=== PATIENT | female | born 1935 | race Hispanic/Latino ===

== ENCOUNTER 2017-09-21 23:09 | Emergency (ER) | payer MEDICARE, OTHER ==
[~2017-09-21] VITALS: Ht 149.9 cm; Wt 68.0 kg
[~2017-09-21 23:09] MED LIST: ARICEPT5 MG PO; ASPIRIN EC81 MG PO; ATELVIA35 MG PO; ATORVASTATIN CA10 MG PO; CARBAMAZEPINE200 MG PO; CLOPIDOGREL75 MG PO; DIOVAN160 MG PO; ISOSORBIDE MONO30 MG PO; LASIX40 MG PO; LEVAQUIN500 MG PO; MECLIZINE HCL12.5 MG PO; METOPROLOL TAR100 MG PO; METOPROLOL TART50 MG PO; OMEPRAZOLE20 MG PO; POTASSIUM CHLO20 ME1 PO; TYLENOL WITH C1 EACH PO
[2017-09-21] MEDS ORDERED: TRAMADOL HCL 50 MG TAB PO ONE (23:30)
[2017-09-21 23:39] LABS: BILIRUBIN,URINE NEGATIVE (NEGATIVE); KETONES,URINE NEGATIVE (NEGATIVE); LEUKOCYTE ESTERASE ,URINE NEGATIVE (NEGATIVE); NITRITE,URINE NEGATIVE (NEGATIVE); PROTEIN,URINE DIPSTICK NEGATIVE (NEGATIVE); URINE UROBILINOGEN 0.2 mg/dL (0.2 - 1)
[2017-09-21 23:40] LABS: CLARITY,URINE CLEAR (CLEAR); COLOR,URINE STRAW (YELLOW)
[2017-09-21 23:46] LABS: BACTERIA,URINE FEW /HPF; EPITHELIAL CELLS,URINE RARE /LPF; WBC,URINE (MAN) 0-5 /HPF (0-5)
--- NOTE | 2017-09-22 00:33 | Diagnostic Imaging Report ---
LUMBAR 3 VIEW, THORACIC SPINE 2VW Comparison: None Clinical history: Back pain Findings: Thoracic spine: Image quality degraded by motion artifact. Limited visualization of the cervicothoracic junction. Kyphosis with multilevel degenerative changes and mild anterior wedging of the midthoracic and lower vertebral bodies. Incidental median sternotomy wires, cholecystectomy clips. Lumbar spine: Slightly exaggerated lordosis. No significant listhesis. Moderate to severe L4 and S1 facet arthrosis. Impression: Multilevel degenerative changes and mild anterior wedging deformities with thoracic kyphosis and exaggerated lumbar lordosis. Signed by: Dr Zamzam Duffy MD on 09/22/2017 12:30 AM
[2017-09-22 01:25] VITALS: BP 143/73
== END 2017-09-22 01:34 | disposition home or self-care (01) ==
LOC: ER 23:09
DX: S39.012A Strain of muscle, fascia and tendon of lower back, initial encounter (principal); I11.0 Hypertensive heart disease with heart failure; I50.9 Heart failure, unspecified; I25.10 Atherosclerotic heart disease of native coronary artery without angina pectoris; Z86.711 Personal history of pulmonary embolism; Z86.718 Personal history of other venous thrombosis and embolism
CPT/HCPCS: 72070; 72100; 81001; 99283

== ENCOUNTER 2017-11-17 22:22 | Inpatient (IN) | payer MEDICARE, OTHER ==
[~2017-11-17] VITALS: Ht 149.9 cm; Wt 69.0 kg
--- OUTSIDE RECORDS SUMMARY | 2017-11-17 22:24 | XMS REPORT ---
Author Author [facility] Address Unknown Phone Unavailable Care Team Providers Care Unattended Ground Sensor Specialist Name Role Phone VAISHNAVI URIAS Unavailable Unavailable Problems This patient has no known problems. Allergies, Adverse Reactions, Alerts This patient has no known allergies or adverse reactions. Medications This patient has no known medications. Results Test Description Test Time Test Comments Text Results Atomic Results Result Comments THORACIC SPINE 2VW [place] [address] Patient Name: SUNNY MORALES MR #: [id number] : 1935 Age/Sex: 82/F Req # : [id number] Adm Physician: Ordered by: VAISHNAVI URIAS MD Report # : [id number] Location: ER Room/Bed: Procedure: 1228 [id number] DX/THORACIC SPINE 2VW Exam Date: 09/21/17 Exam Time: 2300 REPORT STATUS: Signed LUMBAR 3 VIEW, THORACIC SPINE 2VW Comparison: None Clinical history: Back pain Findings: Thoracic spine: Image quality degraded by motion artifact. Limited visualization of the cervicothoracic junction. Kyphosis with multilevel degenerative changes and mild anterior wedging of the midthoracic and lower vertebral bodies. Incidental median sternotomy wires, cholecystectomy clips. Lumbar spine: Slightly exaggerated lordosis. No significant listhesis. Moderate to severe L4 and S1 facet arthrosis. Impression: Multilevel degenerative changes and mild anterior wedging deformities with thoracic kyphosis and exaggerated lumbar lordosis. Signed by: Dr Aislinn Duffy MD on 09/22/2017 12:30 AM Dictated By: AISLINN DUFFY MD Transcribed By: AUSTIN on 09/22/1729 COPY TO: VAISHNAVI URIAS MD LUMBAR 3 VIEW [place] [address] Patient Name: SUNNY MORALES MR #: [id number] : 1935 Age/Sex: 82/F Req #: [id number] Adm Physician: Ordered by: VAISHNAVI URIAS MD Report #: [id number] Location: ER Room/Bed: Procedure: [id number] DX/LUMBAR 3 VIEW Exam Date: 09/21/17 Exam Time : 2300 REPORT STATUS: Signed LUMBAR 3 VIEW, THORACIC SPINE 2VW Comparison: None Clinical history: Back pain Findings: Thoracic spine: Image quality degraded by motion artifact. Limited visualization of the cervicothoracic junction. Kyphosis with multilevel degenerative changes and mild anterior wedging of the midthoracic and lower vertebral bodies. Incidental median sternotomy wires, cholecystectomy clips. Lumbar spine: Slightly exaggerated lordosis. No significant listhesis. Moderate to severe L4 and S1 facet arthrosis. Impression: Multilevel degenerative changes and mild anterior wedging deformities with thoracic kyphosis and exaggerated lumbar lordosis. Signed by: Dr Aislinn Duffy MD on 09/22/2017 12:30 AM Dictated By: AISLINN DUFFY MD Transcribed By: AUSTIN on 09/22/1729 COPY TO: VAISHNAVI URIAS MD
[2017-11-17 23:16] LABS: BASOPHILS % 0.6 % (0.0-1.0); EOSINOPHILS # (AUTO) 0.1 (0.0-0.4); EOSINOPHILS % 1.4 % (0.0-6.0); HEMATOCRIT 32.3 % (34.2-44.1); HEMOGLOBIN 11.1 g/dL (12.0-16.0); LYMPHOCYTES # (AUTO) 2.1 (1.0-3.2); LYMPHOCYTES % 31.7 % (18.0-39.1); MEAN CORPUSCULAR HEMOGLOBIN 30.1 pg (28-32); MEAN CORPUSCULAR HGB CONC 34.4 g/dL (31-35); MEAN CORPUSCULAR VOLUME 87.5 fL (81-99); MONOCYTES # (AUTO) 0.5 (0.2-0.8); MONOCYTES % 7.9 % (4.4-11.3); NEUTROPHILS # (AUTO) 3.8 (2.1-6.9); NEUTROPHILS % 58.1 % (38.7-80.0); PLATELET COUNT 139 x10e3/uL (140-360); RED BLOOD COUNT 3.69 x10e6/uL (3.6-5.1); RED CELL DISTRIBUTION WIDTH 12.5 % (11.7-14.4)
[2017-11-17 23:21] LABS: INR 1.33; PROTHROMBIN TIME 15.5 seconds (11.9-14.5)
[2017-11-17] MEDS ORDERED: DILTIAZEM HCL60 MG PO (23:33)
[2017-11-17] MEDS ORDERED: ATORVASTATIN CA20 MG PO (23:33)
[2017-11-17] MEDS ORDERED: NITROGLYCERIN0.4 MG SL (23:33)
[2017-11-17] MEDS ORDERED: TRAZODONE HCL50 MG PO (23:33)
[2017-11-17] MEDS ORDERED: AMIODARONE HCL200 MG PO (23:33)
[2017-11-17] MEDS ORDERED: XARELTO10 MG PO (23:33)
[2017-11-17] MEDS ORDERED: TIZANIDINE HCL4 MG PO (23:33)
[2017-11-17] MEDS ORDERED: CARBAMAZEPINE200 MG PO (23:33)
[2017-11-17 23:37] LABS: ALANINE AMINOTRANSFERASE 15 IU/L (0-55); ALBUMIN/GLOBULIN RATIO 1.2 (0.8-2.0); ALKALINE PHOSPHATASE 119 IU/L (40-150); ANION GAP 13.9 mmol/L (8-16); BLOOD UREA NITROGEN 31 mg/dL (7-26); BUN/CREATININE RATIO 24 (6-25); CALCIUM 11.1 mg/dL (8.4-10.2); CARBON DIOXIDE 25 mmol/L (22-29); CHLORIDE 99 mmol/L (98-107); CREATINE KINASE 45 IU/L (29-168); CREATININE, SERUM 1.29 mg/dL (0.57-1.11); EST GLOMERULAR FILTRATION RATE 40 ML/MIN (60-); GLUCOSE 119 mg/dL (74-118); POTASSIUM 3.9 mmol/L (3.5-5.1); SODIUM 134 mmol/L (136-145)
[2017-11-18] VITALS (9 sets, daily range): BP systolic 104–140; BP diastolic 67–75
--- NOTE | 2017-11-18 00:27 | Diagnostic Imaging Report ---
EXAMINATION: CHEST SINGLE (PORTABLE) INDICATION: Chest pain. COMPARISON: 10/25/2016 FINDINGS: TUBES and LINES: None. LUNGS: Lungs are not well inflated. Significant left lower lobe retrocardiac atelectasis and airspace disease. PLEURA: Small left pleural effusion is present. HEART AND MEDIASTINUM: Cardiac size is mildly enlarged. There are atherosclerotic calcifications within the aorta. Midline sternotomy wires are intact. BONES AND SOFT TISSUES: No acute osseous lesion. Soft tissues are unremarkable. UPPER ABDOMEN: No free air under the diaphragm. IMPRESSION: Left lower lobe airspace disease is suspicious for pneumonia and superimposed atelectasis. Small left pleural effusion is present. Signed by: Dr. Delvin Haider M.D. on 11/18/2017 12:24 AM
[2017-11-18] MEDS ORDERED: SODIUM CHLORIDE 0.9% 1000ML 1,000 ML IV STA (00:38)
[2017-11-18] MEDS ORDERED: VANCOMYCIN 1GM/NS 250 ML 250 ML IV ONE (00:45)
[2017-11-18 01:02] LABS: BILIRUBIN,URINE NEGATIVE (NEGATIVE); KETONES,URINE NEGATIVE (NEGATIVE); LEUKOCYTE ESTERASE ,URINE NEGATIVE (NEGATIVE); NITRITE,URINE NEGATIVE (NEGATIVE); PROTEIN,URINE DIPSTICK NEGATIVE (NEGATIVE); URINE UROBILINOGEN 0.2 mg/dL (0.2 - 1)
[2017-11-18 01:03] LABS: CLARITY,URINE CLEAR (CLEAR); COLOR,URINE YELLOW (YELLOW)
[2017-11-18 01:10] LABS: BACTERIA,URINE RARE /HPF; EPITHELIAL CELLS,URINE RARE /LPF; RBC,URINE 0-5 /HPF (0-5); WBC,URINE (MAN) 0-5 /HPF (0-5)
[2017-11-18] MEDS: CEFEPIME HCL 2 GM VIAL IV SCH ×2 (01:30→12:01)
[2017-11-18] MEDS: AZITHROMYCIN 500MG/NS 250 ML 250 ML IV SCH ×2 (01:30→08:42)
[2017-11-18] MEDS ORDERED: ONDANSETRON HCL INJ 2 MG/ML VIAL IV PRN (02:00)
[2017-11-18] MEDS ORDERED: FAMOTIDINE 20 MG/2 ML VIAL IV SCH (02:00)
[2017-11-18] MEDS ORDERED: SODIUM CHLORIDE 0.9% 1000ML 1,000 ML IV SCH (02:00)
[2017-11-18] MEDS: FAMOTIDINE 20 MG/2 ML VIAL IV SCH ×2 (08:42→21:15)
[2017-11-18] MEDS: ASPIRIN 81 MG ENTERIC COATED PO SCH (08:42)
[2017-11-18] MEDS ORDERED: TRAZODONE HCL 50 MG TAB PO PRN (09:45)
[2017-11-18] MEDS ORDERED: TIZANIDINE HCL 4 MG TAB PO PRN (09:45)
[2017-11-18 10:44] LABS: BASOPHILS % 0.6 % (0.0-1.0); EOSINOPHILS # (AUTO) 0.1 (0.0-0.4); EOSINOPHILS % 1.4 % (0.0-6.0); HEMATOCRIT 34.3 % (34.2-44.1); HEMOGLOBIN 11.3 g/dL (12.0-16.0); LYMPHOCYTES # (AUTO) 1.6 (1.0-3.2); LYMPHOCYTES % 30.6 % (18.0-39.1); MEAN CORPUSCULAR HEMOGLOBIN 29.7 pg (28-32); MEAN CORPUSCULAR HGB CONC 32.9 g/dL (31-35); MEAN CORPUSCULAR VOLUME 90.3 fL (81-99); MONOCYTES # (AUTO) 0.5 (0.2-0.8); NEUTROPHILS % 58.2 % (38.7-80.0); PLATELET COUNT 125 x10e3/uL (140-360); RED CELL DISTRIBUTION WIDTH 12.6 % (11.7-14.4)
--- NOTE | 2017-11-18 10:45 | History and Physical ---
CHIEF COMPLAINT: Chest pain, palpitations and generalized weakness. HPI: This is an 82-year-old female with a past medical history of atrial fibrillation, on anticoagulation, hyperlipidemia, who comes into the ED with complaints of cough, congestion, chest pain, and chest pressure with underlying palpitations for the last several days. The patient denies any fever at home. She does endorse some cough and congestion and some chest pressure. Also, complains of generalized weakness and fatigue. The patient was brought in yesterday due to those particular symptoms. The patient was seen and evaluated at bedside on the medical floor. Currently, her heart rate is tachycardic at 115. Her blood pressure is well managed and controlled. Her chest x-ray was consistent with pneumonia. REVIEW OF SYSTEMS: Pertinent positives are cough, congestion, chest pressure, palpitations, and dizziness. Pertinent negatives are no nausea, vomiting, diarrhea, dysuria, hematuria, frequency, urgency, lightheadedness, fever, shortness of breath, or any other complaints. The rest of the 14-point review of systems have been reviewed with the patient and are negative. ALLERGIES: NO KNOWN DRUG ALLERGIES. HOME MEDICATIONS 1. Xarelto 15 mg daily. 2. Tizanidine 2 mg every 12 hours as needed for pain. 3. Trazodone 50 mg as needed for sleep. 4. Lipitor 40 mg at bedtime. 5. Tegretol 200 mg p.o. t.i.d. 6. Aspirin 81 mg daily. PAST MEDICAL HISTORY: She has muscle spasms, AFib, on anticoagulation, hyperlipidemia, CAD. SURGICAL HISTORY: None. FAMILY HISTORY: Hypertension and diabetes. SOCIAL HISTORY: No drugs. No alcohol. Does not smoke. Lives with family and . PHYSICAL EXAMINATION VITAL SIGNS: Temperature is 97.2, pulse 115, respiratory rate 16, blood pressure 125/68, pulse ox 100% on room air. GENERAL: Not in acute distress. Alert and oriented times 3. Cooperative on exam. HEENT: Head is normocephalic and atraumatic. Eyes: Pupils equal, round and reactive to light. Bilateral extraocular movements are intact bilaterally. NECK: Supple. Good range of motion. Throat with no evidence of any hemorrhage or exudates in the posterior pharynx. Has poor dentition. PULMONARY: Clear to auscultation bilaterally. No wheezing. No rales. No rhonchi. No crackles appreciated. CARDIOVASCULAR: Positive S1 and S2. No murmurs, rubs or gallops appreciated. ABDOMEN: Soft, nondistended and nontender to palpation. Bowel sounds present. MUSCULOSKELETAL: Strength is 5/5 throughout on examination. No deficits appreciated. NEUROLOGICAL: Cranial nerves II-XII are grossly intact. No evidence of any neurologic deficit on exam. SKIN: Intact. Warm to touch. Good cap refill. PSYCHIATRIC: Normal affect and mood. EXTREMITIES: No edema. Good range of motion throughout. LAB FINDINGS: Show a white count of 6.5, hemoglobin 11, hematocrit 32, and platelets of 139,000. Coagulations are normal. Chemistry: Sodium 134, potassium 3.9, chloride 99, bicarb 25, anion gap of 13, BUN 31, creatinine 1.3, glucose 119. Lactic acid 9.5 which was normal. Calcium 11.1. LFTs are normal. BNP is 151. Albumin was 4. Magnesium is 2.1. Urinalysis was negative. Flu test was negative. Blood and urine cultures are pending. IMAGING STUDIES: Chest x-ray was consistent with left lower lobe pneumonia. ASSESSMENT AND PLAN 1. Chest pain: Likely atypical in nature due to underlying atrial fibrillation and palpitations. Currently, she is in atrial fibrillation. Rate is controlled. Will continue with beta blockers, amiodarone, cardiology consultation, Xarelto for anticoagulation. 2. Atrial fibrillation last night with rapid ventricular response: Currently, her rate is monitored closely. Her last heart rate was 115 recorded. Continue on beta blockade and amiodarone. Cardiology consultation and Xarelto. 3. Community-acquired pneumonia: Chest x-ray was consistent with left lower pneumonia. Continue with cefepime and azithromycin. 4. Dehydration: Decreased oral intake. Currently, hydrated. Discontinue intravenous fluids. 5. Acute kidney injury secondary to dehydration, resolved. 6. Prophylaxis: Xarelto. 7. Physical therapy and occupational therapy to evaluate and treat. 8. Fluid, electrolytes and nutrition: Discontinue intravenous fluids as the patient is tolerating diet well. Continue with heart-healthy diet. 9. Disposition: Inpatient. Cardiology consulted. Job#: [id number] RI
[2017-11-18] MEDS ORDERED: ASPIRIN 81 MG CHEW TAB PO ONE (11:00)
[2017-11-18 11:02] LABS: CHOL/HDL RATIO 2.6 (3.0-3.6)
[2017-11-18 11:08] LABS: CREATINE KINASE 36 IU/L (29-168)
[2017-11-18 11:24] LABS: THYROID STIMULATING HORMONE 2.895 uIU/mL (0.350-4.940)
[2017-11-18] MEDS ORDERED: DILTIAZEM HCL 60 MG TAB PO SCH (11:30)
[2017-11-18] MEDS: DILTIAZEM HCL 30 MG TAB PO SCH ×3 (12:01→23:37)
--- NOTE | 2017-11-18 15:01 | Consultation ---
DATE OF CONSULTATION: November 18, 2017 REASON FOR CONSULTATION: Chest pain. HISTORY OF PRESENT ILLNESS: Ms. Johnson is an 82-year-old lady with a past medical history as listed below, who was seen at the office yesterday morning. Reported suddenly developing chest pain last night. She also has cough and congestion and so was brought to the hospital. Chest pain is all across the chest and worse when she coughs. She reportedly also had some fever and was getting dizzy, but no expectoration. Feels a little better today. The patient speaks mostly Telugu and most of the history is obtained through an pay station department manager. Family is at the bedside. REVIEW OF SYSTEMS CONSTITUTIONAL: Has some fatigue and weakness. HEENT: No headache, blurring of vision, seizures, or syncope. Dizziness. CARDIOVASCULAR: Has chest discomfort. Has dyspnea. No orthopnea or PND. RESPIRATORY: Cough and fever. GI: No abdominal pain, vomiting or diarrhea. : No dysuria or frequency. ALLERGIES: NO KNOWN DRUG ALLERGIES. MEDICATIONS: See list. PAST MEDICAL HISTORY: History of atrial fibrillation, history of hypertension, history of CHF, history of DVT, history of pulmonary embolism. SOCIAL HISTORY: Does not smoke or drink. Mostly bedbound. FAMILY HISTORY: Noncontributory. PHYSICAL EXAMINATION GENERAL: A moderately built and nourished lady awake, alert and not in any obvious distress. VITALS: Heart rate is 115, blood pressure 120/68, respiratory rate 16, temperature is 97.2. HEENT: Atraumatic . NECK: Supple. No lymphadenopathy. CARDIOVASCULAR: First and 2nd heart sounds heard. A 2/6 systolic murmur heard at the left sternal border. CHEST: Decreased air entry at the bases. No adventitious sounds are appreciated. ABDOMEN: Soft and nontender. EXTREMITIES: With edema. LABS: Sodium is 130, potassium 3.4, chloride 99, bicarb 25, BUN 31, creatinine 1.2, glucose 119. Hemoglobin is 11.1, hematocrit 32.3, and platelets 139,000. White count is 6.5. EKG shows atrial fibrillation at 89 beats per minute. EKG shows nonspecific ST-T changes. Chest x-ray shows left lower lobe airspace disease suspicious for pneumonia and superimposed atelectasis. BNP is 151. Troponin 0.01. IMPRESSION 1. Chest pain. 2. Atrial fibrillation. 3. History of hypertension. 4. History of deep venous thrombosis. 5. Borderline elevated BNP. 6. Pneumonia. PLAN 1. Continue to follow cardiac enzymes. 2. Get echocardiogram to assess LV function and valvular function. 3. The patient's heart rate fluctuates. Will start her on beta blockers. 4. The patient was on warfarin at home. Continue the same. 5. The patient has been started on antibiotics. 6. Further cardiac workup depending on clinical course. I discussed my impression and plan with the patient through inerpretor. As always, I appreciate and thank you very much for the referral. Job#: [id number] NALDO NOLAND
[2017-11-18] MEDS: CARBAMAZEPINE 200 MG TAB PO SCH ×2 (15:09→21:15)
[2017-11-18 19:05] LABS: CREATINE KINASE MB 0.4 ng/mL (0-5.0)
[2017-11-18] MEDS: ATORVASTATIN 20 MG TAB PO SCH (21:15)
[2017-11-19] VITALS (8 sets, daily range): BP systolic 104–146; BP diastolic 67–98
[2017-11-19] MEDS: CEFEPIME HCL 2 GM VIAL IV SCH ×2 (00:57→13:23)
[2017-11-19] MEDS: DILTIAZEM HCL 30 MG TAB PO SCH ×3 (06:23→16:24)
[2017-11-19] MEDS: FAMOTIDINE 20 MG/2 ML VIAL IV SCH ×2 (07:56→20:30)
[2017-11-19] MEDS: PANTOPRAZOLE SOD 40 MG TABEC PO SCH (07:56)
[2017-11-19] MEDS: ISOSORBIDE MONONITRATE 30 MG TAB CR PO SCH (08:42)
[2017-11-19] MEDS: ASPIRIN 81 MG ENTERIC COATED PO SCH (08:42)
[2017-11-19] MEDS: CARBAMAZEPINE 200 MG TAB PO SCH ×3 (08:42→20:30)
[2017-11-19] MEDS: AMIODARONE HCL 200 MG TAB PO SCH (08:42)
[2017-11-19] MEDS: AZITHROMYCIN 500MG/NS 250 ML 250 ML IV SCH (08:42)
[2017-11-19] MEDS: RIVAROXABAN 15 MG TABLET PO SCH (08:42)
[2017-11-19 09:35] LABS: BASOPHILS % 0.6 % (0.0-1.0); EOSINOPHILS # (AUTO) 0.1 (0.0-0.4); EOSINOPHILS % 1.6 % (0.0-6.0); HEMATOCRIT 37.8 % (34.2-44.1); HEMOGLOBIN 12.7 g/dL (12.0-16.0); LYMPHOCYTES # (AUTO) 1.5 (1.0-3.2); LYMPHOCYTES % 30.3 % (18.0-39.1); MEAN CORPUSCULAR HEMOGLOBIN 30.2 pg (28-32); MEAN CORPUSCULAR HGB CONC 33.6 g/dL (31-35); MONOCYTES # (AUTO) 0.2 (0.2-0.8); MONOCYTES % 4.3 % (4.4-11.3); NEUTROPHILS # (AUTO) 3.2 (2.1-6.9); PLATELET COUNT 142 x10e3/uL (140-360); RED CELL DISTRIBUTION WIDTH 12.6 % (11.7-14.4)
[2017-11-19 09:54] LABS: ALBUMIN 3.6 g/dL (3.5-5.0); CALCIUM 10.4 mg/dL (8.4-10.2); CHOL/HDL RATIO 2.8 (3.0-3.6); CREATININE, SERUM 0.94 mg/dL (0.57-1.11)
[2017-11-19] MEDS ORDERED: GUAIFENESIN/CODEINE 10 ML CUP PO PRN (10:45)
[2017-11-19] MEDS ORDERED: MELATONIN 5 MG TABLET PO PRN (10:45)
[2017-11-19] MEDS: ACETAMINOPHEN 325 MG TAB PO PRN (11:12)
[2017-11-19] MEDS: LEVALBUTEROL HCL SOLN NEBU 1.25 MG/3 ML NEB INH PRN (11:13)
[2017-11-19] MEDS: ALPRAZOLAM 0.25 MG TAB PO PRN (11:41)
[2017-11-19 11:45] LABS: CREATINE KINASE 32 IU/L (29-168)
--- NOTE | 2017-11-19 11:50 | Diagnostic Imaging Report ---
EXAMINATION: CHEST SINGLE (PORTABLE) 11/19/2017 11:11 AM COMPARISON: 11/17/2017 INDICATION: Follow-up pneumonia DISCUSSION: LINES: None. LUNGS: Left lower lobe and lingular airspace opacity, stable or slightly improved since the prior examination. Right basilar linear atelectasis. PLEURA: No pleural effusion or pneumothorax. HEART AND MEDIASTINUM: The cardiomediastinal silhouette is unchanged. BONES AND SOFT TISSUES: No acute osseous lesion. The soft tissues are normal. IMPRESSION: Left lower lobe/lingular opacity, suspicious for pneumonia, stable or slightly improved since the prior examination. Elías Llamas MD Signed by: Dr. Elías Llamas M.D. on 11/19/2017 11:47 AM
[2017-11-19] MEDS: ATORVASTATIN 20 MG TAB PO SCH (20:30)
[2017-11-20] VITALS (7 sets, daily range): BP systolic 105–146; BP diastolic 64–95
[2017-11-20] MEDS: DILTIAZEM HCL 30 MG TAB PO SCH ×5 (00:50→23:55)
[2017-11-20] MEDS: CEFEPIME HCL 2 GM VIAL IV SCH ×2 (00:50→12:37)
[2017-11-20 07:30] LABS: BASOPHILS % 0.4 % (0.0-1.0); EOSINOPHILS # (AUTO) 0.1 (0.0-0.4); EOSINOPHILS % 1.7 % (0.0-6.0); HEMOGLOBIN 12.8 g/dL (12.0-16.0); LYMPHOCYTES # (AUTO) 2.5 (1.0-3.2); LYMPHOCYTES % 34.5 % (18.0-39.1); MEAN CORPUSCULAR HEMOGLOBIN 30.5 pg (28-32); MEAN CORPUSCULAR HGB CONC 33.7 g/dL (31-35); MEAN CORPUSCULAR VOLUME 90.5 fL (81-99); MONOCYTES # (AUTO) 0.6 (0.2-0.8); MONOCYTES % 7.8 % (4.4-11.3); NEUTROPHILS % 55.5 % (38.7-80.0); PLATELET COUNT 146 x10e3/uL (140-360); RED CELL DISTRIBUTION WIDTH 12.6 % (11.7-14.4)
[2017-11-20] MEDS: LEVALBUTEROL HCL SOLN NEBU 1.25 MG/3 ML NEB INH PRN (07:30)
[2017-11-20 07:52] LABS: ALBUMIN 3.6 g/dL (3.5-5.0); ANION GAP 10.6 mmol/L (8-16); CALCIUM 10.3 mg/dL (8.4-10.2); CREATININE, SERUM 0.91 mg/dL (0.57-1.11); POTASSIUM 4.6 mmol/L (3.5-5.1)
[2017-11-20] MEDS: PANTOPRAZOLE SOD 40 MG TABEC PO SCH (08:30)
[2017-11-20] MEDS: ISOSORBIDE MONONITRATE 30 MG TAB CR PO SCH (10:00)
[2017-11-20] MEDS: CARBAMAZEPINE 200 MG TAB PO SCH ×3 (10:00→22:56)
[2017-11-20] MEDS: AMIODARONE HCL 200 MG TAB PO SCH (10:00)
[2017-11-20] MEDS: FAMOTIDINE 20 MG/2 ML VIAL IV SCH (10:00)
[2017-11-20] MEDS: AZITHROMYCIN 500MG/NS 250 ML 250 ML IV SCH (10:00)
[2017-11-20] MEDS: RIVAROXABAN 15 MG TABLET PO SCH (10:00)
[2017-11-20] MEDS: ASPIRIN 81 MG ENTERIC COATED PO SCH (10:00)
[2017-11-20] MEDS ORDERED: SODIUM CHLORIDE 0.9% 1000ML 1,000 ML IV SCH (14:15)
[2017-11-20] MEDS ORDERED: GUAIFENESIN/CODEINE 10 ML CUP PO PRN (14:15)
[2017-11-20] MEDS: FAMOTIDINE 20 MG TAB PO SCH (17:30)
[2017-11-20] MEDS ORDERED: CITRATE OF MAGNESIA 300ML BOTTLE PO ONE (18:15)
[2017-11-20] MEDS ORDERED: DOCUSATE SODIUM 100 MG CAP PO ONE (18:15)
[2017-11-20] MEDS: ATORVASTATIN 40 MG TAB PO SCH (22:56)
[2017-11-21] VITALS: BP 111/67
[2017-11-21] MEDS: CEFEPIME HCL 2 GM VIAL IV SCH ×2 (00:52→12:46)
[2017-11-21] MEDS: ALPRAZOLAM 0.25 MG TAB PO PRN (01:50)
[2017-11-21 04:00] VITALS: BP 142/89
[2017-11-21] MEDS: DILTIAZEM HCL 30 MG TAB PO SCH ×3 (06:15→17:10)
[2017-11-21] MEDS ORDERED: ASPIRIN 81 MG CHEW TAB PO ONE (09:30)
[2017-11-21] MEDS: AMIODARONE HCL 200 MG TAB PO SCH (09:31)
[2017-11-21] MEDS: FAMOTIDINE 20 MG TAB PO SCH ×2 (09:31→17:10)
[2017-11-21] MEDS: ASPIRIN 81 MG ENTERIC COATED PO SCH (09:31)
[2017-11-21] MEDS: AZITHROMYCIN 500MG/NS 250 ML 250 ML IV SCH (09:31)
[2017-11-21] MEDS: PANTOPRAZOLE SOD 40 MG TABEC PO SCH (09:31)
[2017-11-21] MEDS: ISOSORBIDE MONONITRATE 30 MG TAB CR PO SCH (09:37)
[2017-11-21] MEDS: RIVAROXABAN 15 MG TABLET PO SCH (09:37)
[2017-11-21] MEDS: CARBAMAZEPINE 200 MG TAB PO SCH ×3 (09:37→21:40)
[2017-11-21 09:51] LABS: BASOPHILS % 0.7 % (0.0-1.0); EOSINOPHILS # (AUTO) 0.1 (0.0-0.4); EOSINOPHILS % 1.7 % (0.0-6.0); HEMATOCRIT 34.4 % (34.2-44.1); HEMOGLOBIN 11.6 g/dL (12.0-16.0); LYMPHOCYTES # (AUTO) 1.6 (1.0-3.2); MEAN CORPUSCULAR HEMOGLOBIN 30.1 pg (28-32); MEAN CORPUSCULAR HGB CONC 33.7 g/dL (31-35); MEAN CORPUSCULAR VOLUME 89.1 fL (81-99); MONOCYTES # (AUTO) 0.4 (0.2-0.8); MONOCYTES % 6.4 % (4.4-11.3); NEUTROPHILS # (AUTO) 3.7 (2.1-6.9); PLATELET COUNT 139 x10e3/uL (140-360); RED BLOOD COUNT 3.86 x10e6/uL (3.6-5.1); RED CELL DISTRIBUTION WIDTH 12.5 % (11.7-14.4)
[2017-11-21 10:07] LABS: ANION GAP 10.6 mmol/L (8-16); BLOOD UREA NITROGEN 16 mg/dL (7-26); BUN/CREATININE RATIO 18 (6-25); CALCIUM 10.5 mg/dL (8.4-10.2); CARBON DIOXIDE 26 mmol/L (22-29); CHLORIDE 105 mmol/L (98-107); CREATININE, SERUM 0.89 mg/dL (0.57-1.11); EST GLOMERULAR FILTRATION RATE > 60 ML/MIN (60-); GLUCOSE 99 mg/dL (74-118); POTASSIUM 4.6 mmol/L (3.5-5.1); SODIUM 137 mmol/L (136-145)
--- NOTE | 2017-11-21 10:36 | Diagnostic Imaging Report ---
History:Stroke protocol Comparison studies:None Technique: Axial images were obtained from the skull base to the vertex. Coronal and sagittal images reconstructed from the axial data. Intravenous contrast: None Findings: Motion artifact limits evaluation Scalp/skull: No abnormalities. Extra-axial spaces: No masses. No fluid collections. Brain sulci: Moderately prominent. Ventricles: Moderate compensatory dilatation. No hydrocephalus. Parenchyma: Scattered and confluent hypodensities in the supratentorial white matter are small vessel ischemic changes. No masses, hemorrhage, acute or chronic cortical vascular insults. Sellar/suprasellar region: No abnormalities. Craniocervical junction: Patent foramen magnum. No Chiari one malformation. Incidental findings: Atherosclerotic calcifications in the carotid siphons . Impression: Limited study due to motion No significant acute abnormalities. Chronic findings: 1. Mild generalized volume loss. 2. Moderate supratentorial white matter small vessel ischemic changes. Signed by: DR Ruben Franco M.D. on 11/21/2017 10:38 AM
[2017-11-21 12:00] VITALS: BP 127/72
--- NOTE | 2017-11-21 15:38 | Diagnostic Imaging Report ---
History: Rule out stroke Comparison studies: CT head 11/21/2017 Technique: Sagittal T2; axial DWI, FLAIR, MPGR, T1, Coronal FLAIR. Intravenous contrast: None Findings: Scalp: Normal in signal . No masses . Bone marrow: Normal in signal intensity. Extra-axial: No masses, no fluid collections. Brain sulci: Appropriate for age. Ventricles: Normal in size . No hydrocephalus . Parenchyma: Scattered T2/FLAIR hyperintensities of the periventricular and the white matter No masses, hemorrhage, acute or chronic vascular insults. Suprasellar region: No abnormalities. Craniocervical junction: No abnormalities. Patent foramen magnum. No Chiari one malformation. Vessels: Normal flow-voids in the arteries and sinuses. Bilateral cataract surgery changes IMPRESSION: 1. No acute intracranial abnormalities. 2. Moderate chronic microvascular ischemic changes of the white matter. Mild diffuse volume loss Signed by: DR Ruben Franco M.D. on 11/21/2017 3:34 PM
[2017-11-21 15:57] VITALS: BP 132/86
[2017-11-21] MEDS ORDERED: GUAIFENESIN/CODEINE 10 ML CUP PO PRN (19:00)
[2017-11-21 20:00] VITALS: BP 149/66
[2017-11-21 20:05] VITALS: BP 149/66
[2017-11-21] MEDS: ALBUTEROL/IPRATROPIUM 3 ML NEB NEB SCH (20:45)
[2017-11-21] MEDS: ATORVASTATIN 40 MG TAB PO SCH (21:40)
[2017-11-22] VITALS (8 sets, daily range): BP systolic 67–185; BP diastolic 70–99
[2017-11-22] MEDS: DILTIAZEM HCL 30 MG TAB PO SCH ×5 (00:46→23:59)
[2017-11-22] MEDS: CEFEPIME HCL 2 GM VIAL IV SCH ×2 (00:46→17:44)
[2017-11-22] MEDS: ALBUTEROL/IPRATROPIUM 3 ML NEB NEB SCH ×4 (01:30→21:08)
[2017-11-22] MEDS: ASPIRIN 81 MG ENTERIC COATED PO SCH (08:49)
[2017-11-22] MEDS: AMIODARONE HCL 200 MG TAB PO SCH (08:49)
[2017-11-22] MEDS: FAMOTIDINE 20 MG TAB PO SCH ×2 (08:49→17:09)
[2017-11-22] MEDS: PANTOPRAZOLE SOD 40 MG TABEC PO SCH (08:49)
[2017-11-22] MEDS: RIVAROXABAN 15 MG TABLET PO SCH (08:50)
[2017-11-22] MEDS: ISOSORBIDE MONONITRATE 30 MG TAB CR PO SCH (08:50)
[2017-11-22] MEDS: CARBAMAZEPINE 200 MG TAB PO SCH (09:17)
[2017-11-22] MEDS ORDERED: ONDANSETRON HCL 4 MG ORAL DISINTEGRATING TAB PO ONE (14:15)
[2017-11-22] MEDS: ACETAMINOPHEN 325 MG TAB PO PRN (14:26)
--- NOTE | 2017-11-22 15:55 | Diagnostic Imaging Report ---
PROCEDURE: CHEST XRAY LINE PLACEMENT 1541 hours COMPARISON: 11/19/17. INDICATIONS: PICC LINE PLACEMENT TODAY FINDINGS: LUNGS: Multifocal ground glass opacities have developed. The diaphragms are poorly visualized, particularly the left hemidiaphragm. Pulmonary vascular markings are prominent. PLEURA: No pneumothorax. LINES/TUBES: Right PICC line terminates in the SVC. HEART \T\ MEDIASTINUM: Stable cardiomegaly and aortic ectasia. BONES \T\ SOFT TISSUES: Sternotomy wires appear intact.. CONCLUSION: Right PICC line as described above. No pneumothorax. Pulmonary vascular congestion and groundglass opacities suggestive of edema. Small pleural effusions are suspected. Dictated by: Elton Herzog M.D. on 11/22/2017 at 15:55 Electronically approved by: Elton Herzog M.D. on 11/22/2017 at 15:55
[2017-11-22] MEDS: AZITHROMYCIN 500MG/NS 250 ML 250 ML IV SCH (15:58)
--- NOTE | 2017-11-22 21:01 | Consultation ---
DATE OF CONSULTATION: November 22, 2017 NEUROLOGICAL CONSULTATION Patient of Dr. Lit Escoto. TIME: 5 p.m. REASON FOR CONSULTATION: Tremors of the arms and possible seizure. HISTORY: This is an 82-year-old female who was brought to the emergency room because of chest pain, congestion, cough. In the emergency room, was diagnosed with dementia, is being treated with antibiotics. PAST HISTORY: Patient has history of atrial fibrillation, history of hypertension, history of congestive heart failure, DVT, and in the past pulmonary embolism. The patient also has history of trigeminal neuralgia on the right side, for which she has been put on carbamazepine 200 mg 3 times a day. Apparently in the hospital yesterday, the patient was dazed and there were some tremors of the arms while the daughter said the mom was withdrawing to the right side, lasting for short period of time. She never had any history of seizure. Today, patient has intermittent tremor of the arms. There is no any focal weakness, no any focal tremor. The patient has been ambulatory at home, but here she is unable to ambulate except with the physical therapy. ALLERGIES: NONE KNOWN. SOCIAL HISTORY: She does not smoke or drink. MEDICATIONS: She has been taking multiple medications including Xarelto and carbamazepine 200 mg 3 times a day. REVIEW OF SYSTEMS: In general, 12 steps noncontributory. GENERAL PHYSICAL EXAMINATION: VITAL SIGNS: Blood pressure was 120/70, pulse was 110. LUNGS: Clear to auscultation. HEART: Regular sinus rhythm. ABDOMEN: Soft. No organomegaly. NEURO: She is awake. When asking questions, she was barely able to talk. When I told her to speak up because I am deaf, she is able to answer quite clear. She follows commands well. CRANIAL NERVES: Pupils were both equal and reactive. Extraocular movements were full. No facial weakness. Tongue protrudes in the midline. MOTOR: Arms, able to elevate arms and legs against gravity she started having this involuntary motion of both arms lasting for few seconds. While I am examining her, the tremor stopped. There is no bradykinesia. There is no rigidity. She never had this kind of tremors before. There is no gross weakness in the proximal and distal muscles of both upper and lower extremities. The plantar stimulation is down bilaterally. HEAD: Normocephalic. NECK: Supple. Carotid pulsations were present bilaterally. There were no bruits. LABORATORY WORKUP: CBC showed white count the last one was on November 21. Yesterday, CBC was white count 5800 with hemoglobin 11.6, hematocrit 34.4, platelets 139,000. Chemistry: Sodium, potassium, chloride were all normal. BUN 16, creatinine 0.89, estimated GFR greater than 60, calcium 10.5, glucose 126. Liver enzymes are all normal. Cholesterol is , triglycerides 85, LDL cholesterol 47. Toxicology, carbamazepine level 14.22 which is elevated, ranges between 4, 5, and 12. Urine culture negative. Occult blood culture negative. Chest x-ray showed some evidence of pneumonia in the left lower lobe. IMPRESSION: 1. Pneumonia. 2. Hypertension. 3. History of trigeminal neuralgia, for which she has been taking carbamazepine. 4. Intermittent involuntary motion of the arms and legs, etiology unknown, unspecified. RECOMMENDATIONS: Hold the carbamazepine and do a level of carbamazepine tomorrow morning. I have discussed with the family and will request also to continue with physical therapy. Thank you. Job#: [id number]
[2017-11-22] MEDS: ATORVASTATIN 40 MG TAB PO SCH (21:28)
[2017-11-23] VITALS (8 sets, daily range): BP systolic 103–158; BP diastolic 57–76
[2017-11-23] MEDS: ALBUTEROL/IPRATROPIUM 3 ML NEB NEB SCH ×4 (01:40→16:25)
[2017-11-23] MEDS: CEFEPIME HCL 2 GM VIAL IV SCH ×2 (04:55→16:37)
[2017-11-23] MEDS: DILTIAZEM HCL 30 MG TAB PO SCH ×4 (06:00→23:49)
[2017-11-23 07:20] LABS: BASOPHILS % 0.6 % (0.0-1.0); EOSINOPHILS # (AUTO) 0.1 (0.0-0.4); EOSINOPHILS % 1.8 % (0.0-6.0); HEMATOCRIT 29.4 % (34.2-44.1); HEMOGLOBIN 9.8 g/dL (12.0-16.0); LYMPHOCYTES # (AUTO) 1.7 (1.0-3.2); LYMPHOCYTES % 33.1 % (18.0-39.1); MEAN CORPUSCULAR HGB CONC 33.3 g/dL (31-35); MEAN CORPUSCULAR VOLUME 89.9 fL (81-99); MONOCYTES # (AUTO) 0.4 (0.2-0.8); MONOCYTES % 7.5 % (4.4-11.3); NEUTROPHILS # (AUTO) 2.9 (2.1-6.9); NEUTROPHILS % 56.6 % (38.7-80.0); PLATELET COUNT 126 x10e3/uL (140-360); RED BLOOD COUNT 3.27 x10e6/uL (3.6-5.1); RED CELL DISTRIBUTION WIDTH 12.4 % (11.7-14.4)
[2017-11-23 07:30] LABS: ALBUMIN 3.1 g/dL (3.5-5.0); ANION GAP 8.5 mmol/L (8-16); CALCIUM 9.9 mg/dL (8.4-10.2); CREATININE, SERUM 0.94 mg/dL (0.57-1.11); POTASSIUM 4.5 mmol/L (3.5-5.1)
[2017-11-23] MEDS: ASPIRIN 81 MG ENTERIC COATED PO SCH (08:26)
[2017-11-23] MEDS: AZITHROMYCIN 500MG/NS 250 ML 250 ML IV SCH (08:26)
[2017-11-23] MEDS: FAMOTIDINE 20 MG TAB PO SCH ×2 (08:26→16:37)
[2017-11-23] MEDS: PANTOPRAZOLE SOD 40 MG TABEC PO SCH (08:26)
[2017-11-23] MEDS: RIVAROXABAN 15 MG TABLET PO SCH (08:26)
[2017-11-23] MEDS: AMIODARONE HCL 200 MG TAB PO SCH (08:26)
[2017-11-23] MEDS: ISOSORBIDE MONONITRATE 30 MG TAB CR PO SCH (08:26)
[2017-11-23] MEDS: ACETAMINOPHEN 325 MG TAB PO PRN (08:48)
[2017-11-23] MEDS: ATORVASTATIN 40 MG TAB PO SCH (23:48)
[2017-11-24] VITALS: BP 132/78
[2017-11-24] MEDS: ALBUTEROL/IPRATROPIUM 3 ML NEB NEB SCH (00:20)
[2017-11-24 04:00] VITALS: BP 154/92
[2017-11-24] MEDS: CEFEPIME HCL 2 GM VIAL IV SCH (04:20)
[2017-11-24] MEDS: DILTIAZEM HCL 30 MG TAB PO SCH (05:46)
[2017-11-24 07:57] VITALS: BP 115/63
--- NOTE | 2017-11-24 13:12 | Discharge Summary ---
FINAL DISCHARGE DIAGNOSIS: 1. Atypical chest pain. 2. Atrial fibrillation at baseline, rate controlled. 3. Underlying tremors secondary to carbamazepine, for unknown etiology why she is taking that medication. 4. Acute kidney injury, resolved. 5. Community-acquired pneumonia. 6. Medically debilitated. 7. Generalized weakness. CONSULTANTS: We had Cardiology and Neurology. VITAL SIGNS: Temperature is 97, pulse 92, respiratory rate is 18, blood pressure 115/63, pulse ox 99% on room air. LAB FINDINGS: Show sodium 135, potassium 4.5, chloride 104, bicarb 27, BUN of 16, creatinine is 0.9, glucose 88. White count 5, hemoglobin 9.8, hematocrit is 29, platelets 126. PT is 15, PTT 29, INR 1.3. LFTs were normal. Urinalysis was negative. MICROBIOLOGY: Blood cultures negative. Urine cultures negative. Influenza was negative. Carbamazepine level was elevated at 14, repeat was 11.6. IMAGING STUDIES: She had chest x-ray on admission, was evidence of a left lower lobe pneumonia. CT brain found to be no acute findings. MRI of her brain showed no acute intracranial abnormalities. Carotid ultrasound showed negative findings bilaterally. A 2D echo showed an EF of 50% to 55%. HOSPITAL COURSE: This is an 82-year-old female who came into the ED with complaints of chest pain, also underlying AFib with RVR and x-ray consistent with pneumonia. Patient was admitted, and Cardiology was consulted. It was felt that the patient's chest pain was atypical in nature. A 2D echo showed EF of 50% to 55%. In relation to her AFib, medications were adjusted accordingly with much better heart rate prior to discharge. Patient will continue with same regimen and continue with oral Xarelto for anticoagulation. Patient was treated with IV antibiotics for underlying community-acquired pneumonia. Urine blood cultures were negative. She will be discharged on oral Augmentin. In relation to her acute kidney injury, it all resolved after IV fluids, felt to be from dehydration. While in the hospital, she did develop some tremors, in which Neurology was consulted. Patient was taking carbamazepine for unknown etiology. Carbamazepine level was elevated at 14. Per Neurology, they recommend holding the carbamazepine at this time due to the fact that we do not know what the real reason why she is on that medication. Patient's family verbalized understanding and will hold that medication. Since holding the medication here, her carbamazepine level was back to normal with no more tremors on examination. Patient had PT and OT and was severely debilitated, requiring correction facility placement. Patient will be going to a correction facility. On the day of discharge, vital signs stable, labs reviewed and stable. Patient seen and evaluated and examined thoroughly on the day of discharge with no other complaints. Patient verbalized understanding and agreed with the plan of care, to follow up accordingly as an outpatient with her primary care physician as well as with Neurology as an outpatient. DISCHARGE MEDICATIONS: See med reconciliation form. Will also add Augmentin 875 mg 1 tab p.o. b.i.d. for 7 days. DISPOSITION: To a correction facility. CONDITION: Stable. DIET: Heart-healthy. FOLLOWUP: With her primary care physician in 1 week, Neurology in 1 week. In the event of any worsening symptoms, patient advised to come back to the ED for further evaluation. Discharge summary took greater than 35 minutes. ANIKA HUI MD Job#: [id number] EV
== END 2017-11-24 11:43 | DRG 194 ==
LOC: ER 22:22 → MED/SURG 11-18 02:31
PROVIDERS: ADMIT Internal Medicine; ATTEND Internal Medicine
PROC: 02HV33Z Insertion of Infusion Device into Superior Vena Cava, Percutaneous Approach (ICD-10-PCS; principal; 2017-11-22)
DX: J18.9 Pneumonia, unspecified organism (principal); S37.009A Unspecified injury of unspecified kidney, initial encounter; N17.9 Acute kidney failure, unspecified; I48.2 Chronic atrial fibrillation; E86.0 Dehydration; I11.0 Hypertensive heart disease with heart failure; I50.9 Heart failure, unspecified; G50.0 Trigeminal neuralgia; I25.10 Atherosclerotic heart disease of native coronary artery without angina pectoris; R25.1 Tremor, unspecified; Z86.718 Personal history of other venous thrombosis and embolism; Z79.01 Long term (current) use of anticoagulants; T42.1X5A Adverse effect of iminostilbenes, initial encounter; R07.89 Other chest pain
CPT/HCPCS: 36415; 36569; 51700; 70450; 70551; 71045; 80048; 80053; 80061; 80156; 81001; 82550; 82553; 82948; 83605; 83735; 83880; 84443; 84484; 85025; 85610; 85730; 87040; 87086; 87400; 93005; 93306; 93880; 94640; 97139; 99284; J0456; J0692; J2405; J3370; J7030

== ENCOUNTER 2018-02-06 10:46 | Inpatient (IN) | payer MEDICARE, OTHER ==
[~2018-02-06] VITALS: Ht 149.9 cm; Wt 65.8 kg
[~2018-02-06 10:46] MED LIST changes: +AMIODARONE HCL200 MG PO; +ATORVASTATIN CA20 MG PO; +DILTIAZEM HCL60 MG PO; +NITROGLYCERIN0.4 MG SL; +TIZANIDINE HCL4 MG PO; +TRAZODONE HCL50 MG PO; +XARELTO10 MG PO
--- OUTSIDE RECORDS SUMMARY | 2018-02-06 10:49 | XMS REPORT | Continuity of Care Document ---
Author Author [facility] Organization [facility] Address [address] [place] [address] Phone Unavailable Care Team Providers Care Football Scout Name Role Phone DENG SAENZ MD PCP Insurance Providers Guarantor Sunny Morales Address [address] [place] [address] [place] [address] Payer [employer]bob white Policy Number [id number] Subscriber's Name Morales,Sunny Relationship 18 Self / Same As Patient Effective Date 17 Payer [facility] [email or web address] [facility] Policy Number [id number] Subscriber's Name Morales,Sunny Relationship 18 Self / Same As Patient Effective Date 17 Advance Directives Directive Response Recorded Date/Time Does the patient have an advance directive? No 11/18/17 3:21am If yes, is advance directive on file with [facility]? No 11/18/17 3:21am If not on file with [facility] will patient provide a copy? Yes 11/18/17 3:21am Do you have a Directive to Physician? No 11/18/17 2:30am Do you have a Medical Power of Placement Specialist? No 11/18/17 2:30am Do you have an out of hospital Do Not Resuscitate Order? No 11/18/17 2:30am Do you have any special needs we should be aware of? No 11/18/17 2:30am Do you have a support person here with you today? Yes 11/18/17 2:30am Did patient receive Notice of Privacy Practices? Yes 11/18/17 2:30am Did patient receive patient rights and responsibilities? Yes 11/18/17 2:30am Problems Medical Problem Onset Date Status Atrial fibrillation Unknown Chest pain 06/25/2014 Acute Lung mass 11/18/2014 Acute Near syncope 11/18/2014 Acute Pneumonia Unknown Strain of muscle, fascia and tendon of lower back, initial encounter Unknown Acute UTI (urinary tract infection) Unknown Acute Vomiting Unknown Acute Medications Current Home Medications Medication Dose Units Route Directions Days Qty Instructions Start Date Amiodarone Hcl 200 Mg Tablet 200 Mg Oral Daily Atorvastatin Calcium 20 Mg Tablet 40 Mg Oral Bedtime 30 Tab Diltiazem Hcl 60 Mg Tablet 60 Mg Oral Before Meals And At Bedtime 30 Tab Furosemide (Lasix) 40 Mg Tablet 80 Mg Oral Daily 30 Tab Isosorbide Mononitrate (Isosorbide Mononitrate Er) 30 Mg Tab.er.24h 60 Mg Oral Daily 30 Tab Nitroglycerin 0.4 Mg Tab.subl 0.4 Mg Sublingual Every 5 Minutes Omeprazole 20 Mg Capsule.dr 20 Mg Oral Daily Rivaroxaban (Xarelto) 10 Mg Tablet 15 Mg Oral Daily Tizanidine Hcl 4 Mg Tablet 2 Mg Oral Every 12 Hours as needed for Pain Trazodone Hcl 50 Mg Tablet 50 Mg Oral Bedtime as needed for Sleep 30 Tab Past Home Medications Medication Directions Ordered Status Atorvastatin Calcium 10 Mg Tablet, 40 Mg Oral Daily Discontinued Carbamazepine 200 Mg Tablet, 200 Mg Oral Three Times A Day Discontinued Clopidogrel Bisulfate (Clopidogrel) 75 Mg Tablet, 75 Mg Oral Daily Discontinued Levofloxacin (Levaquin) 500 Mg Tablet, 500 Mg Oral Daily 11/20/14 Discontinued Meclizine Hcl 12.5 Mg Tablet, 12.5 Mg Oral Daily as needed for Dizziness Discontinued Metoprolol Tartrate 50 Mg Tablet, 50 Mg Oral Every Morning Discontinued Metoprolol Tartrate 100 Mg Tablet, 100 Mg Oral Every Evening Discontinued Risedronate Sodium (Atelvia) 35 Mg Tablet.dr, 35 Mg Oral Weekly Discontinued Social History Social History Problem Response Recorded Date/Time Onset Date Status Hx Psychiatric Problems No 11/18/2017 3:21am Not Applicable Not Applicable Hx Eating Disorder No 11/18/2017 3:21am Not Applicable Not Applicable Hx Depression No 11/18/2017 3:21am Not Applicable Not Applicable Hx Alcohol Use No 11/18/2017 3:21am Not Applicable Not Applicable Hx Substance Use Treatment No 11/18/2017 3:21am Not Applicable Not Applicable Hx Physical Abuse No 11/18/2017 3:21am Not Applicable Not Applicable Hospital Discharge Instructions No hospital discharge instruction information available. Plan of Care Discharge Date 11/24/17 11:43am Disposition TRANSFER HALF-WAY Prescriptions See Medication Section Additional Instructions/Education FOLLOW UP WITH NEUROLOGY IN ONE WEEK. FOLLOW UP WITH PCP IN ONE WEEK. Functional Status Query Response Date Recorded FUNCTIONAL STATUS . November 22, 2017 12:38pm Assistive Devices Straight Cane November 18, 2017 3:40am Ambulation Ability Independent November 18, 2017 3:40am Toileting Ability Moderate Assistance November 23, 2017 6:33pm Allergies, Adverse Reactions, Alerts No known allergies. Immunizations No immunization information available. Vital Signs Acute Vital Signs Vital Response Date/Time Temperature (Fahrenheit) 97.0 degrees F (97.6 - 99.5) 11/24/2017 7:57am Pulse Pulse Rate (adult) 92 bpm (60 - 90) 11/24/2017 7:57am Respiratory Rate 18 bpm (12 - 24) 11/24/2017 7:57am Blood Pressure 115/63 mm Hg 11/24/2017 7:57am Height 4 ft 11 in 11/17/2017 10:39pm Weight 152.06 lb 11/21/2017 2:00pm Body Mass Index 30.7 kg/m^2 11/21/2017 2:00pm Results Laboratory Results Test Name Result Units Flags Reference Collection Date/Time Result Date/ Time Comments White Blood Count 5.07 x10e3/uL 4.8-10.8 11/23/2017 6:28am 11/23/2017 7 :33am Red Blood Count 3.27 x10e6/uL L 3.6-5.1 11/23/2017 6:11/23/2017 7: 33am Hemoglobin 9.8 g/dL L 12.0-16.0 11/23/2017 6:11/23/2017 7:33am Hematocrit 29.4 % L 34.2-44.1 11/23/2017 6:11/23/2017 7:33am Mean Corpuscular Volume 89.9 fL 81-99 11/23/2017 6:11/23/2017 7: 33am Mean Corpuscular Hemoglobin 30.0 pg 28-32 11/23/2017 6:11/23/2017 7:33am Mean Corpuscular Hemoglobin Concent 33.3 g/dL 31-35 11/23/2017 6:11/23/2017 7:33am Red Cell Distribution Width 12.4 % 11.7-14.4 11/23/2017 6:2017 7:33am Platelet Count 126 x10e3/uL L 140-360 11/23/2017 6:11/23/2017 7: 33am Neutrophils (%) (Auto) 56.6 % 38.7-80.0 11/23/2017 6:11/23/2017 7: 33am Lymphocytes (%) (Auto) 33.1 % 18.0-39.1 11/23/2017 6:11/23/2017 7: 33am Monocytes (%) (Auto) 7.5 % 4.4-11.3 11/23/2017 6:11/23/2017 7: 33am Eosinophils (%) (Auto) 1.8 % 0.0-6.0 11/23/2017 6:11/23/2017 7: 33am Basophils (%) (Auto) 0.6 % 0.0-1.0 11/23/2017 6:11/23/2017 7:33am IM GRANULOCYTES % 0.4 % 0.0-1.0 11/23/2017 6:11/23/2017 7:33am Neutrophils # (Auto) 2.9 2.1-6.9 11/23/2017 6:11/23/2017 7:33am Lymphocytes # (Auto) 1.7 1.0-3.2 11/23/2017 6:28am 11/23/2017 7:33am Monocytes # (Auto) 0.4 0.2-0.8 11/23/2017 6:28am 11/23/2017 7:33am Eosinophils # (Auto) 0.1 0.0-0.4 11/23/2017 6:28am 11/23/2017 7:33am Basophils # (Auto) 0.0 0.0-0.1 11/23/2017 6:28am 11/23/2017 7:33am Absolute Immature Granulocyte (auto 0.02 x10e3/uL 0-0.1 11/23/2017 6: 28am 11/23/2017 7:33am Prothrombin Time 15.5 seconds H 11.9-14.5 11/17/2017 10:55pm 11/17/2017 11:22pm Prothromb Time International Ratio 1.33 11/17/2017 10:55pm 2017 11:22pm Oral Anticoagulant Therapy INR Values: 1. Low Intensity Therapy 1.5 - 2.0 2. Moderate Intensity Therapy 2.0 - 3.0 3. High Intensity Therapy(1) 2.5 - 3.5 4. High Intensity Therapy(2) 3.0 - 4.0 5. Panic Value INR > 5.0 Activated Partial Thromboplast Time 29.0 seconds 23.8-35.5 11/17/2017 10 :55pm 11/17/2017 11:22pm Urine Color YELLOW YELLOW 11/18/2017 1:00am 11/18/2017 1:03am Urine Clarity CLEAR CLEAR 11/18/2017 1:00am 11/18/2017 1:03am Urine Specific [place] 1.015 1.010-1.025 11/18/2017 1:00am 2017 1:03am Urine pH 5 5 - 7 11/18/2017 1:00am 11/18/2017 1:03am Urine Leukocyte Esterase NEGATIVE NEGATIVE 11/18/2017 1:00am 2017 1:03am Urine Nitrite NEGATIVE NEGATIVE 11/18/2017 1:00am 11/18/2017 1:03am Urine Protein NEGATIVE NEGATIVE 11/18/2017 1:00am 11/18/2017 1:03am Urine Glucose (UA) NEGATIVE NEGATIVE 11/18/2017 1:00am 11/18/2017 1: 03am Urine Ketones NEGATIVE NEGATIVE 11/18/2017 1:00am 11/18/2017 1:03am Urine Urobilinogen 0.2 mg/dL 0.2 - 1 11/18/2017 1:00am 11/18/2017 1: 03am Urine Bilirubin NEGATIVE NEGATIVE 11/18/2017 1:00am 11/18/2017 1: 03am Urine Blood 1+ H NEGATIVE 11/18/2017 1:00am 11/18/2017 1:03am Urine WBC 0-5 /HPF 0-5 11/18/2017 1:00am 11/18/2017 1:10am Urine RBC 0-5 /HPF 0-5 11/18/2017 1:00am 11/18/2017 1:10am Urine Bacteria RARE /HPF NONE 11/18/2017 1:00am 11/18/2017 1:10am Urine Epithelial Cells RARE /LPF NONE 11/18/2017 1:00am 11/18/2017 1: 10am Sodium Level 135 mmol/L L 136-145 11/23/2017 6:28am 11/23/2017 7:31am Potassium Level 4.5 mmol/L 3.5-5.1 11/23/2017 6:28am 11/23/2017 7:31am Chloride Level 104 mmol/L 98-107 11/23/2017 6:28am 11/23/2017 7:31am Influenza Virus Types A,B Antigen NEGATIVE NEGATIVE 11/17/2017 10: 55pm 11/17/2017 11:44pm Carbon Dioxide Level 27 mmol/L 22-11/23/2017 6:28am 11/23/2017 7: 31am Anion Gap 8.5 mmol/L 8-16 11/23/2017 6:28am 11/23/2017 7:31am Blood Urea Nitrogen 16 mg/dL 7-11/23/2017 6:28am 11/23/2017 7:31am Creatinine 0.94 mg/dL 0.57-1.11 11/23/2017 6:28am 11/23/2017 7:31am BUN/Creatinine Ratio 17 6-25 11/23/2017 6:28am 11/23/2017 7:31am Estimat Glomerular Filtration Rate 57 ML/MIN L 60- 11/23/2017 6:2809/2017 7:31am Ranges were taken from the National Kidney Disease Education Program and the National Kid[employer] Foundation literature. Reference ranges: 60 or greater: Normal 16-59 (for 3 consecutive months): Chronic kidney disease 15 or less: Kidney failure Glucose Level 88 mg/dL 74-118 11/23/2017 6:28am 11/23/2017 7:31am Calcium Level 9.9 mg/dL 8.4-10.2 11/23/2017 6:2811/23/2017 7:31am Bedside Glucose 76 mg/dL 70-120 11/20/2017 5:57am 11/20/2017 6:10am Meter ID: [id number] Lactic Acid Level 9.5 MG/DL 4.5-19.8 11/17/2017 10:55pm 11/17/2017 11: 27pm Magnesium Level 2.1 MG/DL 1.3-2.1 11/17/2017 10:55pm 11/17/2017 11: 22pm Total Bilirubin 0.3 mg/dL 0.2-1.2 11/23/2017 6:2811/23/2017 7:31am Aspartate Amino Transf (AST/SGOT) 12 IU/L 5-34 11/23/2017 6:2017 7:31am Alanine Aminotransferase (ALT/SGPT) 14 IU/L 0-55 11/23/2017 6:2809/2017 7:31am Total Protein 6.1 g/dL L 6.5-8.1 11/23/2017 6:11/23/2017 7:31am Albumin 3.1 g/dL L 3.5-5.0 11/23/2017 6:11/23/2017 7:31am Globulin 3.0 g/dL 2.3-3.5 11/23/2017 6:11/23/2017 7:31am Albumin/Globulin Ratio 1.0 0.8-2.0 11/23/2017 6:11/23/2017 7: 31am Alkaline Phosphatase 73 IU/L 40-150 11/23/2017 6:2811/23/2017 7: 31am Triglycerides Level 85 MG/DL 0-149 11/19/2017 9:00am 11/19/2017 10: 06am Cholesterol Level 100 MD/DL 0-199 11/19/2017 9:00am 11/19/2017 10:06am Less than 200 mg/dL Low Risk 201 - 239 mg/dL Borderline Risk 240 mg/dl and greater High Risk LDL Cholesterol 47 MG/DL L 60-130 11/19/2017 9:00am 11/19/2017 10:06am HDL Cholesterol 36 MG/DL L 40-60 11/19/2017 9:00am 11/19/2017 10:06am Cholesterol/HDL Ratio 2.8 L 3.0-3.6 11/19/2017 9:00am 11/19/2017 10: 06am B-Type Natriuretic Peptide 151.7 pg/mL H 0-100 11/17/2017 10:55pm 2017 11:42pm Creatine Kinase 32 IU/L 29-168 11/19/2017 11:25am 11/19/2017 11:47am Creatine Kinase MB 0.40 ng/mL 0-5.0 11/19/2017 11:25am 11/19/2017 12: 06pm Troponin I < 0.001 ng/mL 0-0.300 11/19/2017 11:25am 11/19/2017 12:06pm Thyroid Stimulating Hormone (TSH) 2.400 uIU/mL 0.350-4.940 11/19/2017 9: 00am 11/19/2017 12:06pm Carbamazepine (Tegretol) Level 11.61 ug/mL 4.0-12.0 11/23/2017 6:28am 11/23/2017 8:07am Microbiology Results Procedure Source Organism/Result Collection Date/Time Result Date/Time Result Status Blood Culture Blood NO GROWTH AFTER 5 DAYS, FINAL REPORT 11/17/2017 10: 55pm 11/22/2017 11:12pm Final Procedures Procedure Status Date Provider(s) Computed tomography of brain without radiopaque contrast Active 11/21/17 JOHN BROWER MD Magnetic resonance imaging of brain without contrast Active 11/21/17 ANIKA HUI MD Encounters Encounter Location Arrival/Admit Date Discharge/Depart Date Attending Provider Discharged Inpatient [facility] 11/18/17 2:31am 11/24/17 11:43am ANIKA HUI MD Departed Emergency Room [facility] 09/21/17 11:09pm 09/22 1:34am VAISHNAVI URIAS MD
[2018-02-06] MEDS ORDERED: ASPIRIN 81 MG CHEW TAB PO ONE (11:15)
--- NOTE | 2018-02-06 11:53 | Diagnostic Imaging Report ---
PROCEDURE: A single AP view of the chest. COMPARISON: Patients [facility], DX, CHEST XRAY LINE PLACEMENT, 11/22/2017, 15:41. INDICATIONS: CHEST PAIN TODAY FINDINGS: See impression. IMPRESSION: 1. enlarged cardiac silhouette with central pulmonary venous congestion, bilateral interstitial edema, left pleural effusion likely associated atelectasis. Findings likely represent decompensated CHF. Yayo Lizarraga M.D. Dictated by: Yayo Lizarraga M.D. on 02/06/2018 at 11:55 Electronically approved by: Yayo Lizarraga M.D. on 02/06/2018 at 11:55
[2018-02-06 12:42] LABS: BASOPHILS % 0.3 % (0.0-1.0); EOSINOPHILS % 0.5 % (0.0-6.0); HEMATOCRIT 36.5 % (34.2-44.1); LYMPHOCYTES # (AUTO) 1.5 (1.0-3.2); LYMPHOCYTES % 19.7 % (18.0-39.1); MEAN CORPUSCULAR HEMOGLOBIN 30.5 pg (28-32); MEAN CORPUSCULAR HGB CONC 32.9 g/dL (31-35); MEAN CORPUSCULAR VOLUME 92.6 fL (81-99); MONOCYTES # (AUTO) 0.6 (0.2-0.8); MONOCYTES % 7.8 % (4.4-11.3); NEUTROPHILS # (AUTO) 5.6 (2.1-6.9); NEUTROPHILS % 71.3 % (38.7-80.0); PLATELET COUNT 129 x10e3/uL (140-360); RED BLOOD COUNT 3.94 x10e6/uL (3.6-5.1); RED CELL DISTRIBUTION WIDTH 14.6 % (11.7-14.4)
[2018-02-06 12:55] LABS: INR 1.19; PARTIAL THROMBOPLASTIN TIME 26.9 seconds (23.8-35.5); PROTHROMBIN TIME 14.2 seconds (11.9-14.5)
[2018-02-06 13:06] LABS: ALANINE AMINOTRANSFERASE 50 IU/L (0-55); ALBUMIN 3.6 g/dL (3.5-5.0); ALBUMIN/GLOBULIN RATIO 1.3 (0.8-2.0); ALKALINE PHOSPHATASE 84 IU/L (40-150); ANION GAP 9.5 mmol/L (8-16); BLOOD UREA NITROGEN 15 mg/dL (7-26); BUN/CREATININE RATIO 16 (6-25); CALCIUM 9.5 mg/dL (8.4-10.2); CARBON DIOXIDE 29 mmol/L (22-29); CHLORIDE 107 mmol/L (98-107); CREATINE KINASE 24 IU/L (29-168); CREATININE, SERUM 0.96 mg/dL (0.57-1.11); EST GLOMERULAR FILTRATION RATE 56 ML/MIN (60-); GLUCOSE 102 mg/dL (74-118); POTASSIUM 3.5 mmol/L (3.5-5.1); SODIUM 142 mmol/L (136-145)
[2018-02-06] MEDS ORDERED: MONTELUKAST SOD10 MG PO (14:28)
[2018-02-06] MEDS ORDERED: LISINOPRIL2.5 MG PO (14:28)
[2018-02-06] MEDS ORDERED: LORATADINE10 MG PO (14:28)
[2018-02-06] MEDS ORDERED: MELOXICAM7.5 MG PO (14:28)
[2018-02-06] MEDS ORDERED: FUROSEMIDE INJ 10 MG/ML 4 ML VIAL IV ONE (17:45)
--- NOTE | 2018-02-06 19:05 | Diagnostic Imaging Report ---
PROCEDURE: CT scan of the chest WITH intravenous contrast, using standard protocol. TECHNIQUE: The chest was scanned utilizing a multidetector helical scanner from the lung apex through the level of the adrenal glands after the IV administration of 100 cc of Isovue 370. Coronal and sagittal multiplanar reformations were obtained. COMPARISON: Patients [facility], CT, CT CHEST W, 11/18/2014, 20:54. INDICATIONS: SHORT OF BREATH FINDINGS: Lines/tubes: None Lungs and Airways: Mild apical pleuroparenchymal scarring. Bilateral interlobular septal thickening. Bilateral lower lobe mild compressive atelectasis, right greater than left. Multiple linear opacities in bilateral lower lobes as well as lateral aspect of the right middle lobe, which may represent subsegmental atelectasis or scarring. Stable linear opacity in the lingula (series 3, image 64), consistent with scarring. Subpleural triangular shaped density in the right diaphragmatic pleura (series 3, image 82, and sagittal image 37), with associated adjacent swirling of vessels and bronchi, suggesting area of round atelectasis. No focal consolidation or pulmonary nodules. Incidental note is made of an azygos lobe. Pleura: Small to moderate bilateral pleural effusions, Heart and mediastinum: Thyroid is unremarkable. Mild cardiomegaly with prominence of the left atrium. Aorta is non-aneurysmal. Main pulmonary artery is normal in caliber, measuring 3.0 cm.. CABG changes. Lymph nodes: Stable, mildly enlarged right lower paratracheal lymph node (series 2, image 46), which measures 1.1 cm in short axis. No other mediastinal or any hilar or axillary adenopathy. Abdomen: Limited contrast-enhanced views of the upper abdomen show no abnormality within the visualized liver, spleen, pancreas, or kidneys. The adrenal glands are unremarkable. Bones: Generalized osteopenia. No aggressive lytic lesion. Stable mild anterior wedging mid to distal thoracic vertebral bodies and kyphosis. Midline sternotomy wires. IMPRESSION: 1. Findings in the lungs likely represent interstitial edema. In the setting of cardiomegaly and bilateral pleural effusions, this likely represents mild decompensated CHF. No consolidation. 2. Bilateral lower lobe compressive atelectasis. A right lower lobe density likely represents an area of round atelectasis. Yayo Lizarraga M.D. Dictated by: Yayo Lizarraga M.D. on 02/06/2018 at 19:07 Electronically approved by: Yayo Lizarraga M.D. on 02/06/2018 at 19:07
[2018-02-06 20:00] VITALS: BP 146/99
[2018-02-06 20:03] LABS: CREATINE KINASE 20 IU/L (29-168)
[2018-02-06] MEDS ORDERED: SODIUM CHLORIDE 0.9% 50ML 50 ML ONE (22:35)
[2018-02-06] MEDS ORDERED: IOPAMIDOL 370 MG/ML 200 ML INFUS..BTL INJ ONE (22:35)
[2018-02-06] MEDS: METOPROLOL TARTRATE INJ 1 MG/ML VIAL IV PRN (23:42)
[2018-02-07] VITALS (7 sets, daily range): BP systolic 103–146; BP diastolic 74–99
[2018-02-07] MEDS: METOPROLOL TARTRATE INJ 1 MG/ML VIAL IV PRN ×3 (04:16→22:15)
[2018-02-07 05:04] LABS: CREATINE KINASE 18 IU/L (29-168)
[2018-02-07] MEDS ORDERED: METHYLPREDNISOLONE SOD SUCC 40 MG/ML VIAL IV SCH (06:15)
[2018-02-07 06:58] LABS: CHOL/HDL RATIO 2.9 (3.0-3.6)
[2018-02-07 07:16] LABS: ANION GAP 13.5 mmol/L (8-16); BLOOD UREA NITROGEN 12 mg/dL (7-26); BUN/CREATININE RATIO 15 (6-25); CALCIUM 9.7 mg/dL (8.4-10.2); CARBON DIOXIDE 23 mmol/L (22-29); CHLORIDE 108 mmol/L (98-107); CREATININE, SERUM 0.82 mg/dL (0.57-1.11); EST GLOMERULAR FILTRATION RATE > 60 ML/MIN (60-); GLUCOSE 89 mg/dL (74-118); POTASSIUM 3.5 mmol/L (3.5-5.1); SODIUM 141 mmol/L (136-145)
[2018-02-07] MEDS ORDERED: POTASSIUM CHLORIDE 20 MEQ TAB CR PO STA (08:06)
[2018-02-07] MEDS ORDERED: RIVAROXABAN 10 MG TABLET PO SCH (09:00)
[2018-02-07] MEDS ORDERED: LORATADINE 10 MG TAB PO SCH (09:00)
[2018-02-07] MEDS ORDERED: MONTELUKAST SODIUM 10 MG TAB PO SCH (09:00)
[2018-02-07] MEDS ORDERED: FUROSEMIDE 40 MG TAB PO SCH (09:00)
[2018-02-07] MEDS: LISINOPRIL 2.5 MG TAB PO SCH (09:07)
[2018-02-07] MEDS: PANTOPRAZOLE SOD 40 MG TABEC PO SCH (09:07)
[2018-02-07] MEDS: AMIODARONE HCL 200 MG TAB PO SCH (09:07)
[2018-02-07] MEDS: ISOSORBIDE MONONITRATE 30 MG TAB CR PO SCH (09:07)
[2018-02-07] MEDS: MELOXICAM 7.5 MG TAB PO SCH (09:07)
[2018-02-07] MEDS: FUROSEMIDE INJ 10 MG/ML 4 ML VIAL IV SCH ×2 (09:07→20:58)
[2018-02-07] MEDS: LORATADINE 10 MG TAB PO SCH (09:07)
--- NOTE | 2018-02-07 09:12 | Consultation ---
DATE OF CONSULTATION: February 06, 2018 CARDIOLOGY CONSULTATION REASON FOR CONSULTATION: CHF and dyspnea. REQUESTING PHYSICIAN: Joseph nurse practitioner in the emergency room. HPI: This is an 82-year-old female with multiple admissions that presented with shortness of breath and chest pressure. According to the patient with the help of an application programmer analyst, she started having bilateral lower extremity edema that was getting worse, shortness of breath and chest tightness that she was brought to the emergency room by family for evaluation. She was recently admitted and discharged in October and then again was at [facility]. She denies any palpitations, any dizziness, any diaphoresis or headache. BNP is 650. Chest x-ray showed pulmonary venous congestion and mild bilateral interstitial edema. CT chest showed findings suggestive of interstitial edema and decompensated CHF. PAST MEDICAL HISTORY: CHF, AFib, hypertension, DVT, PE, muscle spasm, pneumonia, and UTIs. PAST SURGICAL HISTORY: Hernia repair. FAMILY HISTORY: Noncontributory. SOCIAL HISTORY: No smoking. No drinking. She lives at home with family. MEDICATIONS: She was on amiodarone, atorvastatin, Lasix, isosorbide, lisinopril, Claritin, meloxicam, omeprazole, Xarelto, and trazodone. ALLERGIES: NO KNOWN ALLERGIES. REVIEW OF SYSTEMS: Negative except those mentioned above. Positive for shortness of breath. PHYSICAL EXAMINATION GENERAL: She is awake, alert and oriented times 3, but lethargic. VITAL SIGNS: Temperature 98, heart rate 100, blood pressure 121/92, respirations 18, oxygen saturation 98% on 2 liters nasal cannula. HEENT: Mucous membranes moist. NECK: Supple. LUNGS: Bilateral with decreased breath sounds. CARDIOVASCULAR: Irregularly irregular. ABDOMEN: Soft. EXTREMITIES: Bilateral lower with 2 to 3+ pitting edema. NEUROLOGIC: Intact. LABS: Sodium 141, potassium 3.5, chloride 108, CO2 23, BUN 12, creatinine 0.82. Glucose 89. White blood cells 7.78, hemoglobin 12.0, hematocrit 36.5, platelets 129. PT 14.2, PTT 26.9, INR 1.19. IMPRESSION 1. Congestive heart failure exacerbation. 2. Atrial fibrillation. 3. Hypertension. 4. History of deep vein thrombosis and pulmonary embolism. ASSESSMENT AND PLAN: She recently had a cardiac stress test at [facility] with no ischemia. She had a recent echocardiogram with EF 50% to 55%. Will go ahead and continue diuretic, beta enio and LAURA inhibitors. Will put her on 1.5 L fluid restriction, low salt diet. Thank you for this consultation. Dictated by Dagoberto Argueta NP. Job#: [id number] [facility]
[2018-02-07 12:24] LABS: CREATINE KINASE 18 IU/L (29-168)
[2018-02-07] MEDS: MONTELUKAST SODIUM 10 MG TAB PO SCH (20:58)
[2018-02-07] MEDS: METHYLPREDNISOLONE SOD SUCC 40 MG/ML VIAL IV SCH (20:58)
[2018-02-07] MEDS ORDERED: ATORVASTATIN 20 MG TAB PO SCH (21:00)
[2018-02-07] MEDS: TRAZODONE HCL 50 MG TAB PO PRN (22:15)
[2018-02-08] VITALS (8 sets, daily range): BP systolic 87–114; BP diastolic 56–80
--- NOTE | 2018-02-08 07:15 | History and Physical ---
TIME: 6 a.m. CHIEF COMPLAINT: Shortness of breath. HISTORY OF PRESENT ILLNESS: This is an 82-year-old woman with a history of atrial fibrillation and heart disease, now developing worsening shortness of breath. The patient recently had acute bronchitis and had been admitted to [facility] recently for shortness of breath and chest discomfort. She recently had cardiac enzymes at [facility] to rule out acute coronary syndrome. She has followed up with Dr. Marrero in the office as well. Now, shortness of breath persists prompting her visit to the hospital. She denies any real chest pain. Denies any dizziness. She was admitted for further evaluation and management. PAST MEDICAL HISTORY: Hypertension, pneumonia, heart disease, thrombosis, E. coli urinary tract infection, left-sided pneumonia, acute kidney injury, thrombocytopenia, GERD, osteoporosis, coronary artery disease, status post coronary artery bypass grafting, left lower extremity cellulitis, mild tricuspid regurgitation, mild to moderate mitral regurgitation, atrial fibrillation, mild depression, ambulatory dysfunction, bilateral leg edema. PAST SURGICAL HISTORY: Coronary artery bypass grafting in 2012, thyroidectomy in 2004, thrombosis surgery, cholecystectomy, bilateral tubal ligation, thyroidectomy, EGD/colonoscopy. ALLERGIES: PER ELECTRONIC MEDICAL RECORD. FAMILY HISTORY: Mother . She had asthma. Father . SOCIAL HISTORY: Patient is . She lives with her son. She has 8 children. No alcohol, illicits or cigarettes. MEDICATIONS: Per electronic medical record. REVIEW OF SYSTEMS: Denies any chest pain. Denies any chest pain. PHYSICAL EXAMINATION VITAL SIGNS: Have been reviewed. GENERAL: A tired-appearing woman resting in bed. HEENT: Anicteric. Pupils respond to light. No oral lesions. CARDIOVASCULAR: Normal S1 and S2. LUNGS: She has reduced breath sounds. ABDOMEN: Soft, nontender and nondistended. EXTREMITIES: She has trace to 1+ leg edema bilaterally. SKIN: Dry. PSYCHIATRIC: Flat affect. NEUROLOGICAL: Alert and oriented times 3. Moving all extremities well. LABS: Reviewed. MEDICATIONS: Reviewed. ASSESSMENT AND PLAN: This is an 82-year-old woman with: 1. Pulmonary edema with left-sided pleural effusion: Will diurese the patient and obtain 2-D echocardiogram. Monitor I's and O's. Will also treat the patient with Solu-Medrol and montelukast and loratadine. 2. Bilateral pleural effusions on computerized tomography imaging: Diurese the patient as noted above. 3. Coronary artery disease with history of coronary artery bypass grafting recently: Ruled out acute coronary syndrome at [facility]. Serial cardiac enzymes were negative. Will follow up remaining serial enzymes. Will obtain a lipid panel. 4. Bilateral leg edema: Diurese the patient. 5. Acute kidney injury: Follow closely and await for improvement. 6. Thrombocytopenia: Mild and chronic. 7. Atrial fibrillation: Continue atrioventricular blocking agents. Will also continue amiodarone. 8. Chronic bronchitis: Will treat the patient with steroids, loratadine, nebs, as well as Singulair. 9. Prophylaxis: Will use proton pump inhibitor while the patient is on anticoagulation. , cardiology consultation, and echocardiogram. Follow up diuresis. Job#: [id number] NALDO
--- NOTE | 2018-02-08 07:18 | History and Physical ---
ADDENDUM The patient also has acute exacerbation diastolic congestive heart failure. Diuresis. Atrial fibrillation with rapid ventricular response: Heart rate was elevated on admission. Will use AV blocking agents. Job#: [id number] NALDO
[2018-02-08] MEDS ORDERED: ENOXAPARIN SODIUM INJ 100 MG/ML SYR SC SCH (08:15)
[2018-02-08] MEDS: PANTOPRAZOLE SOD 40 MG TABEC PO SCH (08:50)
[2018-02-08] MEDS: AMIODARONE HCL 200 MG TAB PO SCH (08:50)
[2018-02-08] MEDS: METHYLPREDNISOLONE SOD SUCC 40 MG/ML VIAL IV SCH ×2 (08:50→21:16)
[2018-02-08] MEDS: FUROSEMIDE INJ 10 MG/ML 4 ML VIAL IV SCH ×2 (08:50→21:16)
[2018-02-08] MEDS: ENOXAPARIN INJ 80 MG/0.8 ML SYR SC SCH ×2 (08:50→21:16)
[2018-02-08] MEDS: LORATADINE 10 MG TAB PO SCH (08:50)
[2018-02-08] MEDS: MELOXICAM 7.5 MG TAB PO SCH (08:50)
[2018-02-08] MEDS: ISOSORBIDE MONONITRATE 30 MG TAB CR PO SCH (09:00)
[2018-02-08] MEDS: LISINOPRIL 2.5 MG TAB PO SCH (09:00)
[2018-02-08] MEDS: METOPROLOL TARTRATE INJ 1 MG/ML VIAL IV PRN ×3 (09:11→15:39)
[2018-02-08] MEDS: MONTELUKAST SODIUM 10 MG TAB PO SCH (21:16)
[2018-02-08] MEDS: ATORVASTATIN 40 MG TAB PO SCH (21:16)
[2018-02-09] VITALS (16 sets, daily range): BP systolic 97–152; BP diastolic 63–90
--- NOTE | 2018-02-09 06:16 | Progress Note ---
DATE: February 08, 2018 TIME: 7 a.m. OVERNIGHT: Continues to have some rapid heart rate. REVIEW OF SYSTEMS: Denies any dizziness. PHYSICAL EXAMINATION VITAL SIGNS: Reviewed. GENERAL: A tired-appearing woman resting in bed. HEENT: Anicteric. CARDIOVASCULAR: Normal S1 and S2. LUNGS: Moderate breath sounds. ABDOMEN: Soft, nontender and nondistended. EXTREMITIES: Shows some edema. SKIN: Dry. PSYCHIATRIC: Normal affect. NEUROLOGICAL: Alert and oriented times 3. LABS: Reviewed. MEDICATIONS: Reviewed. ASSESSMENT: An 82-year-old woman with: 1. Pulmonary edema with left-sided pleural effusion. 2. Bilateral pleural effusion. 3. Coronary artery disease with history of coronary artery bypass grafting. 4. Bilateral leg edema. 5. Acute kidney injury. 6. Thrombocytopenia. 7. Atrial fibrillation with rapid ventricular response. 8. Chronic bronchitis. PLAN 1. Continue heart rate control. 2. Continue supportive care. 3. Continue oxygen support. 4. Continue diuresis. 5. Continue Lovenox treatment dose. 6. Continue with statin. 7. Continue antihistamine and steroids. 8. Follow I's and O's. Job#: [id number] NALDO
[2018-02-09] MEDS: METOPROLOL TARTRATE INJ 1 MG/ML VIAL IV PRN ×2 (06:19)
--- NOTE | 2018-02-09 06:21 | Progress Note ---
DATE: February 09, 2018 TIME: 5:56 a.m. OVERNIGHT: No chest pain. REVIEW OF SYSTEMS: Denies any dizziness. PHYSICAL EXAMINATION VITAL SIGNS: Reviewed. GENERAL: A tired-appearing woman resting in bed. HEENT: Anicteric. CARDIOVASCULAR: Normal S1 and S2. Rapid heart rate. LUNGS: Moderate breath sounds reduced at the bases. ABDOMEN: Soft, nontender and nondistended. EXTREMITIES: Trace edema. SKIN: Dry. PSYCHIATRIC: Normal affect. LABS: Reviewed. MEDICATIONS: Reviewed. ASSESSMENT: This is an 82-year-old woman with: 1. Pulmonary edema with bilateral pleural effusion. 2. Coronary artery disease with history of coronary artery bypass grafting. 3. Atrial fibrillation with rapid ventricular response. 4. Bilateral leg edema. 5. Acute kidney injury. 6. Thrombocytopenia. 7. Chronic bronchitis. 8. Acute exacerbation of diastolic congestive heart failure. PLAN 1. Procedure planned for today for ablation of atrial fibrillation. 2. Continue heart rate control with medication regimen. 3. Continue anticoagulate of Lovenox q.12 h. 4. Continue Lasix 40 mg IV q.12 h. Follow I's and O's. 5. Continue antihistamine. 6. Continue amiodarone. 7. Continue other medication regimen. 8. Renal function has improved. 9. LDL 45 and triglycerides 74. 10. Follow up EP management today. Job#: [id number] NALDO
[2018-02-09 07:04] LABS: BASOPHILS % 0.1 % (0.0-1.0); HEMATOCRIT 36.2 % (34.2-44.1); LYMPHOCYTES # (AUTO) 0.5 (1.0-3.2); LYMPHOCYTES % 2.8 % (18.0-39.1); MEAN CORPUSCULAR HEMOGLOBIN 30.4 pg (28-32); MEAN CORPUSCULAR HGB CONC 33.1 g/dL (31-35); MEAN CORPUSCULAR VOLUME 91.6 fL (81-99); MONOCYTES # (AUTO) 0.3 (0.2-0.8); MONOCYTES % 1.3 % (4.4-11.3); NEUTROPHILS # (AUTO) 18.1 (2.1-6.9); NEUTROPHILS % 95.1 % (38.7-80.0); PLATELET COUNT 130 x10e3/uL (140-360); RED BLOOD COUNT 3.95 x10e6/uL (3.6-5.1); RED CELL DISTRIBUTION WIDTH 14.7 % (11.7-14.4)
[2018-02-09 07:24] LABS: ANION GAP 13.4 mmol/L (8-16); CALCIUM 9.9 mg/dL (8.4-10.2); CREATININE, SERUM 1.11 mg/dL (0.57-1.11); POTASSIUM 4.4 mmol/L (3.5-5.1)
[2018-02-09] MEDS: ENOXAPARIN INJ 80 MG/0.8 ML SYR SC SCH ×2 (07:49→22:13)
[2018-02-09] MEDS: ISOSORBIDE MONONITRATE 30 MG TAB CR PO SCH (08:04)
[2018-02-09] MEDS: LORATADINE 10 MG TAB PO SCH (08:04)
[2018-02-09] MEDS: AMIODARONE HCL 200 MG TAB PO SCH (08:04)
[2018-02-09] MEDS: PANTOPRAZOLE SOD 40 MG TABEC PO SCH (08:05)
[2018-02-09] MEDS: LISINOPRIL 2.5 MG TAB PO SCH (08:05)
[2018-02-09] MEDS: MELOXICAM 7.5 MG TAB PO SCH (08:05)
[2018-02-09] MEDS: FUROSEMIDE INJ 10 MG/ML 4 ML VIAL IV SCH ×2 (08:29→21:00)
[2018-02-09] MEDS: METHYLPREDNISOLONE SOD SUCC 40 MG/ML VIAL IV SCH ×2 (08:29→22:12)
[2018-02-09] MEDS ORDERED: SODIUM CHLORIDE 0.9% 1000ML 1,000 ML ONE ×2 (10:04→12:02)
[2018-02-09] MEDS ORDERED: LIDOCAINE HCL 2% LOCAL 20 ML VIAL ONE (11:52)
[2018-02-09] MEDS ORDERED: IOPAMIDOL 370 MG/ML 200 ML INFUS..BTL INJ ONE ×2 (11:52→12:53)
[2018-02-09] MEDS ORDERED: HEPARIN SOD/SOD CHLORIDE 2,000 ML ONE ×2 (11:52→12:53)
[2018-02-09] MEDS ORDERED: MIDAZOLAM HCL 2 MG/2 ML VIAL ONE (12:01)
[2018-02-09] MEDS ORDERED: FENTANYL CITRATE/PF 100MCG/2 ML INJ ONE (12:02)
[2018-02-09] MEDS: DILTIAZEM HCL ER 90MG CAPSULE PO SCH (16:59)
[2018-02-09] MEDS: MONTELUKAST SODIUM 10 MG TAB PO SCH (22:13)
[2018-02-09] MEDS: ATORVASTATIN 40 MG TAB PO SCH (22:13)
[2018-02-10] VITALS (8 sets, daily range): BP systolic 93–141; BP diastolic 55–75
[2018-02-10 07:26] LABS: BASOPHILS % 0.1 % (0.0-1.0); HEMATOCRIT 35.4 % (34.2-44.1); HEMOGLOBIN 11.5 g/dL (12.0-16.0); LYMPHOCYTES # (AUTO) 0.4 (1.0-3.2); LYMPHOCYTES % 2.7 % (18.0-39.1); MEAN CORPUSCULAR HEMOGLOBIN 30.3 pg (28-32); MEAN CORPUSCULAR HGB CONC 32.5 g/dL (31-35); MEAN CORPUSCULAR VOLUME 93.2 fL (81-99); MONOCYTES # (AUTO) 0.1 (0.2-0.8); NEUTROPHILS # (AUTO) 12.5 (2.1-6.9); NEUTROPHILS % 95.7 % (38.7-80.0); PLATELET COUNT 118 x10e3/uL (140-360)
[2018-02-10 07:50] LABS: ANION GAP 14.3 mmol/L (8-16); CALCIUM 9.2 mg/dL (8.4-10.2); CREATININE, SERUM 1.01 mg/dL (0.57-1.11); POTASSIUM 4.3 mmol/L (3.5-5.1)
[2018-02-10] MEDS: FUROSEMIDE INJ 10 MG/ML 4 ML VIAL IV SCH (08:58)
[2018-02-10] MEDS: LISINOPRIL 2.5 MG TAB PO SCH (09:00)
[2018-02-10] MEDS: DILTIAZEM HCL ER 90MG CAPSULE PO SCH ×2 (09:00→16:32)
[2018-02-10] MEDS: ISOSORBIDE MONONITRATE 30 MG TAB CR PO SCH (09:00)
[2018-02-10] MEDS: METHYLPREDNISOLONE SOD SUCC 40 MG/ML VIAL IV SCH ×2 (09:27→21:02)
[2018-02-10] MEDS: LORATADINE 10 MG TAB PO SCH (09:27)
[2018-02-10] MEDS: PANTOPRAZOLE SOD 40 MG TABEC PO SCH (09:28)
[2018-02-10] MEDS: AMIODARONE HCL 200 MG TAB PO SCH (09:28)
[2018-02-10] MEDS: ENOXAPARIN INJ 80 MG/0.8 ML SYR SC SCH ×2 (09:28→21:02)
[2018-02-10] MEDS: MELOXICAM 7.5 MG TAB PO SCH (09:28)
[2018-02-10 10:17] LABS: LYMPHOCYTES % (MANUAL) 1 % (19-48); NEUTROPHILS % (MANUAL) 99 % (40-74)
[2018-02-10 10:18] LABS: PLATELET ESTIMATE ADEQUATE; PLATELET MORPHOLOGY COMMENT NORMAL; RBC MORPHOLOGY COMMENT NORMAL
[2018-02-10 10:19] LABS: ANISOCYTOSIS SLIG; POIKILOCYTOSIS SLIGHT
--- NOTE | 2018-02-10 14:10 | Operative Report ---
DATE OF PROCEDURE: February 09, 2018 INDICATIONS: Chest pain, CHF and CAD. BLOOD LOSS: 4 mL. PROCEDURES 1. Left heart catheterization. 2. Selective coronary angiogram. 3. Graft injection. 4. Ascending aortogram. DESCRIPTION OF PROCEDURE: After informed consent, patient was brought to the cardiac catheterization laboratory and placed on the table. Both groins were painted and draped in a sterile fashion. Lidocaine injected in the right groin for local anesthesia. Right femoral artery was accessed by Seldinger technique, and a 6-Mauritian sheath was placed in the right femoral artery. The 5-Mauritian sheath would not advance so a dilator was used and a 6-Mauritian sheath was placed. Left main was cannulated using a JL4 5-Mauritian catheter. Coronary angiogram was performed. Images were obtained in multiple views. The right coronary artery was cannulated using a 3DRC 5-Mauritian catheter. Coronary angiogram was performed. Images were obtained in multiple views. The GALE to the LAD was cannulated using a GALE catheter. Coronary angiogram was performed and images obtained in multiple views. The stump of the saphenous vein graft to the right coronary artery was cannulated using a LCD catheter. Images were obtained in multiple views. Attempts were made to look for other grafts, but none were identified. An ascending aortogram was performed using a pigtail catheter. It did not show any additional grafts. REPORT: LEFT MAIN: Normal caliber and no significant stenosis noted. LEFT ANTERIOR DESCENDING: Normal caliber and 30% to 40% proximal lesion totally occluded in its midsegment. LEFT CIRCUMFLEX: Normal caliber. No significant stenosis noted. It gives rise to obtuse marginal branches. The 2nd obtuse marginal branch is about 60% lesion at its origin. RIGHT CORONARY ARTERY: Normal caliber with a long 60% to 70% proximal lesion and a 99% calcified distal lesion. GALE TO LAD: Is patent. SAPHENOUS VEIN GRAFT TO THE RIGHT CORONARY ARTERY: Is occluded in its proximal segment. ASCENDING AORTOGRAM: Shows no additional bypass grafts. PLAN: Medical management. Job#: [id number] NALDO
[2018-02-10] MEDS ORDERED: PREDNISONE20 MG PO (15:16)
[2018-02-10] MEDS ORDERED: DILTIAZEM HCL PO (15:16)
[2018-02-10] MEDS: DIGOXIN INJ 0.25 MG/ML 2 ML AMP IV SCH ×2 (16:32→21:02)
--- NOTE | 2018-02-10 16:43 | Progress Note ---
DATE: February 10, 2018 TIME: 4 p.m. OVERNIGHT: Continues to be short of breath. REVIEW OF SYSTEMS: Denies any dizziness. VITAL SIGNS: Reviewed. PHYSICAL EXAMINATION GENERAL: A tired-appearing woman resting in bed. HEENT: Anicteric. CARDIOVASCULAR: Rapid heart rate. LUNGS: Moderate breath sounds reduced at bases. ABDOMEN: Soft, nontender and nondistended. EXTREMITIES: No edema or calf tenderness. NEUROLOGIC: Alert and appropriate, moving all extremities. SKIN: Dry. PSYCHIATRIC: Normal affect. LABS: Reviewed. MEDICATIONS: Reviewed. ASSESSMENT: An 82-year-old woman. 1. Pulmonary edema with bilateral pleural effusions. 2. Coronary artery disease with history of coronary artery bypass grafting. 3. Atrial fibrillation with rapid ventricular response. 4. Bilateral leg edema. 5. Acute kidney injury. 6. Thrombocytopenia. 7. Chronic bronchitis. 8. Acute exacerbation of diastolic congestive heart failure. PLAN 1. Patient will benefit from ablation in the setting of atrial fibrillation with rapid ventricular response. This continues to be the main problem at home and causes multiple ER admissions. I have discussed this case with Dr. Marrero. He will further discuss with Dr. Moya. The patient may need to be transferred to [place] for the procedure to be done prior to being discharged home. 2. Continue drips for heart rate control per cardiology. 3. Leukocytosis is improving. 4. Acute kidney injury seems to be improving. 5. Will follow up with Dr. Moya and Dr. Marrero. Job#: [id number]
[2018-02-10] MEDS: ATORVASTATIN 40 MG TAB PO SCH (21:02)
[2018-02-10] MEDS: MONTELUKAST SODIUM 10 MG TAB PO SCH (21:02)
[2018-02-11] VITALS (8 sets, daily range): BP systolic 98–132; BP diastolic 61–83
[2018-02-11] MEDS: METHYLPREDNISOLONE SOD SUCC 40 MG/ML VIAL IV SCH ×2 (08:46→21:24)
[2018-02-11] MEDS: DILTIAZEM HCL ER 90MG CAPSULE PO SCH ×2 (08:47→16:12)
[2018-02-11] MEDS: FUROSEMIDE 20 MG TAB PO SCH (08:47)
[2018-02-11] MEDS: AMIODARONE HCL 200 MG TAB PO SCH (08:47)
[2018-02-11] MEDS: ISOSORBIDE MONONITRATE 30 MG TAB CR PO SCH (08:47)
[2018-02-11] MEDS: MELOXICAM 7.5 MG TAB PO SCH (08:47)
[2018-02-11] MEDS: PANTOPRAZOLE SOD 40 MG TABEC PO SCH (08:47)
[2018-02-11] MEDS: LISINOPRIL 2.5 MG TAB PO SCH (08:47)
[2018-02-11] MEDS: LORATADINE 10 MG TAB PO SCH (08:47)
[2018-02-11] MEDS: DIGOXIN 0.125 MG TAB PO SCH (08:47)
[2018-02-11] MEDS: ENOXAPARIN INJ 80 MG/0.8 ML SYR SC SCH ×2 (08:48→21:24)
--- NOTE | 2018-02-11 14:21 | Progress Note ---
DATE: February 11, 2018 TIME: 1:20 p.m. OVERNIGHT: No acute events. REVIEW OF SYSTEMS: Patient denies any chest pain, shortness of breath, nausea, vomiting, or diarrhea. Reports occasional palpitations. PHYSICAL EXAMINATION VITAL SIGNS: T 97.8, P 97, respirations 20, BP 115/67, pulse ox 97%. GENERAL: This is a tired-appearing woman resting supine in bed. HEENT: Normocephalic. Oral mucosa moist and intact. PERRLA. CARDIOVASCULAR: Rapid irregular heart rate. No clicks or murmurs noted. LUNGS: Moderate breath sounds in all yoder with significant reduction at bases due to poor excursion. ABDOMEN: Soft, nontender and not distended. EXTREMITIES: One plus nonpitting to left lower extremity. No calf tenderness. NEUROLOGIC: Alert and appropriate. Moving all extremities. MUSCULOSKELETAL: Midline scar noted to chest. SKIN: Dry. PSYCHIATRIC: Normal affect. LABS: WBC is decreased this day at 13. H and H at 11.5 and 35.4 respectively with platelets at 118,000. Chemistry with sodium 137, potassium 4.3, chloride 103, carbon dioxide 24, anion gap 14.3, BUN at 31 with creatinine 1.01. Estimated GFR is improved this day to 52. MEDICATIONS 1. Lovenox 70 mg q.12 h. 2. Digoxin 0.125 mg q.a.m. 3. Lasix 20 mg p.o. daily. 4. Cardizem 180 mg p.o. b.i.d. 5. Protonix 40 mg p.o. daily. 6. Claritin 10 mg p.o. daily. 7. Mobic 7.5 mg daily. 8. Lisinopril 2.5 mg p.o. daily. 9. Isosorbide 60 mg p.o. daily. 10. Amiodarone 200 mg once a day. 11. Solu-Medrol 20 mg q.12 h. IV. 12. Lipitor 40 mg p.o. at bedtime. 13. Montelukast 10 mg p.o. at night. 14. Metoprolol p.r.n. 15. Trazodone p.r.n. ASSESSMENT AND PLAN: This is an 82-year-old woman with: 1. Pulmonary edema with bilateral effusions: Continue medications and diuresis as above. 2. Coronary artery disease with history of coronary artery bypass graft. 3. Atrial fibrillation with rapid ventricular rate: This continues to be the main problem at home and resulting multiple emergency room admissions. Case is being discussed between Dr. Marrero and Dr. Moya for resolution versus discharge. 4. Bilateral leg edema: Some improvement this day. Discussion with the family in a case of remote history of some sort of peripheral procedure resulting in the edema. 5. Acute kidney injury: Creatinine is acceptable value and BUN improving. 6. Thrombocytopenia: Continue to monitor. It is improving. 7. Chronic bronchitis. 8. Acute exacerbation of diastolic congestive heart failure: Continue medications as above. 9. Prophylaxis: Lovenox. 10. Disposition: Discussed at bedside with the family and RN. Patient disposition pending arrangement for treatment of atrial fibrillation with rapid ventricular rate. Will monitor blood counts in a.m. DICTATED BY DAWN BRITO NP Job#: [id number] NALDO
[2018-02-11] MEDS: ATORVASTATIN 40 MG TAB PO SCH (21:24)
[2018-02-11] MEDS: MONTELUKAST SODIUM 10 MG TAB PO SCH (21:24)
[2018-02-11] MEDS: TRAZODONE HCL 50 MG TAB PO PRN (21:24)
[2018-02-12] VITALS: BP 102/55
[2018-02-12 04:32] VITALS: BP 103/56
[2018-02-12 07:05] LABS: BASOPHILS % 0.1 % (0.0-1.0); HEMATOCRIT 29.4 % (34.2-44.1); HEMOGLOBIN 9.8 g/dL (12.0-16.0); LYMPHOCYTES # (AUTO) 0.5 (1.0-3.2); LYMPHOCYTES % 3.3 % (18.0-39.1); MEAN CORPUSCULAR HEMOGLOBIN 30.5 pg (28-32); MEAN CORPUSCULAR HGB CONC 33.3 g/dL (31-35); MEAN CORPUSCULAR VOLUME 91.6 fL (81-99); MONOCYTES # (AUTO) 0.4 (0.2-0.8); MONOCYTES % 2.6 % (4.4-11.3); NEUTROPHILS # (AUTO) 12.6 (2.1-6.9); NEUTROPHILS % 92.7 % (38.7-80.0); PLATELET COUNT 127 x10e3/uL (140-360); RED BLOOD COUNT 3.21 x10e6/uL (3.6-5.1); RED CELL DISTRIBUTION WIDTH 14.2 % (11.7-14.4)
[2018-02-12 08:00] VITALS: BP 103/57
--- NOTE | 2018-02-12 08:18 | Progress Note ---
DATE: February 12, 2018 TIME: 7:41 a.m. OVERNIGHT: Still some periods of shortness of breath and anxiety. She also had some right groin discomfort. REVIEW OF SYSTEMS: Denies any dizziness. VITAL SIGNS: Reviewed. PHYSICAL EXAMINATION GENERAL: A tired-appearing woman resting in bed. HEENT: Anicteric. CARDIOVASCULAR: Normal sinus rhythm. LUNGS: Moderate breath sounds. ABDOMEN: Soft, nondistended. She has right groin tenderness at the heart catheterization site. EXTREMITIES: No edema. SKIN: Dry. PSYCHIATRIC: Flat affect. LABS: Reviewed. MEDICATIONS: Reviewed. ASSESSMENT AND PLAN: An 82-year-old woman. 1. Pulmonary edema with bilateral pleural effusions. 2. Coronary artery disease with history of bypass. 3. Atrial fibrillation with rapid ventricular rate. 4. Bilateral leg edema. 5. Acute kidney injury. 6. Thrombocytopenia. 7. Chronic bronchitis. 8. Acute exacerbation of diastolic congestive heart failure. PLAN 1. Continue medical treatment. 2. Awaiting electrophysiology evaluation. 3. Continue physical therapy. 4. Monitor fluid balance. 5. Continue steroids q.12 h. 6. Continue Lasix daily. 7. Continue blood pressure and heart rate control. 8. Continue amiodarone, beta enio and digoxin. 9. Check renal function tomorrow. 10. Left heart catheterization showed coronary artery disease, recommended medical management only. There is occluded saphenous vein graft to the right coronary artery. Job#: [id number]
[2018-02-12] MEDS: LISINOPRIL 2.5 MG TAB PO SCH (09:00)
[2018-02-12] MEDS: ENOXAPARIN INJ 80 MG/0.8 ML SYR SC SCH (09:00)
[2018-02-12] MEDS: MELOXICAM 7.5 MG TAB PO SCH (09:00)
[2018-02-12] MEDS: DILTIAZEM HCL ER 90MG CAPSULE PO SCH ×2 (09:00→22:39)
[2018-02-12] MEDS: ISOSORBIDE MONONITRATE 30 MG TAB CR PO SCH (09:00)
[2018-02-12] MEDS: METHYLPREDNISOLONE SOD SUCC 40 MG/ML VIAL IV SCH ×2 (10:00→22:38)
[2018-02-12] MEDS: AMIODARONE HCL 200 MG TAB PO SCH (11:55)
[2018-02-12 12:00] VITALS: BP 117/69
[2018-02-12] MEDS: PANTOPRAZOLE SOD 40 MG TABEC PO SCH (12:00)
[2018-02-12] MEDS: LORATADINE 10 MG TAB PO SCH (12:00)
[2018-02-12] MEDS: FUROSEMIDE 20 MG TAB PO SCH (12:00)
[2018-02-12] MEDS: DIGOXIN 0.125 MG TAB PO SCH (12:00)
[2018-02-12 12:13] LABS: BASOPHILS % 0.1 % (0.0-1.0); HEMATOCRIT 28.5 % (34.2-44.1); HEMOGLOBIN 9.6 g/dL (12.0-16.0); LYMPHOCYTES # (AUTO) 0.5 (1.0-3.2); LYMPHOCYTES % 3.6 % (18.0-39.1); MEAN CORPUSCULAR HEMOGLOBIN 30.3 pg (28-32); MEAN CORPUSCULAR HGB CONC 33.7 g/dL (31-35); MEAN CORPUSCULAR VOLUME 89.9 fL (81-99); MONOCYTES # (AUTO) 0.6 (0.2-0.8); NEUTROPHILS # (AUTO) 13.4 (2.1-6.9); NEUTROPHILS % 91.5 % (38.7-80.0); PLATELET COUNT 128 x10e3/uL (140-360); RED BLOOD COUNT 3.17 x10e6/uL (3.6-5.1); RED CELL DISTRIBUTION WIDTH 14.1 % (11.7-14.4)
--- NOTE | 2018-02-12 12:58 | Diagnostic Imaging Report ---
EXAM: CT Abdomen and Pelvis WITHOUT contrast INDICATION: \S\S/P CATH BRUISING BLEEDING, CK FOR RETROPERITONEAL HEMATOMA \S\[id number] \S\1214 COMPARISON: None. TECHNIQUE: Abdomen and pelvis were scanned utilizing a multidetector helical scanner from the lung base to the pubic symphysis without administration of IV contrast. Absence of intravenous contrast decreases sensitivity for detection of focal lesions and vascular pathology. Coronal and sagittal reformations were obtained. Routine protocol was performed. IV CONTRAST: None ORAL CONTRAST: Water COMPLICATIONS: None RADIATION DOSE: Total DLP: 524.56 mGy*cm Estimated effective dose: (DLP x 0.015 x size factor) mSv CTDIvol has been reviewed. It is below the limits set by the Radiation Protocol Committee (RPC). FINDINGS: LINES and TUBES: None. LOWER THORAX: Small bilateral pleural effusions with adjacent compressive atelectasis. Partially imaged median sternotomy wires. HEPATOBILIARY: Unenhanced liver is hyperdense. No biliary ductal dilation. Punctate right hepatic lobe calcified granuloma. GALLBLADDER: Surgically absent. SPLEEN: No splenomegaly. PANCREAS: Atrophic pancreas. No focal masses or ductal dilatation. ADRENALS: No adrenal nodules KIDNEYS/URETERS: No hydronephrosis. Limited for evaluation of renal parenchyma without intravenous contrast. No stones. GI TRACT: No abnormal distention, wall thickening, or evidence of bowel obstruction. Few scattered colonic motor vehicle without evidence of diverticulitis. Appendix is normal. PELVIC ORGANS/BLADDER: Unremarkable. LYMPH NODES: No lymphadenopathy. VESSELS: Unremarkable. PERITONEUM / RETROPERITONEUM: No free air or fluid. BONES: Degenerative changes of spine, especially lower thoracic spine. SOFT TISSUES: Asymmetric thickening of the right iliacus muscle (series 2, image 57). Significant right groin soft tissue swelling/edema (series 2, image 78) without discrete fluid collection. IMPRESSION: Small bilateral pleural effusions with adjacent compressive atelectasis. Asymmetric thickening of the right iliacus muscle, concerning for underlying hematoma. Significant right groin soft tissue swelling, likely due to edema/contusion without discrete fluid collection. Signed by: Dr. Srinivasan Coyle MD on 02/12/2018 12:55 PM
[2018-02-12 16:00] VITALS: BP 124/68
[2018-02-12] MEDS: TRAMADOL/APAP 37.5MG-325MG TAB PO PRN ×2 (16:10→22:48)
[2018-02-12] MEDS: METOPROLOL TARTRATE INJ 1 MG/ML VIAL IV PRN (18:06)
[2018-02-12 20:00] VITALS: BP 108/58
--- NOTE | 2018-02-12 20:58 | Consultation ---
DATE OF CONSULTATION: February 12, 2018 CHIEF COMPLAINT: Right groin hematoma. HISTORY OF PRESENT ILLNESS: The patient is 82-year-old female 3 days status post right femoral angiogram for left heart catheterization. The patient was doing well until yesterday when she was on the commode for prolonged period and experienced increasing swelling and ecchymosis with pain in the right groin area. Patient described pain is burning and she is still able to move her legs. PAST MEDICAL HISTORY: Significant for coronary artery disease, hypertension, atrial fibrillation. SURGICAL HISTORY: Positive for coronary artery bypass in 2012, thyroidectomy, cholecystectomy, and recent right groin access for angiogram. ALLERGIES: THE PATIENT HAS NO DRUG ALLERGIES. SOCIAL HABITS: She does not smoke or drink. REVIEW OF SYSTEMS: She had no chest pain or shortness of breath. PHYSICAL EXAMINATION: VITAL SIGNS: Temperature 97, blood pressure 120/70 with a pulse of 120. GENERAL: Patient is awake, alert, in moderate discomfort. HEENT: Sclerae anicteric. NECK: Supple. LUNGS: Clear. HEART: Irregular rate and rhythm. No murmurs. ABDOMEN: Soft, nontender. Right groin is ecchymotic with and tenderness to palpation. EXTREMITIES: Right popliteal artery is palpable. Pedal pulse is nonpalpable, but the foot is warm and symmetrical with the left foot. LABORATORY [place]: [place] [address] with hemoglobin of 9.6. Creatinine of 1.0. CT scan showed thickening in the right iliac muscle consistent with hematoma. ASSESSMENT: Right groin hematoma likely from leakage from the recent right femoral artery access for angiogram. CT scan was done without contrast, so cannot rule out active bleeding. PLAN: Ultrasound of right groin to rule out pseudoaneurysm formation. Will follow patient closely. Job#: [id number]
[2018-02-12] MEDS: ATORVASTATIN 40 MG TAB PO SCH (22:38)
[2018-02-12] MEDS: MONTELUKAST SODIUM 10 MG TAB PO SCH (22:38)
[2018-02-13] VITALS: BP 150/75
[2018-02-13 04:00] VITALS: BP 121/66
[2018-02-13 08:18] VITALS: BP 115/57
[2018-02-13] MEDS: MELOXICAM 7.5 MG TAB PO SCH (09:16)
[2018-02-13] MEDS: FUROSEMIDE 20 MG TAB PO SCH (09:16)
[2018-02-13] MEDS: METHYLPREDNISOLONE SOD SUCC 40 MG/ML VIAL IV SCH ×2 (09:16→21:44)
[2018-02-13] MEDS: PANTOPRAZOLE SOD 40 MG TABEC PO SCH (09:16)
[2018-02-13] MEDS: AMIODARONE HCL 200 MG TAB PO SCH (09:16)
[2018-02-13] MEDS: LORATADINE 10 MG TAB PO SCH (09:16)
[2018-02-13] MEDS: LISINOPRIL 2.5 MG TAB PO SCH (09:20)
[2018-02-13] MEDS: DIGOXIN 0.125 MG TAB PO SCH (09:44)
[2018-02-13] MEDS: ISOSORBIDE MONONITRATE 30 MG TAB CR PO SCH (09:44)
[2018-02-13] MEDS: DILTIAZEM HCL ER 90MG CAPSULE PO SCH ×2 (09:44→21:46)
[2018-02-13 10:43] VITALS: BP 115/57
[2018-02-13 16:16] VITALS: BP 107/58
[2018-02-13 16:47] LABS: BASOPHILS % 0.1 % (0.0-1.0); HEMATOCRIT 23.3 % (34.2-44.1); HEMOGLOBIN 7.8 g/dL (12.0-16.0); LYMPHOCYTES # (AUTO) 0.5 (1.0-3.2); LYMPHOCYTES % 4.4 % (18.0-39.1); MEAN CORPUSCULAR HEMOGLOBIN 30.4 pg (28-32); MEAN CORPUSCULAR HGB CONC 33.5 g/dL (31-35); MEAN CORPUSCULAR VOLUME 90.7 fL (81-99); MONOCYTES # (AUTO) 0.3 (0.2-0.8); MONOCYTES % 2.1 % (4.4-11.3); NEUTROPHILS # (AUTO) 11.2 (2.1-6.9); NEUTROPHILS % 91.6 % (38.7-80.0); PLATELET COUNT 133 x10e3/uL (140-360); RED BLOOD COUNT 2.57 x10e6/uL (3.6-5.1); RED CELL DISTRIBUTION WIDTH 14.3 % (11.7-14.4)
[2018-02-13 20:00] VITALS: BP 115/57
[2018-02-13] MEDS: ATORVASTATIN 40 MG TAB PO SCH (21:44)
[2018-02-13] MEDS: MONTELUKAST SODIUM 10 MG TAB PO SCH (21:44)
[2018-02-13] MEDS: TRAMADOL/APAP 37.5MG-325MG TAB PO PRN (21:45)
[2018-02-14] VITALS (8 sets, daily range): BP systolic 98–128; BP diastolic 50–61
--- NOTE | 2018-02-14 06:52 | Progress Note ---
DATE: February 13, 2018 TIME: 7:30 a.m. OVERNIGHT: Right groin pain. REVIEW OF SYSTEMS: Denies any dizziness. PHYSICAL EXAMINATION VITAL SIGNS: Reviewed. GENERAL: A tired-appearing woman resting in bed. HEENT: Anicteric. CARDIOVASCULAR: Normal S1 and S2. Rapid heart rate at times. LUNGS: Moderate breath sounds. ABDOMEN: Soft and nontender. EXTREMITIES: Right groin is tender with hematoma present and some induration. Extremities with no edema. SKIN: Dry. PSYCHIATRIC: Flat affect. LABS: Reviewed. MEDICATIONS: Reviewed. ASSESSMENT: An 82-year-old woman with: 1. Pulmonary edema with bilateral pleural effusion. 2. Right groin hematoma following left heart catheterization. 3. Coronary artery disease with history of bypass. 4. Atrial fibrillation with rapid ventricular response. 5. Bilateral leg edema. 6. Acute kidney injury. 7. Thrombocytopenia. 8. Chronic bronchitis. 9. Acute exacerbation of diastolic congestive heart failure. PLAN 1. Continue management treatment. 2. May likely need evacuation of the hematoma of the right groin. 3. Will need ablation of the atrial fibrillation. This is the likely etiology of her recurrent symptoms of shortness of breath and chest pain at home. 4. Left heart catheterization did reveal occluded saphenous vein graft to the right coronary artery. Continue medical management. Job#: [id number] NALDO
--- NOTE | 2018-02-14 06:56 | Progress Note ---
DATE: February 14, 2018 TIME: 6:33 a.m. OVERNIGHT: No events. REVIEW OF SYSTEMS: Negative. PHYSICAL EXAMINATION VITAL SIGNS: Reviewed. GENERAL: A tired-appearing woman resting in bed. HEENT: Anicteric. CARDIOVASCULAR: Normal S1 and S2. LUNGS: Moderate breath sounds. ABDOMEN: Soft, nontender and nondistended. In the right groin, she has a hematoma with induration and tenderness at the site. EXTREMITIES: No edema. SKIN: Dry. PSYCHIATRIC: Flat affect. LABS: Reviewed. MEDICATIONS: Reviewed. ASSESSMENT: An 82-year-old woman with: 1. Pulmonary edema with bilateral pleural effusion. 2. Bilateral leg edema. 3. Right groin hematoma following heart catheterization. 4. Coronary artery disease with a history of coronary artery bypass grafting. 5. Occluded saphenous vein graft to the right coronary artery. 6. Acute kidney injury. 7. Thrombocytopenia. 8. Chronic bronchitis. 9. Acute exacerbation of diastolic congestive heart failure. PLAN 1. Evacuation of the right groin hematoma planned for today. 2. Continue medication regimen. 3. Will need ablation of the atrial fibrillation as this is the cause of the recurrent hospitalizations and symptoms at home of shortness of breath and chest pain. 4. Drop in hemoglobin yesterday from 9.6 to 7.8. Will obtain a CBC this morning. 5. Leukocytosis, slowly improving. 6. Check renal function this morning. Job#: [id number] NALDO
[2018-02-14 07:14] LABS: BASOPHILS % 0.1 % (0.0-1.0); LYMPHOCYTES # (AUTO) 0.5 (1.0-3.2); LYMPHOCYTES % 4.2 % (18.0-39.1); MEAN CORPUSCULAR HEMOGLOBIN 30.8 pg (28-32); MEAN CORPUSCULAR HGB CONC 34.8 g/dL (31-35); MEAN CORPUSCULAR VOLUME 88.5 fL (81-99); MONOCYTES # (AUTO) 0.3 (0.2-0.8); MONOCYTES % 2.2 % (4.4-11.3); NEUTROPHILS # (AUTO) 10.5 (2.1-6.9); NEUTROPHILS % 89.2 % (38.7-80.0); PLATELET COUNT 146 x10e3/uL (140-360); RED BLOOD COUNT 2.27 x10e6/uL (3.6-5.1); RED CELL DISTRIBUTION WIDTH 14.1 % (11.7-14.4)
[2018-02-14 07:17] LABS: HEMATOCRIT 20.1 % (34.2-44.1)
[2018-02-14 07:45] LABS: ANION GAP 11.1 mmol/L (8-16); CALCIUM 9.1 mg/dL (8.4-10.2); CREATININE, SERUM 1.55 mg/dL (0.57-1.11); POTASSIUM 5.1 mmol/L (3.5-5.1)
[2018-02-14] MEDS ORDERED: FUROSEMIDE INJ 10 MG/ML 2 ML VIAL IV PRN (07:45)
[2018-02-14] MEDS ORDERED: SODIUM CHLORIDE 0.9% 250ML 250 ML IV ONE (07:45)
[2018-02-14] MEDS: AMIODARONE HCL 200 MG TAB PO SCH (09:00)
[2018-02-14] MEDS: MELOXICAM 7.5 MG TAB PO SCH (09:00)
[2018-02-14] MEDS: ISOSORBIDE MONONITRATE 30 MG TAB CR PO SCH (09:00)
[2018-02-14] MEDS: DILTIAZEM HCL ER 90MG CAPSULE PO SCH ×2 (09:00→20:48)
[2018-02-14] MEDS: FUROSEMIDE 20 MG TAB PO SCH (09:00)
[2018-02-14] MEDS: DIGOXIN 0.125 MG TAB PO SCH (09:00)
[2018-02-14] MEDS: PANTOPRAZOLE SOD 40 MG TABEC PO SCH (09:00)
[2018-02-14] MEDS: LORATADINE 10 MG TAB PO SCH (09:00)
[2018-02-14] MEDS: LISINOPRIL 2.5 MG TAB PO SCH (09:00)
[2018-02-14] MEDS: METHYLPREDNISOLONE SOD SUCC 40 MG/ML VIAL IV SCH ×2 (09:13→20:47)
[2018-02-14 09:30] LABS: LYMPHOCYTES % (MANUAL) 4 % (19-48); MONOCYTES % (MANUAL) 3 % (3.4-9.0); MYELOCYTES % (MANUAL) 1 % (0-0); NEUTROPHILS % (MANUAL) 92 % (40-74)
[2018-02-14 09:31] LABS: ELLIPTOCYTE, RBC SLIGHT; HYPOCHROMASIA MODERATE; PLATELET ESTIMATE ADEQUATE; RBC MORPHOLOGY COMMENT NORMAL
[2018-02-14 09:33] LABS: ANISOCYTOSIS SLIGHT
[2018-02-14] MEDS ORDERED: SODIUM CHLORIDE 0.9% 250ML 250 ML ONE (10:54)
[2018-02-14] MEDS ORDERED: FENTANYL CITRATE/PF 100MCG/2 ML INJ ONE (17:27)
--- NOTE | 2018-02-14 18:42 | Operative Report ---
DATE OF PROCEDURE: February 14, 2018 PREOPERATIVE DIAGNOSIS: Right groin hematoma. POSTOPERATIVE DIAGNOSIS: Multiloculated right groin hematoma. ANESTHESIA: General. INDICATIONS FOR SURGERY: This 82-year-old female, status post right femoral angiogram for left heart catheterizations 5 days ago who developed right groin hematoma with drop of hemoglobin from 12 to 7 grams. The patient has a large right hematoma. Preoperative Doppler study had shown no active bleeding from the femoral vessels. Patient consented for exploration the right groin hematoma and possible evacuation for pain control. DESCRIPTION OF PROCEDURE: Patient brought to the OR and intubated. The right groin is prepped with alcohol and draped in sterile fashion. A transverse incision was made directly on the roof of the hematoma just above the inguinal skin crease extending down to subcutaneous tissue. We found no active bleeding. There is mid subcutaneous tissue and clots consistent with a multiloculated hematoma in the subcutaneous tissue. Dissection carried down to the underlying muscle. Similarly upon opening the fascia there is also mixed clot and soft tissue with no defined large clots. The operative field is then irrigated. No pulsatile mass is encountered. At this point, the wound is irrigated and a 10-Slovak Lexx drain placed in the wound and taken out through a stab incision in the right inguinal area and the skin was then closed with interrupted vertical mattress stitches of 3-0 nylon. Dressing applied. Patient tolerated procedure well. Extubated and transported to the recovery room. Estimated blood loss 20 mL. Job#: [id number]
[2018-02-14] MEDS: MONTELUKAST SODIUM 10 MG TAB PO SCH (20:48)
[2018-02-14] MEDS: ATORVASTATIN 40 MG TAB PO SCH (20:48)
[2018-02-14] MEDS: HYDROCODONE/APAP 5MG-325MG TAB PO PRN (21:04)
[2018-02-14] MEDS ORDERED: CEFAZOLIN SOD 1 GM/NS 50ML 50 ML IV SCH (22:00)
[2018-02-14] MEDS: CEFAZOLIN SOD 1 GM VIAL IV SCH (22:46)
[2018-02-14] MEDS: TRAZODONE HCL 50 MG TAB PO PRN (23:31)
[2018-02-15] VITALS (8 sets, daily range): BP systolic 89–120; BP diastolic 48–57
[2018-02-15] MEDS: HYDROCODONE/APAP 5MG-325MG TAB PO PRN ×2 (04:31→20:29)
[2018-02-15] MEDS: CEFAZOLIN SOD 1 GM VIAL IV SCH ×3 (06:30→22:57)
[2018-02-15 07:07] LABS: BASOPHILS % 0.1 % (0.0-1.0); HEMATOCRIT 27.6 % (34.2-44.1); HEMOGLOBIN 9.5 g/dL (12.0-16.0); LYMPHOCYTES # (AUTO) 0.5 (1.0-3.2); LYMPHOCYTES % 4.9 % (18.0-39.1); MEAN CORPUSCULAR HEMOGLOBIN 29.4 pg (28-32); MEAN CORPUSCULAR HGB CONC 34.4 g/dL (31-35); MEAN CORPUSCULAR VOLUME 85.4 fL (81-99); MONOCYTES # (AUTO) 0.3 (0.2-0.8); MONOCYTES % 2.9 % (4.4-11.3); NEUTROPHILS # (AUTO) 8.8 (2.1-6.9); NEUTROPHILS % 89.2 % (38.7-80.0); PLATELET COUNT 147 x10e3/uL (140-360); RED BLOOD COUNT 3.23 x10e6/uL (3.6-5.1); RED CELL DISTRIBUTION WIDTH 16.3 % (11.7-14.4)
[2018-02-15 07:47] LABS: ALBUMIN 2.8 g/dL (3.5-5.0); ALBUMIN/GLOBULIN RATIO 1.5 (0.8-2.0); ANION GAP 11.2 mmol/L (8-16); CALCIUM 8.7 mg/dL (8.4-10.2); CREATININE, SERUM 1.21 mg/dL (0.57-1.11); POTASSIUM 5.2 mmol/L (3.5-5.1)
--- NOTE | 2018-02-15 07:58 | Progress Note ---
DATE: February 15, 2018 TIME: 7:20 a.m. OVERNIGHT: The patient underwent evaluation of a right groin hematoma. Currently, pain is about 6/10. REVIEW OF SYSTEMS: Denies any chest pain. PHYSICAL EXAMINATION VITAL SIGNS: Reviewed. GENERAL: A tired-appearing woman resting in bed. HEENT: Anicteric. CARDIOVASCULAR: Normal S1 and S2. LUNGS: Moderate breath sounds. ABDOMEN: Soft and nondistended. She has a right groin with dressing in place and J-P drain in place. EXTREMITIES: No edema. SKIN: Dry. PSYCHIATRIC: Flat affect. LABS: Reviewed. MEDICATIONS: Reviewed. ASSESSMENT: An 82-year-old woman with: 1. Pulmonary edema with bilateral pleural effusion. 2. Right groin hematoma: Status post evacuation. 3. Bilateral leg edema. 4. Coronary artery disease with history of coronary artery bypass grafting. 5. Occluded saphenous vein graft to the right coronary artery. 6. Acute kidney injury. 7. Thrombocytopenia. 8. Chronic bronchitis. 9. Acute exacerbation of diastolic congestive heart failure. PLAN 1. Hemoglobin has improved from 7 up to 9.5. 2. Pain is currently controlled. 3. Continue local wound care to the right groin. 4. Renal function is slightly worse today. Rehydrate the patient. 5. Continue AV blocking agents. 6. Reduce steroids to 20 mg daily of Solu-Medrol. 7. Continue antihistamine. 8. Continue to hold blood thinners. 9. Discharge planning to [facility] for further management, including ablation of atrial fibrillation. Job#: [id number] MI
[2018-02-15] MEDS ORDERED: HYDROCODONE/APAP 7.5MG-325MG 1 EA TAB PO PRN (08:30)
[2018-02-15] MEDS: DIGOXIN 0.125 MG TAB PO SCH (08:50)
[2018-02-15] MEDS: AMIODARONE HCL 200 MG TAB PO SCH (08:50)
[2018-02-15] MEDS: ISOSORBIDE MONONITRATE 30 MG TAB CR PO SCH (08:50)
[2018-02-15] MEDS: MELOXICAM 7.5 MG TAB PO SCH (08:50)
[2018-02-15] MEDS: METHYLPREDNISOLONE SOD SUCC 40 MG/ML VIAL IV SCH (08:50)
[2018-02-15] MEDS: DILTIAZEM HCL ER 90MG CAPSULE PO SCH ×2 (08:50→20:27)
[2018-02-15] MEDS: LORATADINE 10 MG TAB PO SCH (08:50)
[2018-02-15] MEDS: FUROSEMIDE 20 MG TAB PO SCH (08:50)
[2018-02-15] MEDS: LISINOPRIL 2.5 MG TAB PO SCH (08:51)
[2018-02-15] MEDS: PANTOPRAZOLE SOD 40 MG TABEC PO SCH (08:51)
[2018-02-15 08:55] LABS: BAND NEUTROPHILS % (MANUAL) 1 %; LYMPHOCYTES % (MANUAL) 3 % (19-48); MONOCYTES % (MANUAL) 2 % (3.4-9.0); MYELOCYTES % (MANUAL) 1 % (0-0); NEUTROPHILS % (MANUAL) 92 % (40-74); PLATELET ESTIMATE SLIGHTLY DECREASED; PLATELET MORPHOLOGY COMMENT NORMAL
[2018-02-15 08:56] LABS: ANISOCYTOSIS SLIGHT; HYPOCHROMASIA SLIGHT; RBC MORPHOLOGY COMMENT NORMAL
[2018-02-15] MEDS: DOCUSATE SODIUM 100 MG CAP PO SCH ×2 (09:46→17:25)
[2018-02-15] MEDS ORDERED: LIDOCAINE HCL 2% LOCAL INJ 5 ML SDV VIAL INJ ONE (18:10)
[2018-02-15] MEDS ORDERED: SEVOFLURANE INHAL SOLN 250 ML PEN BTL ONE (18:10)
[2018-02-15] MEDS ORDERED: PROPOFOL IV EMULSION 10 MG/ML 20 ML VIAL ONE (18:10)
[2018-02-15] MEDS ORDERED: CEFAZOLIN SOD 1 GM VIAL ONE (18:10)
[2018-02-15] MEDS ORDERED: ONDANSETRON HCL INJ 2 MG/ML VIAL ONE (18:10)
[2018-02-15] MEDS: ATORVASTATIN 40 MG TAB PO SCH (20:28)
[2018-02-15] MEDS: MONTELUKAST SODIUM 10 MG TAB PO SCH (20:28)
[2018-02-15] MEDS: TRAZODONE HCL 50 MG TAB PO PRN (22:57)
[2018-02-16] VITALS: BP 89/52
[2018-02-16 04:00] VITALS: BP 102/58
[2018-02-16] MEDS: CEFAZOLIN SOD 1 GM VIAL IV SCH ×2 (06:33→14:33)
[2018-02-16 07:02] LABS: HEMATOCRIT 28.5 % (34.2-44.1); HEMOGLOBIN 9.8 g/dL (12.0-16.0)
[2018-02-16 07:54] VITALS: BP 121/62
--- NOTE | 2018-02-16 08:46 | Progress Note ---
DATE: February 16, 2018 TIME: 7:01 a.m. OVERNIGHT: No events. Pain controlled. REVIEW OF SYSTEMS: Denies any dizziness. PHYSICAL EXAMINATION VITAL SIGNS: Reviewed. GENERAL: A tired-appearing woman resting in bed. HEENT: Anicteric. CARDIOVASCULAR: Normal S1 and S2. LUNGS: Moderate breath sounds. ABDOMEN: Soft, nontender, and nondistended. She has a right groin dressing in place with J-P drain in place with some serosanguineous material. EXTREMITIES: No edema. SCD bilaterally. SKIN: Dry. PSYCHIATRIC: Normal affect. LABS: Reviewed. MEDICATIONS: Reviewed. ASSESSMENT: An 82-year-old woman with 1. Pulmonary edema with bilateral pleural effusion. 2. Right groin hematoma, status post evacuation. 3. Bilateral leg edema. 4. Coronary artery disease with history of bypass. 5. Occluded saphenous vein graft to the right coronary artery. 6. Acute kidney injury. 7. Thrombocytopenia. 8. Chronic bronchitis. 9. Acute exacerbation of diastolic congestive heart failure. PLAN 1. SADIE drain per surgical team on the right groin. 2. Will need physical therapy. 3. Skilled facility placement. 4. Patient will plan to follow up with collections specialist about 7 days after she is discharged to the skilled facility. 5. Continue AV blocking agents. 6. Continue low-dose steroid. 7. Obtain H and H this morning. If stable, patient can be transitioned to skilled facility. Seven days later, can visit collections specialist in his office for possible setting up of ablation. Will await the removal of the SADIE drain prior to discharge into skilled facility. 8. Renal function remaining somewhat stable, but likely stage 3 chronic kidney disease. Job#: [id number]
[2018-02-16] MEDS: MELOXICAM 7.5 MG TAB PO SCH (09:00)
[2018-02-16 09:55] VITALS: BP 132/73
[2018-02-16] MEDS: DILTIAZEM HCL ER 90MG CAPSULE PO SCH (10:00)
[2018-02-16] MEDS: ISOSORBIDE MONONITRATE 30 MG TAB CR PO SCH (10:00)
[2018-02-16] MEDS: DIGOXIN 0.125 MG TAB PO SCH (10:00)
[2018-02-16] MEDS: PANTOPRAZOLE SOD 40 MG TABEC PO SCH (10:00)
[2018-02-16] MEDS: LORATADINE 10 MG TAB PO SCH (10:00)
[2018-02-16] MEDS: LISINOPRIL 2.5 MG TAB PO SCH (10:00)
[2018-02-16] MEDS: FUROSEMIDE 20 MG TAB PO SCH (10:00)
[2018-02-16] MEDS: DOCUSATE SODIUM 100 MG CAP PO SCH ×2 (10:00→17:22)
[2018-02-16] MEDS: METHYLPREDNISOLONE SOD SUCC 40 MG/ML VIAL IV SCH (10:00)
[2018-02-16] MEDS: AMIODARONE HCL 200 MG TAB PO SCH (10:00)
[2018-02-16 12:00] VITALS: BP 121/59
[2018-02-16 16:29] VITALS: BP 107/58
[2018-02-16] MEDS ORDERED: ZOLPIDEM TARTRATE 5 MG TAB PO PRN (21:00)
== END 2018-02-16 17:42 | DRG 287 ==
LOC: ER 10:46 → ERHOLD 17:21 → IMCU 17:50 → OBSVTOIN 02-08 14:16 → MED/SURG 02-08 16:19
PROVIDERS: ADMIT Internal Medicine; ATTEND Internal Medicine
PROC: BD11YZZ Fluoroscopy of Esophagus using Other Contrast (ICD-10-PCS; principal; 2018-02-09)
PROC: 4A023N7 Measurement of Cardiac Sampling and Pressure, Left Heart, Percutaneous Approach (ICD-10-PCS; 2018-02-09)
PROC: B2111ZZ Fluoroscopy of Multiple Coronary Arteries using Low Osmolar Contrast (ICD-10-PCS; 2018-02-09)
PROC: B2151ZZ Fluoroscopy of Left Heart using Low Osmolar Contrast (ICD-10-PCS; 2018-02-09)
PROC: B3101ZZ Fluoroscopy of Thoracic Aorta using Low Osmolar Contrast (ICD-10-PCS; 2018-02-09)
PROC: B2121ZZ Fluoroscopy of Single Coronary Artery Bypass Graft using Low Osmolar Contrast (ICD-10-PCS; 2018-02-09)
PROC: 0HCAXZZ Extirpation of Matter from Inguinal Skin, External Approach (ICD-10-PCS; 2018-02-14)
PROC: 30233N1 Transfusion of Nonautologous Red Blood Cells into Peripheral Vein, Percutaneous Approach (ICD-10-PCS; 2018-02-14)
DX: I11.0 Hypertensive heart disease with heart failure (principal); N17.9 Acute kidney failure, unspecified; I97.630 Postprocedural hematoma of a circulatory system organ or structure following a cardiac catheterization; I25.810 Atherosclerosis of coronary artery bypass graft(s) without angina pectoris; I50.33 Acute on chronic diastolic (congestive) heart failure; I48.91 Unspecified atrial fibrillation; I25.10 Atherosclerotic heart disease of native coronary artery without angina pectoris; Z95.1 Presence of aortocoronary bypass graft; D69.6 Thrombocytopenia, unspecified; J42 Unspecified chronic bronchitis; K21.9 Gastro-esophageal reflux disease without esophagitis; I08.1 Rheumatic disorders of both mitral and tricuspid valves; Z86.718 Personal history of other venous thrombosis and embolism; Z86.711 Personal history of pulmonary embolism; Z87.440 Personal history of urinary (tract) infections
CPT/HCPCS: 36140; 36200; 36415; 71045; 71260; 74176; 75756; 77002; 80048; 80053; 80061; 82550; 82553; 82948; 83880; 84443; 84484; 85014; 85018; 85025; 85610; 85730; 86850; 86900; 86920; 93005; 93459; 93926; 97139; 99285; G0378; J0690; J1160; J1650; J1940; J2001; J2250; J2405; J2920; J7030; J7050; P9016; Q9967

== ENCOUNTER 2018-03-11 15:53 | Emergency (ER) | payer MEDICARE, OTHER ==
[~2018-03-11] VITALS: Ht 149.9 cm; Wt 65.8 kg
[~2018-03-11 15:53] MED LIST changes: +DILTIAZEM HCL PO; +LISINOPRIL2.5 MG PO; +LORATADINE10 MG PO; +MELOXICAM7.5 MG PO; +MONTELUKAST SOD10 MG PO; +PREDNISONE20 MG PO
[2018-03-11] MEDS ORDERED: KETOROLAC TROMETHAMINE 30 MG/ML VIAL IV NR (17:00)
[2018-03-11] MEDS ORDERED: SODIUM CHLORIDE 0.9% 1000ML 1,000 ML IV STA (17:05)
[2018-03-11] MEDS ORDERED: DIATRIZOATE MEGL/DIATRIZOA SOD 30 ML BTL PO ONE (17:09)
[2018-03-11] MEDS ORDERED: MORPHINE SULFATE 2 MG/ML SYR IV STA (17:14)
[2018-03-11] MEDS ORDERED: ONDANSETRON HCL INJ 2 MG/ML VIAL IV ONE (17:15)
[2018-03-11 17:40] LABS: CLARITY,URINE CLEAR (CLEAR); COLOR,URINE STRAW (YELLOW)
[2018-03-11 17:41] LABS: BILIRUBIN,URINE NEGATIVE (NEGATIVE); KETONES,URINE NEGATIVE (NEGATIVE); LEUKOCYTE ESTERASE ,URINE NEGATIVE (NEGATIVE); NITRITE,URINE NEGATIVE (NEGATIVE); PROTEIN,URINE DIPSTICK NEGATIVE (NEGATIVE); URINE UROBILINOGEN 0.2 mg/dL (0.2 - 1)
[2018-03-11 18:06] LABS: BASOPHILS # (AUTO) 0.1 (0.0-0.1); BASOPHILS % 0.7 % (0.0-1.0); EOSINOPHILS % 0.6 % (0.0-6.0); HEMATOCRIT 33.4 % (34.2-44.1); HEMOGLOBIN 11.5 g/dL (12.0-16.0); LYMPHOCYTES # (AUTO) 1.6 (1.0-3.2); LYMPHOCYTES % 23.2 % (18.0-39.1); MEAN CORPUSCULAR HEMOGLOBIN 30.2 pg (28-32); MEAN CORPUSCULAR HGB CONC 34.4 g/dL (31-35); MEAN CORPUSCULAR VOLUME 87.7 fL (81-99); MONOCYTES # (AUTO) 0.5 (0.2-0.8); MONOCYTES % 6.9 % (4.4-11.3); NEUTROPHILS # (AUTO) 4.5 (2.1-6.9); NEUTROPHILS % 67.6 % (38.7-80.0); PLATELET COUNT 238 x10e3/uL (140-360); RED BLOOD COUNT 3.81 x10e6/uL (3.6-5.1); RED CELL DISTRIBUTION WIDTH 17.2 % (11.7-14.4)
[2018-03-11 18:07] LABS: WBC,URINE (MAN) 0-5 /HPF (0-5)
[2018-03-11 18:08] LABS: RBC,URINE 0-5 /HPF (0-5)
[2018-03-11 18:14] LABS: INR 1.23; PROTHROMBIN TIME 14.6 seconds (11.9-14.5)
[2018-03-11 18:15] LABS: PARTIAL THROMBOPLASTIN TIME 28.1 seconds (23.8-35.5)
[2018-03-11 18:20] LABS: AMYLASE 43 U/L (25-125); LIPASE 21 U/L (8-78)
[2018-03-11 18:26] LABS: ALANINE AMINOTRANSFERASE 19 IU/L (0-55); ALBUMIN 3.6 g/dL (3.5-5.0); ALBUMIN/GLOBULIN RATIO 1.3 (0.8-2.0); ALKALINE PHOSPHATASE 122 IU/L (40-150); ANION GAP 14.6 mmol/L (8-16); BLOOD UREA NITROGEN 6 mg/dL (7-26); BUN/CREATININE RATIO 8 (6-25); CALCIUM 10.1 mg/dL (8.4-10.2); CARBON DIOXIDE 26 mmol/L (22-29); CHLORIDE 103 mmol/L (98-107); CREATININE, SERUM 0.78 mg/dL (0.57-1.11); EST GLOMERULAR FILTRATION RATE > 60 ML/MIN (60-); GLUCOSE 107 mg/dL (74-118); POTASSIUM 3.6 mmol/L (3.5-5.1); SODIUM 140 mmol/L (136-145)
--- NOTE | 2018-03-11 19:21 | Diagnostic Imaging Report ---
EXAM: CT ABDOMEN AND PELVIS without IV CONTRAST INDICATION: Abdominal pain, nausea, vomiting COMPARISON: CT abdomen and pelvis without IV contrast February 12, 2018 TECHNIQUE: The abdomen and pelvis were scanned using a multidetector helical scanner. Coronal and sagittal reformations were obtained. Routine protocol performed. IV Contrast: None Oral Contrast: Gastrografin CTDIvol has been reviewed. It is below the limits set by the Radiation Protocol Committee (RPC). FINDINGS: LOWER THORAX: Mild left lower lobe atelectasis. Small left pleural effusion, improved from prior exam. Resolution of right pleural effusion. LIVER: No masses BILIARY: Cholecystectomy. No ductal dilation. SPLEEN: No masses PANCREAS: No masses ADRENALS: No nodules RIGHT KIDNEY: No nephroureterolithiasis or hydronephrosis. LEFT KIDNEY: No nephroureterolithiasis or hydronephrosis. GI TRACT: No wall thickening or obstruction. Normal appendix VESSELS: Mild atherosclerotic changes of the abdominal aorta without aneurysm. PERITONEUM/RETROPERITONEUM: No free air or fluid LYMPH NODES: No lymphadenopathy REPRODUCTIVE ORGANS: Normal BLADDER: Moderately distended SOFT TISSUES: Small fat-containing left inguinal hernia. Interval resolution of right iliacus muscle hematoma. BONES: No suspicious bone lesions. IMPRESSION: No findings to explain patient's symptoms. Interval resolution of right iliacus muscle hematoma. Interval resolution of right pleural effusion and decreased small left pleural effusion. Signed by: Dr. Ashleigh Shafer M.D. on 03/11/2018 7:17 PM
[2018-03-11] MEDS ORDERED: AMIODARONE HCL200 MG PO (19:33)
[2018-03-11] MEDS ORDERED: DOCUSATE SODIU100 MG PO (19:33)
[2018-03-11] MEDS ORDERED: METOPROLOL TART25 MG PO (19:33)
[2018-03-11] MEDS ORDERED: MATZIM LA180 MG PO (19:33)
[2018-03-11] MEDS ORDERED: DIGOXIN125 MCG PO (19:33)
[2018-03-11] MEDS ORDERED: SENSIPAR30 MG PO (19:33)
[2018-03-11] MEDS ORDERED: PANTOPRAZOLE SO40 MG PO (19:33)
[2018-03-11] MEDS ORDERED: BENZONATATE100 MG PO (19:36)
== END 2018-03-11 20:30 | disposition home or self-care (01) ==
LOC: ER 15:54
DX: R10.13 Epigastric pain (principal); R10.12 Left upper quadrant pain; R10.32 Left lower quadrant pain; I10 Essential (primary) hypertension; I48.91 Unspecified atrial fibrillation; I25.10 Atherosclerotic heart disease of native coronary artery without angina pectoris; E78.5 Hyperlipidemia, unspecified; Z86.718 Personal history of other venous thrombosis and embolism
CPT/HCPCS: 36415; 74176; 80053; 81001; 82150; 83690; 85025; 85610; 85730; 93005; 99284; J2270; J2405; J7030

== ENCOUNTER 2018-08-22 11:39 | Emergency (ER) | payer MEDICARE, OTHER ==
[~2018-08-22] VITALS: Ht 154.9 cm; Wt 61.7 kg
[~2018-08-22 11:39] MED LIST changes: +ALPRAZOLAM0.25 M1 PO; +BENZONATATE100 MG PO; +DIGOXIN125 MCG PO; +DOCUSATE SODIU100 MG PO; +MATZIM LA180 MG PO; +METOPROLOL TART25 MG PO; +PANTOPRAZOLE SO40 MG PO; +PROCHLORPERAZIN10 MG PO; +QUETIAPINE FUMA25 MG PO; +SENSIPAR30 MG PO; +TAMSULOSIN HCL0.4 MG PO; +XARELTO20 MG PO; +ZOFRAN ODT4 MG PO; +ZOLPIDEM TARTRAT5 MG PO
[2018-08-22 12:00] LABS: BASOPHILS % 0.2 % (0.0-1.0); EOSINOPHILS % 0.4 % (0.0-6.0); LYMPHOCYTES # (AUTO) 0.5 (1.0-3.2); LYMPHOCYTES % 11.3 % (18.0-39.1); MEAN CORPUSCULAR HEMOGLOBIN 30.8 pg (28-32); MEAN CORPUSCULAR HGB CONC 33.3 g/dL (31-35); MEAN CORPUSCULAR VOLUME 92.4 fL (81-99); MONOCYTES # (AUTO) 0.4 (0.2-0.8); MONOCYTES % 8.8 % (4.4-11.3); NEUTROPHILS # (AUTO) 3.8 (2.1-6.9); NEUTROPHILS % 78.9 % (38.7-80.0); PLATELET COUNT 127 x10e3/uL (140-360); RED BLOOD COUNT 3.57 x10e6/uL (3.6-5.1); RED CELL DISTRIBUTION WIDTH 14.2 % (11.7-14.4)
[2018-08-22 12:19] LABS: ALANINE AMINOTRANSFERASE 49 IU/L (0-55); ALBUMIN 3.7 g/dL (3.5-5.0); ALBUMIN/GLOBULIN RATIO 1.1 (0.8-2.0); ALKALINE PHOSPHATASE 143 IU/L (40-150); ANION GAP 10.7 mmol/L (8-16); BLOOD UREA NITROGEN 10 mg/dL (7-26); BUN/CREATININE RATIO 12 (6-25); CALCIUM 10.8 mg/dL (8.4-10.2); CARBON DIOXIDE 24 mmol/L (22-29); CHLORIDE 102 mmol/L (98-107); CREATINE KINASE 69 IU/L (29-168); CREATININE, SERUM 0.86 mg/dL (0.57-1.11); EST GLOMERULAR FILTRATION RATE > 60 ML/MIN (60-); GLUCOSE 106 mg/dL (74-118); POTASSIUM 3.7 mmol/L (3.5-5.1); SODIUM 133 mmol/L (136-145)
--- NOTE | 2018-08-22 14:13 | Diagnostic Imaging Report ---
EXAMINATION: CHEST 2 VIEWS INDICATION: Cough COMPARISON: Chest x-ray 05/30/2018, CT chest 05/25/2018 FINDINGS: PA and lateral views TUBES and LINES: Dual-lead pacemaker wires terminate in the right atrium and right ventricle LUNGS: Diffuse pulmonary hyperinflation. Mild central pulmonary vascular prominence, improved compared to previous exam. No interstitial thickening. No mass or confluent infiltrate. PLEURA: Moderate eventration of the left diaphragm is stable. Pleural effusions have resolved. No pneumothorax. HEART AND MEDIASTINUM: Mild stable cardiomegaly. BONES AND SOFT TISSUES: Diffuse demineralization. No focal osseous lesions. Soft tissues are unremarkable. UPPER ABDOMEN: No free air under the diaphragm. IMPRESSION: 1. Stable eventration of the left diaphragm. Resolved pleural effusions. 2. Diffuse pulmonary hyperinflation consistent with small airways disease. No infiltrates. 3. Stable cardiomegaly and central vascular prominence suggestive of pulmonary venous hypertension. No doretha pulmonary edema. Signed by: Dr. Elton Herzog MD on 08/22/2018 2:10 PM
[2018-08-22] MEDS ORDERED: LEVAQUIN500 MG PO (14:41)
[2018-08-22 15:13] VITALS: BP 169/89
== END 2018-08-22 15:31 | disposition home or self-care (01) ==
LOC: ER 11:39
DX: R05 Cough (principal); B34.9 Viral infection, unspecified
CPT/HCPCS: 36415; 71046; 80053; 82550; 82553; 84484; 85025; 87400; 99284

== ENCOUNTER 2018-12-01 22:41 | Emergency (ER) | payer MEDICARE, OTHER ==
[~2018-12-01] VITALS: Ht 154.9 cm; Wt 61.7 kg
[2018-12-01] MEDS ORDERED: ACETAMINOPHEN/CODEINE 300MG - 30MG TAB PO ONE (23:00)
[2018-12-01 23:13] LABS: INFLUENZAE A&B ANTIGEN (RAPID) NEGATIVE (NEGATIVE); STREPTOCOCCUS GRP A ANTIGEN NEGATIVE (NEGATIVE)
--- NOTE | 2018-12-01 23:48 | Diagnostic Imaging Report ---
EXAMINATION: CHEST 2 VIEWS INDICATION: Cough, congestion COMPARISON: Chest x-ray 08/22/2018 FINDINGS: PA and lateral views TUBES and LINES: Left chest wall dual-lead cardiac pacer with leads overlying the right atrium and right ventricle. LUNGS: Mild left basilar atelectasis secondary to eventration of the left hemidiaphragm. There is no evidence of pneumonia or pulmonary edema. PLEURA: No pleural effusion or pneumothorax. HEART AND MEDIASTINUM: Stable mild enlargement of the cardiac silhouette. There are atherosclerotic calcifications within the aorta. BONES AND SOFT TISSUES: There are degenerative changes in the thoracic spine. Median sternotomy wires. Soft tissues are unremarkable. UPPER ABDOMEN: No free air under the diaphragm. There are cholecystectomy clips. IMPRESSION: No acute thoracic abnormality. Signed by: DR. Alex Wasserman MD on 12/01/2018 11:45 PM
[2018-12-02] MEDS ORDERED: TYLENOL WITH C1 EACH PO (00:12)
[2018-12-02] MEDS ORDERED: LEVAQUIN500 MG PO (00:12)
== END 2018-12-02 00:24 | disposition home or self-care (01) ==
LOC: ER 22:41
DX: R05 Cough (principal); J31.0 Chronic rhinitis
CPT/HCPCS: 71046; 83518; 87070; 87400; 93005; 99283

== ENCOUNTER 2019-01-06 21:01 | Inpatient (IN) | payer MEDICARE, OTHER ==
[~2019-01-06] VITALS: Ht 121.9 cm; Wt 66.7 kg
[2019-01-06] MEDS ORDERED: NITROGLYCERIN 2% OINT 1 GM PKT TOP ONE (21:30)
[2019-01-06 21:58] LABS: BASOPHILS % 0.3 % (0.0-1.0); EOSINOPHILS # (AUTO) 0.1 (0.0-0.4); HEMATOCRIT 36.3 % (34.2-44.1); HEMOGLOBIN 11.9 g/dL (12.0-16.0); LYMPHOCYTES # (AUTO) 1.4 (1.0-3.2); LYMPHOCYTES % 20.3 % (18.0-39.1); MEAN CORPUSCULAR HEMOGLOBIN 30.7 pg (28-32); MEAN CORPUSCULAR HGB CONC 32.8 g/dL (31-35); MEAN CORPUSCULAR VOLUME 93.6 fL (81-99); MONOCYTES # (AUTO) 0.4 (0.2-0.8); MONOCYTES % 6.5 % (4.4-11.3); NEUTROPHILS # (AUTO) 4.8 (2.1-6.9); NEUTROPHILS % 71.6 % (38.7-80.0); PLATELET COUNT 141 x10e3/uL (140-360); RED BLOOD COUNT 3.88 x10e6/uL (3.6-5.1); RED CELL DISTRIBUTION WIDTH 13.6 % (11.7-14.4)
[2019-01-06 22:12] LABS: INR 1.05; PROTHROMBIN TIME 14.2 seconds (11.9-14.5)
[2019-01-06 22:13] LABS: PARTIAL THROMBOPLASTIN TIME 30.9 seconds (23.8-35.5)
[2019-01-06 22:22] LABS: ALBUMIN 3.5 g/dL (3.5-5.0); ALBUMIN/GLOBULIN RATIO 1.2 (0.8-2.0); ANION GAP 10.1 mmol/L (8-16); CALCIUM 10.6 mg/dL (8.4-10.2); CREATININE, SERUM 0.91 mg/dL (0.57-1.11); MAGNESIUM 2.1 MG/DL (1.3-2.1); POTASSIUM 4.1 mmol/L (3.5-5.1)
--- NOTE | 2019-01-06 22:22 | Diagnostic Imaging Report ---
EXAMINATION: CHEST SINGLE (PORTABLE) INDICATION: ^SOB, COUGH, ? CHF COMPARISON: Chest x-ray 12/01/2018. FINDINGS: AP view TUBES and LINES: Left-sided pacemaker with 2 intact wires. Median sternotomy wires are present. LUNGS: Lungs are hypo-inflated with emphysematous changes. Chronic lung changes. Left basilar atelectasis and/or pneumonia. PLEURA: No pleural effusion or pneumothorax. HEART AND MEDIASTINUM: The cardiomediastinal silhouette is unremarkable. BONES AND SOFT TISSUES: No acute osseous lesion. Soft tissues are unremarkable. UPPER ABDOMEN: No free air under the diaphragm. IMPRESSION: Left basilar atelectasis and/or consolidation. Signed by: Dr. Stefan Melton M.D. on 01/06/2019 10:18 PM
[2019-01-06 22:24] LABS: B-TYPE NATRIURETIC PEPTIDE2 89.4 pg/mL (0-100)
[2019-01-06] MEDS ORDERED: AZITHROMYCIN 500MG/NS 250 ML 250 ML IV SCH (22:45)
[2019-01-06] MEDS ORDERED: ALBUTEROL/IPRATROPIUM 3 ML NEB NEB ONE (22:45)
[2019-01-06] MEDS ORDERED: SODIUM CHLORIDE 0.9% 250ML 250 ML ONE (23:08)
[2019-01-06] MEDS ORDERED: ONDANSETRON HCL INJ 2MG/ML 2ML 2 MG/ML VIAL IV PRN (23:15)
[2019-01-06] MEDS ORDERED: MORPHINE SULFATE INJ 4 MG/ML INJ 1ML IV PRN (23:15)
[2019-01-06] MEDS: CEFTRIAXONE SOD 1 GM/NS 50 ML 50 ML IV SCH (23:23)
[2019-01-06] MEDS: ACETAMINOPHEN 325 MG TAB PO PRN (23:54)
[2019-01-07] MEDS: NITROGLYCERIN 2% OINT 1 GM PKT TOP SCH ×4 (00:02→18:16)
[2019-01-07 00:08] LABS: ABG HCO3 23 mmol/L (23-28); ABG PCO2 42 mmHg (41-51); ABG PH 7.35 (7.31-7.41); ABG PO2 78 mmHg (80-105)
[2019-01-07 00:20] LABS: BILIRUBIN,URINE NEGATIVE (NEGATIVE); CLARITY,URINE CLEAR (CLEAR); COLOR,URINE YELLOW (YELLOW); KETONES,URINE NEGATIVE (NEGATIVE); LEUKOCYTE ESTERASE ,URINE NEGATIVE (NEGATIVE); NITRITE,URINE NEGATIVE (NEGATIVE); PROTEIN,URINE DIPSTICK NEGATIVE (NEGATIVE); URINE UROBILINOGEN 0.2 mg/dL (0.2 - 1)
[2019-01-07 00:21] LABS: BACTERIA,URINE MODERATE /HPF; EPITHELIAL CELLS,URINE FEW /LPF
[2019-01-07 00:22] LABS: RBC,URINE 21-50 /HPF (0-5)
[2019-01-07] MEDS ORDERED: ENALAPRILAT IV INJ 1.25 MG/ML VIAL IV STA (02:50)
[2019-01-07] MEDS ORDERED: FUROSEMIDE INJ 10 MG/ML 4 ML VIAL IV ONE (03:00)
[2019-01-07] MEDS ORDERED: HYDROCODONE/APAP 5MG-325MG TAB ONE (03:13)
[2019-01-07] MEDS ORDERED: HYDROCODONE/APAP 5MG-325MG TAB PO ONE (03:15)
[2019-01-07] MEDS ORDERED: FUROSEMIDE INJ 10 MG/ML 4 ML VIAL ONE (06:06)
[2019-01-07] MEDS: ACETAMINOPHEN 325 MG TAB PO PRN (06:40)
[2019-01-07] MEDS: ALBUTEROL/IPRATROPIUM 3 ML NEB NEB SCH ×5 (07:34→23:00)
[2019-01-07 07:47] LABS: BASOPHILS % 0.3 % (0.0-1.0); EOSINOPHILS # (AUTO) 0.1 (0.0-0.4); EOSINOPHILS % 1.2 % (0.0-6.0); HEMATOCRIT 41.1 % (34.2-44.1); HEMOGLOBIN 13.1 g/dL (12.0-16.0); LYMPHOCYTES # (AUTO) 0.5 (1.0-3.2); LYMPHOCYTES % 4.7 % (18.0-39.1); MEAN CORPUSCULAR HEMOGLOBIN 30.8 pg (28-32); MEAN CORPUSCULAR HGB CONC 31.9 g/dL (31-35); MEAN CORPUSCULAR VOLUME 96.7 fL (81-99); MONOCYTES # (AUTO) 0.5 (0.2-0.8); MONOCYTES % 5.4 % (4.4-11.3); NEUTROPHILS # (AUTO) 8.7 (2.1-6.9); NEUTROPHILS % 87.7 % (38.7-80.0); PLATELET COUNT 114 x10e3/uL (140-360); RED BLOOD COUNT 4.25 x10e6/uL (3.6-5.1); RED CELL DISTRIBUTION WIDTH 13.5 % (11.7-14.4)
[2019-01-07 08:01] LABS: ALANINE AMINOTRANSFERASE 23 IU/L (0-55); ALBUMIN 3.7 g/dL (3.5-5.0); ALBUMIN/GLOBULIN RATIO 1.1 (0.8-2.0); ALKALINE PHOSPHATASE 119 IU/L (40-150); ANION GAP 12.7 mmol/L (8-16); BLOOD UREA NITROGEN 13 mg/dL (7-26); BUN/CREATININE RATIO 15 (6-25); CALCIUM 10.4 mg/dL (8.4-10.2); CARBON DIOXIDE 21 mmol/L (22-29); CHLORIDE 104 mmol/L (98-107); CHOL/HDL RATIO 1.5 (3.0-3.6); CHOLESTEROL 112 MD/DL (0-199); CREATININE, SERUM 0.87 mg/dL (0.57-1.11); EST GLOMERULAR FILTRATION RATE > 60 ML/MIN (60-); GLUCOSE 144 mg/dL (74-118); HDL CHOLESTEROL 73 MG/DL (40-60); LDL CHOLESTEROL 32 MG/DL (60-130); POTASSIUM 3.7 mmol/L (3.5-5.1); SODIUM 134 mmol/L (136-145); TRIGLYCERIDES 33 MG/DL (0-149)
[2019-01-07] MEDS ORDERED: AZITHROMYCIN 500MG/NS 250 ML 250 ML IV SCH (11:00)
[2019-01-07] MEDS: CEFTRIAXONE SOD 1 GM/NS 50 ML 50 ML IV SCH ×2 (11:04→22:19)
[2019-01-07 13:45] VITALS: BP_SYST 105; BP_SYST 124; BP_DIAS 56; BP_DIAS 59
[2019-01-07] MEDS ORDERED: ONDANSETRON HCL 4 MG ORAL DISINTEGRATING TAB PO PRN (13:45)
--- NOTE | 2019-01-07 13:45 | NUR ---
PATIENT RECEIVED FROM ER PER STRETCHER. ALERT AND VERBALLY RESPONSIVE, [place] SPEAKING MOSTLY. DENIED PAIN AT THIS TIME. SKIN WARM AND DRY TO TOUCH, RESPIRATION EVEN AND UNLABORED WITH O2 AT 2L VIA N/C. ABDOMEN SOFT AND NON DISTENDED. +2 EDEMA NOTED TO LOWER POSITION. BRUISES TO BOTH ARMS. PATIENT ASSISTED TO THE RESTROOM AND BACK TO BED, AMBULATED WITH WALKER. ORIENTED TO SURROUNDINGS. BED IN LOWER POSITION AND LOCKED. CALL LIGHT AT REACH, INSTRUCTED TO CALL FOR ASSISTANCE NEEDED WITH RETURN DEMONSTRATION. BED ALARM ACTIVATED.
[2019-01-07 13:55] VITALS: BP 124/59
[2019-01-07 15:15] VITALS: BP 140/65
[2019-01-07 15:43] LABS: CREATINE KINASE MB 0.7 ng/mL (0-5.0)
--- NOTE | 2019-01-07 16:23 | NUR ---
PRIMARY CARE PHYSICIAN: Dr. Chandrika Escoto. CHIEF COMPLAINT: Shortness of breath and cough. HISTORY OF PRESENT ILLNESS: This 83-year-old woman with hx PNA and Diastolic CHF, now with sob and cough; Xray negative for PNA. admitted for mgmt of bronchitis. PAST MEDICAL HISTORY: Pulmonary edema, bilateral pleural effusion, right groin hematoma due to a left heart cath status post evacuation of the hematoma, bilateral leg edema, coronary artery disease with history of bypass, acute kidney injury, thrombocytopenia, chronic bronchitis, diastolic congestive heart failure, hypertension, pneumonia, heart disease, thrombosis, E. coli urinary tract infection, left-sided pneumonia, GERD, osteoporosis, left lower extremity cellulitis, mild tricuspid regurgitation, mild to moderate mitral regurgitation, atrial fibrillation, depression, ambulatory dysfunction. PAST SURGICAL HISTORY: Coronary artery bypass graft in 2012, thyroidectomy in 2004, thrombosis surgery, cholecystectomy, bilateral tubal ligation, EGD/colonoscopy, ablation of atrial fibrillation. ALLERGIES: PER THE ELECTRONIC MEDICAL RECORDS. FAMILY HISTORY: Patient's mother is . She has asthma. Father is . SOCIAL HISTORY: Patient is . She lives with her son. She has 8 children. No alcohol, illicit drugs or cigarettes. MEDICATIONS: Per the electronic medical records. Medications reviewed. REVIEW OF SYSTEMS: no f/c/s/N/V/D/CHUN/vision changes/cp/leg pain/skin rash VITAL SIGNS: Reviewed. PHYSICAL EXAMINATION GENERAL APPEARANCE: A tired-appearing woman resting in bed. HEENT: anicteric CARDIOVASCULAR: Normal S1/S2. LUNGS: mildly coarse breath sounds; no w. ABDOMEN: Soft, nontender, nondistended. EXTREMITIES: No edema or calf tenderness. NEUROLOGICALLY: She is awake, moves all extremities. SKIN: Dry. PSYCHIATRIC: Flat affect. LABS/MEDS: Reviewed. ASSESSMENT Acute bronchitis- flu negative;ceftraixone/azithromycin/steroids/nebs/loratadine UTI- ceftriaxone Anxiety disorder.- home meds CAD with hx bypass- BB/asa A.fib- amio/xarelto Diastolic congestive heart failure- lasix HTN- BB GERD- ppi Hypercalcemia- cinacalcet Prop: scd; pepcid Dispo: abx; nebs; steroids; monitor closely; Chandrika Escoto MD, PhD.
[2019-01-07] MEDS ORDERED: PROCHLORPERAZINE MALEATE TAB 10 MG TAB PO PRN (16:30)
[2019-01-07] MEDS ORDERED: ALPRAZOLAM 0.25 MG TAB PO PRN (16:30)
--- NOTE | 2019-01-07 16:40 | NUR ---
SPOKE WITH MD REGARDING REDNESS TO GROIN, NEW ORDER RECEIVED.
[2019-01-07] MEDS: ISOSORBIDE MONONITRATE 30 MG TAB CR PO SCH (17:37)
[2019-01-07] MEDS: METOPROLOL TARTRATE 25 MG TAB PO SCH (17:37)
[2019-01-07] MEDS: RIVAROXABAN 20 MG TABLET PO SCH (17:37)
[2019-01-07] MEDS: AMIODARONE HCL 200 MG TAB PO SCH (18:15)
[2019-01-07] MEDS: TAMSULOSIN HCL 0.4 MG CAP PO SCH (18:15)
[2019-01-07] MEDS: LISINOPRIL 2.5 MG TAB PO SCH (18:15)
[2019-01-07] MEDS: CINACALCET 30 MG TAB PO SCH (18:16)
--- NOTE | 2019-01-07 19:15 | NUR ---
patient received awake, alert, lying quietly in bed. no c/o pain noted. 02/2l/nc in use. respirations even and unlabored. pm assessment complete. pm assessment complete. family noted at the bedside. patient/family instructed to call for assistance when needed.
[2019-01-07 19:30] VITALS: BP 84/47
[2019-01-07 20:00] VITALS: BP 84/47
[2019-01-07] MEDS: ZOLPIDEM TARTRATE 5 MG TAB PO SCH (20:42)
[2019-01-07] MEDS: ATORVASTATIN 40 MG TAB PO SCH (20:42)
[2019-01-07] MEDS: AZITHROMYCIN 500MG/NS 250 ML 250 ML IV SCH (20:42)
[2019-01-07] MEDS: MONTELUKAST SODIUM 10 MG TAB PO SCH (20:42)
[2019-01-07] MEDS ORDERED: SODIUM CHLORIDE 0.9% 250ML 250 ML ONE (20:53)
[2019-01-07] MEDS ORDERED: NON-FORMULARY MEDICATION (Zolpidem Tartrate 5 MG) PO SCH (21:00)
[2019-01-07] MEDS ORDERED: ATORVASTATIN 20 MG TAB PO SCH (21:00)
[2019-01-08] VITALS (8 sets, daily range): BP systolic 95–120; BP diastolic 48–56
[2019-01-08] MEDS: ALBUTEROL/IPRATROPIUM 3 ML NEB NEB SCH ×6 (03:11→20:25)
--- NOTE | 2019-01-08 04:40 | NUR ---
patient appears to be resting quietly. no c/o pain noted at throughout the night.
[2019-01-08] MEDS: NITROGLYCERIN 2% OINT 1 GM PKT TOP SCH ×3 (05:27→12:00)
--- NOTE | 2019-01-08 07:16 | NUR ---
PATIENT IN BED RESTING WITH HEAD OF BED ELEVATED, NO RESPIRATORY DISTRESS OBSERVED. REPOSITIONED IN BED . CALL LIGHT AT REACH.
--- NOTE | 2019-01-08 07:20 | NUR ---
IM- progress note O/N; no events REVIEW OF SYSTEMS: no f/c/s/N/V/D/CHUN/vision changes/cp/leg pain/skin rash VITAL SIGNS: Reviewed. PHYSICAL EXAMINATION GENERAL APPEARANCE: A tired-appearing woman resting in bed. HEENT: anicteric CARDIOVASCULAR: Normal S1/S2. LUNGS: mildly coarse breath sounds; no w. ABDOMEN: Soft, nontender, nondistended. EXTREMITIES: No edema or calf tenderness. NEUROLOGICALLY: She is awake, moves all extremities. SKIN: Dry. PSYCHIATRIC: Flat affect. LABS/MEDS: Reviewed. ASSESSMENT Acute bronchitis- flu negative;ceftraixone/azithromycin/steroids/nebs/loratadine UTI- ceftriaxone Anxiety disorder.- home meds CAD with hx bypass- BB/asa A.fib- amio/xarelto Diastolic congestive heart failure- lasix HTN- BB GERD- ppi Hypercalcemia- cinacalcet Prop: scd; pepcid Dispo: abx; nebs; steroids; monitor closely; Chandrika Escoto MD, PhD.
[2019-01-08] MEDS: PANTOPRAZOLE SOD 40 MG TABEC PO SCH (07:56)
[2019-01-08] MEDS: LISINOPRIL 2.5 MG TAB PO SCH (09:00)
[2019-01-08] MEDS: METOPROLOL TARTRATE 25 MG TAB PO SCH ×2 (09:00→17:00)
[2019-01-08] MEDS: LORATADINE 10 MG TAB PO SCH (09:28)
[2019-01-08] MEDS: FUROSEMIDE 40 MG TAB PO SCH (09:28)
[2019-01-08] MEDS: ISOSORBIDE MONONITRATE 30 MG TAB CR PO SCH (09:28)
[2019-01-08] MEDS: GUAIFENESIN/DEXTROMETHORPHAN LIQD 5 ML UDC NG SCH ×3 (09:28→21:32)
[2019-01-08] MEDS: TAMSULOSIN HCL 0.4 MG CAP PO SCH (09:28)
[2019-01-08] MEDS: AMIODARONE HCL 200 MG TAB PO SCH (09:28)
[2019-01-08] MEDS: BENZONATATE 100 MG CAP PO SCH ×3 (09:29→21:32)
[2019-01-08] MEDS: CINACALCET 30 MG TAB PO SCH (09:29)
[2019-01-08] MEDS: CEFTRIAXONE SOD 1 GM/NS 50 ML 50 ML IV SCH ×2 (10:45→22:42)
[2019-01-08] MEDS: NYSTATIN 15 GM POWDER UD BTL TOP SCH (11:06)
--- NOTE | 2019-01-08 11:38 | NUR ---
PATIENT ASSISTED TO THE RESTROOM, BACK IN BED. ALL PERSONAL ITEMS CLOSE TO PATIENT, CALL LIGHT AT REACH.
--- NOTE | 2019-01-08 13:25 | NUR ---
PATIENT IN BED RESTING WITH EYES CLOSED. ALL PERSONAL ITEMS CLOSE TO PATIENT. BED IN LOWER POSITION, CALL LIGHT AT REACH.
[2019-01-08] MEDS: RIVAROXABAN 20 MG TABLET PO SCH (17:34)
[2019-01-08] MEDS: OLOPATADINE 5 ML BTL OP SCH (17:34)
--- NOTE | 2019-01-08 19:00 | NUR ---
patient received awake, alert, lying quietly in bed. no c/o pain noted. respirations even and unlabored. 3l/nc in use. pm assessment complete. family noted at the bedside. patient instructed to call for assistance when needed.
[2019-01-08] MEDS: ATORVASTATIN 40 MG TAB PO SCH (21:00)
[2019-01-08] MEDS: ZOLPIDEM TARTRATE 5 MG TAB PO SCH (21:00)
[2019-01-08] MEDS: MONTELUKAST SODIUM 10 MG TAB PO SCH (21:00)
[2019-01-08] MEDS: AZITHROMYCIN 500MG/NS 250 ML 250 ML IV SCH (21:00)
--- NOTE | 2019-01-08 21:00 | NUR ---
new iv #22 placed to left forearm x 1 stick. previous iv d/c'd due to redness/swelling.
[2019-01-09] VITALS (8 sets, daily range): BP systolic 99–167; BP diastolic 54–76
[2019-01-09] MEDS: ALBUTEROL/IPRATROPIUM 3 ML NEB NEB SCH ×5 (03:00→19:45)
[2019-01-09] MEDS: NITROGLYCERIN 2% OINT 1 GM PKT TOP SCH ×4 (05:26→16:15)
[2019-01-09] MEDS: BENZONATATE 100 MG CAP PO SCH ×3 (05:26→21:35)
[2019-01-09] MEDS: GUAIFENESIN/DEXTROMETHORPHAN LIQD 5 ML UDC NG SCH ×3 (05:26→21:35)
--- NOTE | 2019-01-09 06:28 | NUR ---
IM- progress note O/N; no events REVIEW OF SYSTEMS: no f/c/s/N/V/D/CHUN/vision changes/cp/leg pain/skin rash VITAL SIGNS: Reviewed. PHYSICAL EXAMINATION GENERAL APPEARANCE: A tired-appearing woman resting in bed. HEENT: anicteric CARDIOVASCULAR: Normal S1/S2. LUNGS: mildly coarse breath sounds; no w. ABDOMEN: Soft, nontender, nondistended. EXTREMITIES: No edema or calf tenderness. NEUROLOGICALLY: She is awake, moves all extremities. SKIN: Dry. PSYCHIATRIC: Flat affect. LABS/MEDS: Reviewed. ASSESSMENT Acute bronchitis- flu negative;ceftraixone/azithromycin/steroids/nebs/loratadine UTI- ceftriaxone Anxiety disorder.- home meds CAD with hx bypass- BB/asa A.fib- amio/xarelto Diastolic congestive heart failure- lasix HTN- BB GERD- ppi Hypercalcemia- cinacalcet Prop: scd; pepcid Dispo: abx; nebs; steroids; monitor closely; 01/09 supportive care; Chandrika Escoto MD, PhD.
--- NOTE | 2019-01-09 08:35 | NUR ---
Pt received resting in bed. Alert and oriented x 4 but Syriac Speaking only. On 2L NC. Pt Oriented to staff and surroundings, advised to press call mathew if help needed. Emotional support given. All meds given as ordered. Will monitor
[2019-01-09] MEDS: TAMSULOSIN HCL 0.4 MG CAP PO SCH (08:36)
[2019-01-09] MEDS: AMIODARONE HCL 200 MG TAB PO SCH (08:36)
[2019-01-09] MEDS: LORATADINE 10 MG TAB PO SCH (08:36)
[2019-01-09] MEDS: PANTOPRAZOLE SOD 40 MG TABEC PO SCH (08:36)
[2019-01-09] MEDS: OLOPATADINE 5 ML BTL OP SCH ×2 (08:36→18:38)
[2019-01-09] MEDS: ISOSORBIDE MONONITRATE 30 MG TAB CR PO SCH (08:37)
[2019-01-09] MEDS: CINACALCET 30 MG TAB PO SCH (08:37)
[2019-01-09] MEDS: NYSTATIN 15 GM POWDER UD BTL TOP SCH (08:37)
[2019-01-09] MEDS: LISINOPRIL 2.5 MG TAB PO SCH (08:37)
[2019-01-09] MEDS: METOPROLOL TARTRATE 25 MG TAB PO SCH ×2 (08:37→16:18)
[2019-01-09] MEDS: FUROSEMIDE 40 MG TAB PO SCH (08:37)
[2019-01-09] MEDS: CEFTRIAXONE SOD 1 GM/NS 50 ML 50 ML IV SCH ×2 (10:45→22:21)
[2019-01-09] MEDS: RIVAROXABAN 20 MG TABLET PO SCH (16:43)
--- NOTE | 2019-01-09 19:00 | NUR ---
patient received awake, alert, lying quietly in bed. no c/o pain noted. pm assessment complete. call mathew placed within reach. patient instructed to call for assistance when needed.
[2019-01-09] MEDS: AZITHROMYCIN 500MG/NS 250 ML 250 ML IV SCH (21:00)
[2019-01-09] MEDS: ZOLPIDEM TARTRATE 5 MG TAB PO SCH (21:00)
[2019-01-09] MEDS: MONTELUKAST SODIUM 10 MG TAB PO SCH (21:00)
[2019-01-09] MEDS: ATORVASTATIN 40 MG TAB PO SCH (21:00)
[2019-01-09] MEDS ORDERED: SODIUM CHLORIDE 0.9% 250ML 250 ML ONE (22:20)
[2019-01-10] VITALS (8 sets, daily range): BP systolic 100–146; BP diastolic 54–74
[2019-01-10] MEDS: ALBUTEROL/IPRATROPIUM 3 ML NEB NEB SCH ×7 (03:30→23:45)
[2019-01-10] MEDS: NITROGLYCERIN 2% OINT 1 GM PKT TOP SCH ×4 (05:13→16:41)
[2019-01-10] MEDS: BENZONATATE 100 MG CAP PO SCH ×3 (05:13→21:42)
[2019-01-10] MEDS: GUAIFENESIN/DEXTROMETHORPHAN LIQD 5 ML UDC NG SCH ×3 (05:13→21:42)
--- NOTE | 2019-01-10 06:36 | NUR ---
IM- progress note O/N; no events REVIEW OF SYSTEMS: no f/c/s/N/V/D/CHUN/vision changes/cp/leg pain/skin rash VITAL SIGNS: Reviewed. PHYSICAL EXAMINATION GENERAL APPEARANCE: A tired-appearing woman resting in bed. HEENT: anicteric CARDIOVASCULAR: Normal S1/S2. LUNGS: mildly coarse breath sounds; no w. ABDOMEN: Soft, nontender, nondistended. EXTREMITIES: No edema or calf tenderness. NEUROLOGICALLY: She is awake, moves all extremities. SKIN: Dry. PSYCHIATRIC: Flat affect. LABS/MEDS: Reviewed. ASSESSMENT Acute bronchitis- flu negative;ceftraixone/azithromycin/steroids/nebs/loratadine UTI- ceftriaxone Anxiety disorder.- home meds CAD with hx bypass- BB/asa A.fib- amio/xarelto Diastolic congestive heart failure- lasix HTN- BB GERD- ppi Hypercalcemia- cinacalcet Prop: scd; pepcid Dispo: abx; nebs; steroids; monitor closely; 01/09 supportive care; 01/10 check labs Chandrika Escoto MD, PhD.
[2019-01-10 07:01] LABS: BASOPHILS % 0.4 % (0.0-1.0); EOSINOPHILS # (AUTO) 0.1 (0.0-0.4); EOSINOPHILS % 1.7 % (0.0-6.0); HEMATOCRIT 32.7 % (34.2-44.1); HEMOGLOBIN 10.9 g/dL (12.0-16.0); LYMPHOCYTES # (AUTO) 1.3 (1.0-3.2); LYMPHOCYTES % 23.7 % (18.0-39.1); MEAN CORPUSCULAR HEMOGLOBIN 30.8 pg (28-32); MEAN CORPUSCULAR HGB CONC 33.3 g/dL (31-35); MEAN CORPUSCULAR VOLUME 92.4 fL (81-99); MONOCYTES # (AUTO) 0.4 (0.2-0.8); MONOCYTES % 6.4 % (4.4-11.3); NEUTROPHILS # (AUTO) 3.7 (2.1-6.9); NEUTROPHILS % 67.4 % (38.7-80.0); PLATELET COUNT 132 x10e3/uL (140-360); RED BLOOD COUNT 3.54 x10e6/uL (3.6-5.1); RED CELL DISTRIBUTION WIDTH 13.1 % (11.7-14.4)
[2019-01-10 07:13] LABS: ANION GAP 8.8 mmol/L (8-16); CALCIUM 9.2 mg/dL (8.4-10.2); CREATININE, SERUM 0.96 mg/dL (0.57-1.11); MAGNESIUM 1.8 MG/DL (1.3-2.1); POTASSIUM 3.8 mmol/L (3.5-5.1)
[2019-01-10] MEDS: TAMSULOSIN HCL 0.4 MG CAP PO SCH (09:24)
[2019-01-10] MEDS: LORATADINE 10 MG TAB PO SCH (09:24)
[2019-01-10] MEDS: PANTOPRAZOLE SOD 40 MG TABEC PO SCH (09:24)
[2019-01-10] MEDS: ISOSORBIDE MONONITRATE 30 MG TAB CR PO SCH (09:24)
[2019-01-10] MEDS: OLOPATADINE 5 ML BTL OP SCH ×2 (09:24→16:40)
[2019-01-10] MEDS: AMIODARONE HCL 200 MG TAB PO SCH (09:24)
[2019-01-10] MEDS: NYSTATIN 15 GM POWDER UD BTL TOP SCH (09:34)
[2019-01-10] MEDS: CINACALCET 30 MG TAB PO SCH (09:34)
[2019-01-10] MEDS: CEFTRIAXONE SOD 1 GM/NS 50 ML 50 ML IV SCH ×2 (09:34→22:22)
[2019-01-10] MEDS: FUROSEMIDE 40 MG TAB PO SCH (09:34)
[2019-01-10] MEDS: LISINOPRIL 2.5 MG TAB PO SCH (12:40)
[2019-01-10] MEDS: METOPROLOL TARTRATE 25 MG TAB PO SCH ×2 (12:40→16:40)
[2019-01-10] MEDS: RIVAROXABAN 20 MG TABLET PO SCH (16:40)
--- NOTE | 2019-01-10 19:15 | NUR ---
patient received awake, alert, sitting up in recliner in room. no c/o pain noted. respirations even and unlabored. pm assessment complete. patient instructed to call for assistance when needed.
[2019-01-10] MEDS: AZITHROMYCIN 500MG/NS 250 ML 250 ML IV SCH (20:43)
[2019-01-10] MEDS: ATORVASTATIN 40 MG TAB PO SCH (20:43)
[2019-01-10] MEDS: ZOLPIDEM TARTRATE 5 MG TAB PO SCH (20:43)
[2019-01-10] MEDS: MONTELUKAST SODIUM 10 MG TAB PO SCH (20:43)
[2019-01-11] VITALS (9 sets, daily range): BP systolic 101–141; BP diastolic 53–68
--- NOTE | 2019-01-11 | NUR ---
patient appears to be resting quietly. respirations even and unlabored. no c/o pain noted.
[2019-01-11] MEDS: ALBUTEROL/IPRATROPIUM 3 ML NEB NEB SCH ×6 (03:00→22:45)
[2019-01-11] MEDS: GUAIFENESIN/DEXTROMETHORPHAN LIQD 5 ML UDC NG SCH ×3 (05:41→20:46)
[2019-01-11] MEDS: BENZONATATE 100 MG CAP PO SCH ×3 (05:41→20:46)
[2019-01-11] MEDS: NITROGLYCERIN 2% OINT 1 GM PKT TOP SCH ×4 (05:58→18:00)
--- NOTE | 2019-01-11 07:18 | NUR ---
PATIENT IN BED RESTING WITH NO S/S OF DISTRESS. DENIED PAIN AT THIS TIME. TELEMETRY BOX IN PLACE. BED IN LOWER POSITION, CALL LIGHT AT REACH.
--- NOTE | 2019-01-11 07:49 | NUR ---
IM- progress note O/N; no events REVIEW OF SYSTEMS: no f/c/s/N/V/D/CHUN/vision changes/cp/leg pain/skin rash VITAL SIGNS: Reviewed. PHYSICAL EXAMINATION GENERAL APPEARANCE: A tired-appearing woman resting in bed. HEENT: anicteric CARDIOVASCULAR: Normal S1/S2. LUNGS: mildly coarse breath sounds; no w. ABDOMEN: Soft, nontender, nondistended. EXTREMITIES: No edema or calf tenderness. NEUROLOGICALLY: She is awake, moves all extremities. SKIN: Dry. PSYCHIATRIC: Flat affect. LABS/MEDS: Reviewed. ASSESSMENT Acute bronchitis- flu negative;ceftraixone/azithromycin/steroids/nebs/loratadine UTI- ceftriaxone Anxiety disorder.- home meds CAD with hx bypass- BB/asa A.fib- amio/xarelto Diastolic congestive heart failure- lasix HTN- BB GERD- ppi Hypercalcemia- cinacalcet Prop: scd; pepcid Dispo: abx; nebs; steroids; monitor closely; 01/09 supportive care; 01/10 check labs 01/11 check renal fn Chandrika Escoto MD, PhD.
[2019-01-11] MEDS: PANTOPRAZOLE SOD 40 MG TABEC PO SCH (08:01)
[2019-01-11 08:53] LABS: ANION GAP 12.5 mmol/L (8-16); CALCIUM 9.4 mg/dL (8.4-10.2); CREATININE, SERUM 0.93 mg/dL (0.57-1.11); POTASSIUM 3.5 mmol/L (3.5-5.1)
[2019-01-11] MEDS: METOPROLOL TARTRATE 25 MG TAB PO SCH ×2 (09:00→17:00)
[2019-01-11] MEDS: AMIODARONE HCL 200 MG TAB PO SCH (09:07)
[2019-01-11] MEDS: LORATADINE 10 MG TAB PO SCH (09:07)
[2019-01-11] MEDS: TAMSULOSIN HCL 0.4 MG CAP PO SCH (09:07)
[2019-01-11] MEDS: NYSTATIN 15 GM POWDER UD BTL TOP SCH (09:08)
[2019-01-11] MEDS: CINACALCET 30 MG TAB PO SCH (09:08)
[2019-01-11] MEDS: ISOSORBIDE MONONITRATE 30 MG TAB CR PO SCH (09:08)
[2019-01-11] MEDS: LISINOPRIL 2.5 MG TAB PO SCH (09:08)
[2019-01-11] MEDS: FUROSEMIDE 40 MG TAB PO SCH (09:08)
[2019-01-11] MEDS: OLOPATADINE 5 ML BTL OP SCH ×2 (10:10→17:14)
[2019-01-11] MEDS: CEFTRIAXONE SOD 1 GM/NS 50 ML 50 ML IV SCH ×2 (10:47→23:30)
--- NOTE | 2019-01-11 11:48 | NUR ---
PATIENT ASSISTED TO THE RESTROOM AND BACK TO BED. SITTING UP IN BED RECEIVING NEB TREATMENT. CALL LIGHT AT REACH.
--- NOTE | 2019-01-11 15:09 | NUR ---
PATIENT ASSISTED WITH SHOWER. BACK TO RECLINING CHAIR. WARM BLANKET PROVIDED. CALL LIGHT AT REACH.
--- NOTE | 2019-01-11 16:16 | NUR ---
Nutrition Screen Note RD Recommendation for Physician: -Continue current diet as ordered Plan of Care: RD following, monitoring for tolerance and adequacy Nutrition reason for involvement: LOS Primary Diagnose(s): acute bronchitis, UTI PMH: PNA, CHF, pulmonary edema, HTN, GERD Ht: 61in Wt: 147lb BMI: 27.8kg/m2 IBW: 105lb RD Assessment: (01/11) Chart reviewed. Labs and meds reviewed. 83yo F, who was admitted for SOB and cough. Indonesian speaking only. Spoke with VINCENT Henning. Pt was eating well without any GI complains. No chewing or swallowing issue reported. 50-75% recorded meal intake. Stable weight per previous medical records within 2018. Will continue to monitor and follow. Current Diet: cardiac diet Malnutrition Evaluation (01/11) The patient does not meet criteria for a specified degree of malnutrition at this time. Will re-evaluate at follow-up as appropriate. Diet Education Needs Assessment: Diet education not indicated. Nutrition Care Level: low Signed: Natasha Dugan, MS, RD, LD
[2019-01-11] MEDS: RIVAROXABAN 20 MG TABLET PO SCH (17:14)
[2019-01-11] MEDS: AZITHROMYCIN 500MG/NS 250 ML 250 ML IV SCH (20:46)
[2019-01-11] MEDS: ATORVASTATIN 40 MG TAB PO SCH (20:46)
[2019-01-11] MEDS: ZOLPIDEM TARTRATE 5 MG TAB PO SCH (20:46)
[2019-01-11] MEDS: MONTELUKAST SODIUM 10 MG TAB PO SCH (20:46)
[2019-01-12] VITALS: BP 130/60
[2019-01-12] MEDS: NITROGLYCERIN 2% OINT 1 GM PKT TOP SCH ×2 (01:36→05:17)
[2019-01-12] MEDS: ALBUTEROL/IPRATROPIUM 3 ML NEB NEB SCH ×3 (02:45→11:19)
[2019-01-12 04:00] VITALS: BP 127/58
[2019-01-12] MEDS: BENZONATATE 100 MG CAP PO SCH (05:16)
[2019-01-12] MEDS: GUAIFENESIN/DEXTROMETHORPHAN LIQD 5 ML UDC NG SCH (05:16)
[2019-01-12 07:15] VITALS: BP 162/74
--- NOTE | 2019-01-12 07:15 | NUR ---
PATIENT ASSISTED TO THE RESTROOM AND BACK TO BED. ALL PERSONAL ITEMS CLOSE TO PATIENT. BED IN LOWER POSITION, CALL LIGHT AT REACH.
[2019-01-12 07:27] VITALS: BP 162/74
[2019-01-12] MEDS: PANTOPRAZOLE SOD 40 MG TABEC PO SCH (07:55)
[2019-01-12] MEDS: AMIODARONE HCL 200 MG TAB PO SCH (09:09)
[2019-01-12] MEDS: LORATADINE 10 MG TAB PO SCH (09:09)
[2019-01-12] MEDS: TAMSULOSIN HCL 0.4 MG CAP PO SCH (09:09)
[2019-01-12] MEDS: LISINOPRIL 2.5 MG TAB PO SCH (09:10)
[2019-01-12] MEDS: NYSTATIN 15 GM POWDER UD BTL TOP SCH (09:10)
[2019-01-12] MEDS: ISOSORBIDE MONONITRATE 30 MG TAB CR PO SCH (09:10)
[2019-01-12] MEDS: CINACALCET 30 MG TAB PO SCH (09:10)
[2019-01-12] MEDS: FUROSEMIDE 40 MG TAB PO SCH (09:10)
[2019-01-12] MEDS: METOPROLOL TARTRATE 25 MG TAB PO SCH (09:10)
[2019-01-12] MEDS: OLOPATADINE 5 ML BTL OP SCH (09:43)
[2019-01-12] MEDS ORDERED: KEFLEX500 MG PO (10:02)
[2019-01-12] MEDS ORDERED: Guaifenesin/Dextromethorphan NG (10:02)
[2019-01-12] MEDS ORDERED: PATANOL5 ML OP (10:02)
[2019-01-12] MEDS ORDERED: TESSALON PERLE100 MG PO (10:02)
[2019-01-12] MEDS ORDERED: ZITHROMAX500 MG PO (10:02)
--- NOTE | 2019-01-12 10:03 | NUR ---
Discharge summary ASSESSMENT Acute bronchitis- flu negative;ceftraixone/azithromycin/steroids/nebs/loratadine UTI- ceftriaxone Anxiety disorder.- home meds CAD with hx bypass- BB/asa A.fib- amio/xarelto Diastolic congestive heart failure- lasix HTN- BB GERD- ppi Hypercalcemia- cinacalcet Prop: scd; pepcid Dispo: abx; nebs; steroids; monitor closely; 01/09 supportive care; 01/10 check labs 01/11 check renal fn d/c home stable f/u pcp 1 week d/c>35mins Chandrika Escoto MD, PhD.
[2019-01-12] MEDS: CEFTRIAXONE SOD 1 GM/NS 50 ML 50 ML IV SCH (10:16)
--- NOTE | 2019-01-12 10:45 | NUR ---
PATIENT OUT OF BED TO RECLINING CHAIR TALKING TO FAMILY MEMBERS VISITING. CALL LIGHT AT REACH.
[2019-01-12 11:10] VITALS: BP 111/56
--- NOTE | 2019-01-12 12:10 | NUR ---
PATIENT DISCHARGED HOME. DISCHARGE INSTRUCTIONS, PRESCRIPTIONS, AND FOLLOW UP GIVEN TO PATIENT AND SON, THEY VERBALIZED UNDERSTANDING. IV TO LEFT HAND REMOVED WITH TIP INTACT. ALL PERSONAL ITEMS TAKEN WITH PATIENT. LEFT UNIT PER WHEEL CHAIR TO FRONT LOBBY IN STABLE CONDITION.
== END 2019-01-12 12:10 | disposition home or self-care (01) | DRG 202 ==
LOC: ER 21:01 → ERHOLD 23:11 → MED/SURG3 01-07 13:34
PROVIDERS: ADMIT Internal Medicine; ATTEND Internal Medicine
DX: J20.9 Acute bronchitis, unspecified (principal); N39.0 Urinary tract infection, site not specified; I50.32 Chronic diastolic (congestive) heart failure; I11.0 Hypertensive heart disease with heart failure; I25.10 Atherosclerotic heart disease of native coronary artery without angina pectoris; Z95.1 Presence of aortocoronary bypass graft; I48.91 Unspecified atrial fibrillation; Z79.01 Long term (current) use of anticoagulants; F41.9 Anxiety disorder, unspecified; K21.9 Gastro-esophageal reflux disease without esophagitis
CPT/HCPCS: 36415; 36600; 71045; 80048; 80053; 80061; 81001; 82550; 82553; 82805; 83605; 83735; 83880; 84484; 85025; 85610; 85730; 87040; 87086; 87400; 93005; 93306; 94640; 99285; J0456; J0696; J1940; J7050

== ENCOUNTER 2019-03-12 10:32 | Emergency (ER) | payer MEDICARE, OTHER ==
[~2019-03-12] VITALS: Ht 124.5 cm; Wt 66.7 kg
[~2019-03-12 10:32] MED LIST changes: +Guaifenesin/Dextromethorphan NG; +KEFLEX500 MG PO; +PATANOL5 ML OP; +TESSALON PERLE100 MG PO; +ZITHROMAX500 MG PO
[2019-03-12] MEDS ORDERED: SODIUM CHLORIDE 0.9% 1000ML 1,000 ML IV STA (10:34)
[2019-03-12] MEDS ORDERED: ONDANSETRON HCL INJ 2MG/ML 2ML 2 MG/ML VIAL IV STA (10:34)
[2019-03-12] MEDS ORDERED: ONDANSETRON HCL INJ 2MG/ML 2ML 2 MG/ML VIAL ONE (10:47)
[2019-03-12] MEDS ORDERED: IPRATROPIUM BROMIDE 0.02% 2.5 ML NEB NEB STA (11:20)
[2019-03-12] MEDS ORDERED: ALBUTEROL SULF 0.083% NEB SOLN 3 ML NEB NEB STA (11:20)
--- NOTE | 2019-03-12 11:25 | NUR ---
PATIENT WITH BLE EDEMA, 1L BOLUS INFUSING SLOWLY AT THIS TIME FOR CLOSE MONITORING. CARLYLE HARRIS MADE AWARE
--- NOTE | 2019-03-12 11:28 | Diagnostic Imaging Report ---
Examination: Single AP view of the chest. COMPARISON: Single view chest 01/06/2019 INDICATION: Abdominal pain DISCUSSION: The lungs are reasonably well inflated with unchanged left hemidiaphragmatic elevation. Unchanged position of left subclavian approach implantable cardiac device body and leads. No new consolidation or pneumothorax. Stable cardiomediastinal contour. No overt pulmonary edema. No acute osseous abnormality. IMPRESSION: No acute cardiopulmonary abnormality. Persistent left hemidiaphragmatic elevation. . Signed by: Dr. Shan Vasques M.D. on 03/12/2019 11:25 AM
[2019-03-12] MEDS ORDERED: ACETAMINOPHEN/CODEINE ELIX 120-12 MG/5 ML UDC PO ONE (11:30)
[2019-03-12] MEDS ORDERED: DIATRIZOATE MEGL/DIATRIZOA SOD 30 ML BTL PO ONE (11:31)
[2019-03-12] MEDS ORDERED: ALBUTEROL SULF 0.5% NEB SOLN 20 ML BTL ONE (11:46)
[2019-03-12] MEDS ORDERED: ALBUTEROL/IPRATROPIUM 3 ML NEB ONE (11:47)
[2019-03-12 12:25] LABS: INR 1.04; PROTHROMBIN TIME 14.1 seconds (11.9-14.5)
[2019-03-12 12:26] LABS: PARTIAL THROMBOPLASTIN TIME 29.9 seconds (23.8-35.5)
[2019-03-12 12:27] LABS: ALANINE AMINOTRANSFERASE 24 IU/L (0-55); ALBUMIN 3.8 g/dL (3.5-5.0); ALBUMIN/GLOBULIN RATIO 1.3 (0.8-2.0); ALKALINE PHOSPHATASE 118 IU/L (40-150); ANION GAP 9.4 mmol/L (8-16); BLOOD UREA NITROGEN 12 mg/dL (7-26); BUN/CREATININE RATIO 13 (6-25); CALCIUM 10.9 mg/dL (8.4-10.2); CARBON DIOXIDE 28 mmol/L (22-29); CHLORIDE 106 mmol/L (98-107); CREATINE KINASE 191 IU/L (29-168); CREATININE, SERUM 0.91 mg/dL (0.57-1.11); EST GLOMERULAR FILTRATION RATE 59 ML/MIN (60-); GLUCOSE 85 mg/dL (74-118); LIPASE 49 U/L (8-78); POTASSIUM 4.4 mmol/L (3.5-5.1); SODIUM 139 mmol/L (136-145)
[2019-03-12 12:41] LABS: BASOPHILS % 0.3 % (0.0-1.0); EOSINOPHILS % 0.8 % (0.0-6.0); HEMATOCRIT 34.6 % (34.2-44.1); HEMOGLOBIN 11.7 g/dL (12.0-16.0); LYMPHOCYTES # (AUTO) 0.9 (1.0-3.2); LYMPHOCYTES % 23.4 % (18.0-39.1); MEAN CORPUSCULAR HEMOGLOBIN 30.6 pg (28-32); MEAN CORPUSCULAR HGB CONC 33.8 g/dL (31-35); MEAN CORPUSCULAR VOLUME 90.6 fL (81-99); MONOCYTES # (AUTO) 0.4 (0.2-0.8); MONOCYTES % 9.9 % (4.4-11.3); NEUTROPHILS # (AUTO) 2.4 (2.1-6.9); NEUTROPHILS % 65.3 % (38.7-80.0); PLATELET COUNT 134 x10e3/uL (140-360); RED BLOOD COUNT 3.82 x10e6/uL (3.6-5.1); RED CELL DISTRIBUTION WIDTH 13.4 % (11.7-14.4)
[2019-03-12 12:57] LABS: BILIRUBIN,URINE NEGATIVE (NEGATIVE); CLARITY,URINE CLEAR (CLEAR); COLOR,URINE YELLOW (YELLOW); KETONES,URINE NEGATIVE (NEGATIVE); LEUKOCYTE ESTERASE ,URINE NEGATIVE (NEGATIVE); NITRITE,URINE NEGATIVE (NEGATIVE); PROTEIN,URINE DIPSTICK NEGATIVE (NEGATIVE); URINE UROBILINOGEN 0.2 mg/dL (0.2 - 1)
[2019-03-12 13:21] LABS: BACTERIA,URINE FEW /HPF
[2019-03-12] MEDS ORDERED: SODIUM CHLORIDE 0.9% 50ML 50 ML ONE ×2 (13:50→13:52)
[2019-03-12] MEDS ORDERED: IOPAMIDOL 370 MG/ML 200 ML INFUS..BTL INJ ONE ×2 (13:51→13:52)
--- NOTE | 2019-03-12 14:35 | Diagnostic Imaging Report ---
EXAMINATION: CT of the abdomen and pelvis with contrast. TECHNIQUE: Spiral CT images of the abdomen and pelvis were performed from the lung bases to the lesser trochanters after the intravenous administration of 100 cc Isovue-370. Coronal and sagittal reformatted images were obtained. COMPARISON: None. CLINICAL HISTORY:Abdominal pain, concern for small bowel obstruction or diverticulitis. DISCUSSION: ABDOMEN/PELVIS: LOWER THORAX:Partially visualized groundglass nodules laterally within the right middle lobe (series 2 image 1). bandlike atelectasis in the lingula and left lower lobe. HEPATOBILIARY: Calcified granuloma segment 5. Mild intrahepatic biliary ductal dilatation status post cholecystectomy. No additional focal hepatic lesion. SPLEEN: No splenomegaly. PANCREAS: No focal masses or ductal dilatation. ADRENALS: No adrenal nodules. KIDNEYS/URETERS: Subcentimeter hypoattenuating lesions within both kidneys, too small to further characterize but likely to represent small cysts. Bilateral extrarenal pelves. No hydronephrosis. PELVIC ORGANS/BLADDER: The urinary bladder is incompletely distended but otherwise unremarkable. The uterus is anteflexed and appears normal. Dystrophic left ovarian calcification. No adnexal mass. PERITONEUM/RETROPERITONEUM: No ascites. No pneumoperitoneum. LYMPH NODES: No pelvic sidewall, retroperitoneal, or mesenteric lymphadenopathy. VESSELS: Atherosclerotic calcification of the abdominal aorta, major branch vessels, and iliac arterial systems without aneurysmal dilatation. Portal vein, splenic vein, and central superior mesenteric vein are patent. GI TRACT: The large bowel shows no distention or wall thickening. Scattered sigmoid diverticula without wall thickening or inflammation. Gas and fecal material are noted throughout. The appendix is not identified. No right lower quadrant inflammation. The stomach is collapsed with prominent rugal folds. No small bowel dilatation to suggest obstruction. BONES AND SOFT TISSUE: Diffuse osteopenia. No osseous destructive lesions. Degenerative disc changes and facet arthropathy of the lumbar spine. Small fat-containing left inguinal hernia. IMPRESSION: No acute intra-abdominal or pelvic CT abnormalities. Scattered sigmoid diverticula without evidence of diverticulitis. Mild biliary dilatation is likely a consequence of cholecystectomy. Correlation with serum bilirubin is suggested. Groundglass nodules partially visualized in the right middle lobe may be seen in the setting of aspiration or atypical infection. Signed by: Dr. Shan Vasques M.D. on 03/12/2019 2:32 PM
[2019-03-12] MEDS ORDERED: TESSALON PERLE100 MG PO (15:09)
[2019-03-12 15:26] VITALS: BP 192/81
== END 2019-03-12 15:53 | disposition home or self-care (01) ==
LOC: ER 10:34
DX: R10.12 Left upper quadrant pain (principal); R11.0 Nausea; R05 Cough; J06.9 Acute upper respiratory infection, unspecified; I10 Essential (primary) hypertension; I25.10 Atherosclerotic heart disease of native coronary artery without angina pectoris; I48.91 Unspecified atrial fibrillation; K21.9 Gastro-esophageal reflux disease without esophagitis; Z95.810 Presence of automatic (implantable) cardiac defibrillator
CPT/HCPCS: 36415; 71045; 74177; 80053; 81001; 82550; 82553; 83690; 83880; 84484; 85025; 85610; 85730; 87086; 87400; 93005; 99284; J2405; J7030; Q9967

== ENCOUNTER 2019-03-26 19:49 | Inpatient (IN) | payer MEDICARE, OTHER ==
[~2019-03-26] VITALS: Ht 124.5 cm; Wt 65.8 kg
[2019-03-26] MEDS ORDERED: SODIUM CHLORIDE 0.9% 1000ML 1,000 ML IV STA ×2 (21:00→22:51)
[2019-03-26] MEDS ORDERED: FAMOTIDINE 20 MG/2 ML VIAL IV NR ×2 (21:00→23:00)
[2019-03-26] MEDS ORDERED: ONDANSETRON HCL INJ 2MG/ML 2ML 2 MG/ML VIAL IV NR ×2 (21:00→23:00)
[2019-03-26] MEDS ORDERED: ENALAPRILAT IV INJ 1.25 MG/ML VIAL IV NR ×2 (21:00→23:00)
[2019-03-26] MEDS ORDERED: MORPHINE SULFATE INJ 4 MG/ML INJ 1ML IV NR ×2 (21:00→23:00)
[2019-03-26] MEDS ORDERED: ACETAMINOPHEN 325 MG TAB PO NR (21:00)
[2019-03-26] MEDS ORDERED: DIATRIZOATE MEGL/DIATRIZOA SOD 30 ML BTL PO ONE (21:12)
[2019-03-26 23:13] LABS: BILIRUBIN,URINE NEGATIVE (NEGATIVE); CLARITY,URINE CLOUDY (CLEAR); COLOR,URINE YELLOW (YELLOW); KETONES,URINE NEGATIVE (NEGATIVE); LEUKOCYTE ESTERASE ,URINE SMALL (NEGATIVE); NITRITE,URINE NEGATIVE (NEGATIVE); PROTEIN,URINE DIPSTICK TRACE (NEGATIVE)
[2019-03-26 23:22] LABS: BACTERIA,URINE MANY /HPF; EPITHELIAL CELLS,URINE FEW /LPF; MUCUS,URINE FEW (RARE); RBC,URINE 21-50 /HPF (0-5); TRANSITIONAL EPI CELLS,URINE FEW; WBC,URINE (MAN) >50 /HPF (0-5)
[2019-03-26 23:23] LABS: URINE UROBILINOGEN 8 mg/dL (0.2 - 1)
[2019-03-26] MEDS ORDERED: CEFTRIAXONE SOD 1 GM VIAL IV ONE (23:45)
[2019-03-27] VITALS (7 sets, daily range): BP systolic 117–173; BP diastolic 56–77
[2019-03-27 00:25] LABS: BASOPHILS % 0.2 % (0.0-1.0); EOSINOPHILS % 0.2 % (0.0-6.0); HEMATOCRIT 28.8 % (34.2-44.1); HEMOGLOBIN 9.7 g/dL (12.0-16.0); LYMPHOCYTES # (AUTO) 0.8 (1.0-3.2); LYMPHOCYTES % 6.5 % (18.0-39.1); MEAN CORPUSCULAR HEMOGLOBIN 30.4 pg (28-32); MEAN CORPUSCULAR HGB CONC 33.7 g/dL (31-35); MEAN CORPUSCULAR VOLUME 90.3 fL (81-99); MONOCYTES # (AUTO) 0.8 (0.2-0.8); MONOCYTES % 6.2 % (4.4-11.3); NEUTROPHILS # (AUTO) 10.9 (2.1-6.9); NEUTROPHILS % 86.4 % (38.7-80.0); PLATELET COUNT 253 x10e3/uL (140-360); RED BLOOD COUNT 3.19 x10e6/uL (3.6-5.1); RED CELL DISTRIBUTION WIDTH 14.6 % (11.7-14.4)
[2019-03-27 00:42] LABS: ALANINE AMINOTRANSFERASE 17 IU/L (0-55); ALBUMIN 3.4 g/dL (3.5-5.0); ALKALINE PHOSPHATASE 111 IU/L (40-150); BLOOD UREA NITROGEN 9 mg/dL (7-26); BUN/CREATININE RATIO 11 (6-25); CALCIUM 10.4 mg/dL (8.4-10.2); CARBON DIOXIDE 23 mmol/L (22-29); CHLORIDE 94 mmol/L (98-107); CREATININE, SERUM 0.81 mg/dL (0.57-1.11); EST GLOMERULAR FILTRATION RATE > 60 ML/MIN (60-); GLUCOSE 104 mg/dL (74-118); SODIUM 127 mmol/L (136-145)
[2019-03-27] MEDS ORDERED: LACTULOSE SYRUP 20 GM/30 ML UDC PO PRN (01:30)
[2019-03-27] MEDS ORDERED: ACETAMINOPHEN 325 MG TAB PO PRN (01:30)
[2019-03-27] MEDS ORDERED: DIPHENHYDRAMINE HCL INJ 50 MG/ML VIAL IV PRN (01:30)
--- NOTE | 2019-03-27 01:40 | Diagnostic Imaging Report ---
CT Abdomen And Pelvis Without IV Contrast INDICATION: Left side abdominal pain, recent removal of hematoma drain TECHNIQUE: 5 mm collimation axial images obtained from the diaphragm to the level of the pubic symphysis without nonionic intravenous contrast. Oral contrast was administered. RADIATION DOSE: Total DLP: 401.26 mGy*cm Estimated effective dose: (DLP x 0.015 x size factor) mSv CTDIvol has been reviewed. It is below the limits set by the Radiation Protocol Committee (RPC). Dose reduction techniques used: Automated exposure control, adjustment of the mAs and/or kVp according to patient size, standardized low-dose protocol, and/or iterative reconstruction technique. COMPARISON: CT abdomen/pelvis 03/12/2019. ABDOMEN FINDINGS: Lung Bases: Diffuse hyperinflation consistent with COPD. There is bibasilar atelectasis. Pacer/fibrillator wires in the right atrium and right ventricle are stable. There is mild cardiomegaly. No pericardial or pleural effusions.. Liver: Normal in attenuation with punctate calcified granulomata. Gallbladder: Absent. No ductal dilatation. Pancreas: Atrophic without mass or ductal dilatation. Spleen: Normal in attenuation and size without mass. Adrenal Glands: No evidence for mass. Kidneys: Right Kidney: No renal calculus. Cortical lesions identified on previous exam are poorly visualized on this study. No hydronephrosis. Left Kidney: No renal calculus. No cortical mass or hydronephrosis. Lymph Nodes: No enlarged abdominal or periaortic lymph nodes.. Aorta: Normal in diameter with scattered calcifications PELVIS FINDINGS: Bowel Stomach: Collapsed but otherwise normal Small Bowel: Normal in caliber with normal wall thickness. Enteric contrast is present in the distal aspect. Large Bowel: Contains enteric contrast. Diverticulosis coli is present without associated inflammation. No focal mural thickening or pericolonic inflammation. Appendix: Normal. Bladder: Under distended.. Lymph Nodes: No enlarged mesenteric, pelvic, or inguinal lymph nodes. The uterus is atrophic. No adnexal mass. Soft tissues: Intramuscular hematomas of the left rectus abdominis muscles have developed. Above the umbilicus at L3, an intramuscular hematoma measures 4.5 x 8.4 cm in the axial plane and contains a droplet of air. Inferior to the umbilicus an intramuscular hematoma measures 3.8 x 6.4 cm in the axial plane. The extent of the hematoma is 27.5 cm in the craniocaudal dimension. There is a hematoma in the lateral abdominal wall musculature in the left hemiabdomen measuring 2.2 cm in thickness. This is also new. There is subcutaneous edema throughout the abdominal wall of the left hemiabdomen. There is a small fat-containing umbilical hernia. Bones: Diffusely demineralized. Grade 1 anterolisthesis of L5 on S1 without pars defects. Mild to moderate injected changes of the lower thoracic spine. IMPRESSION: 1. Intramuscular hematomas of the left rectus abdominis and left lateral abdominal wall musculature. Subcutaneous edema of the left abdominal wall. 2. Diverticulosis coli. No evidence for bowel obstruction or inflammation. 3. Other findings as described above. Signed by: Dr. Elton Herzog MD on 03/27/2019 1:36 AM
[2019-03-27] MEDS ORDERED: DEXTROSE 50% SYRINGE 50 ML IV PRN (01:45)
[2019-03-27] MEDS ORDERED: MORPHINE SULFATE INJ 4 MG/ML INJ 1ML IV NR (02:15)
[2019-03-27] MEDS ORDERED: ONDANSETRON HCL INJ 2MG/ML 2ML 2 MG/ML VIAL IV NR (02:15)
[2019-03-27] MEDS ORDERED: FAMOTIDINE 20 MG/2 ML VIAL IV NR (02:15)
[2019-03-27] MEDS: LACTATED RINGER'S 1,000 ML IV SCH ×2 (02:43→14:42)
[2019-03-27] MEDS: VANCOMYCIN 1GM/NS 250 ML 250 ML IV SCH ×2 (02:43→13:30)
--- NOTE | 2019-03-27 03:00 | NUR ---
IV LEFT UPPER ARM CHECK, SITE IS INTACT, NO EDEMA OR INFILTRATION NOTED AROUND SITE, PATIENTS DENIES PAIN TO IV SITE
[2019-03-27] MEDS: INSULIN REGULAR, HUMAN 100 UNIT/1 ML 3ML VIAL SQ SCH ×4 (07:00→20:25)
--- NOTE | 2019-03-27 07:26 | NUR ---
report endorsed to aristides falcon
--- NOTE | 2019-03-27 07:47 | NUR ---
H&P cc: abdominal pain HPI: 84yoF, a clinic pt, with hx PAF on AC, developed left abdominal pain, sent to [place], underwent draiange of left rectus hematoma, sent home after few days, now with recurrent pain, found to have hematomas of left abdomen again. PAST MEDICAL HISTORY: Pulmonary edema, bilateral pleural effusion, right groin hematoma due to a left heart cath status post evacuation of the hematoma, bilateral leg edema, coronary artery disease with history of bypass, acute kidney injury, thrombocytopenia, chronic bronchitis, diastolic congestive heart failure, hypertension, pneumonia, heart disease, thrombosis, E. coli urinary tract infection, left-sided pneumonia, GERD, osteoporosis, left lower extremity cellulitis, mild tricuspid regurgitation, mild to moderate mitral regurgitation, atrial fibrillation, depression, ambulatory dysfunction. PAST SURGICAL HISTORY: Coronary artery bypass graft in 2012, thyroidectomy in 2004, thrombosis surgery, cholecystectomy, bilateral tubal ligation, EGD/colonoscopy, ablation of atrial fibrillation. ALLERGIES: PER THE ELECTRONIC MEDICAL RECORDS. FAMILY HISTORY: Patient's mother is . She has asthma. Father is . SOCIAL HISTORY: Patient is . She lives with her son. She has 8 children. No alcohol, illicit drugs or cigarettes. MEDICATIONS: Per the electronic medical records. Medications reviewed. REVIEW OF SYSTEMS: no f/c/s/N/V/D/CHUN/vision changes/cp/leg pain/skin rash VITAL SIGNS: Reviewed. PHYSICAL EXAMINATION GENERAL APPEARANCE: A tired-appearing woman resting in bed. HEENT: anicteric CARDIOVASCULAR: Normal S1/S2. LUNGS: moderate breath sounds ABDOMEN: Soft, left abdomen tender; old incision site visible, EXTREMITIES: no edema NEUROLOGICALLY: She is awake, moves all extremities. SKIN: Dry. PSYCHIATRIC: Flat affect. LABS/MEDS: Reviewed. ASSESSMENT Left abdominal hematoma (rectus abdominis and abdominal wall) UTI Hyponatremia Hyperbilirubinemia Anxiety disorder CAD with hx bypass P.A.fib Diastolic congestive heart failure HTN GERD Hypercalcemia- was on cinacalcet PLAN IR for drainage again vs Sx consult; empiric broad spec abx. No AC Abx for UTI; f/u cx F/u Na level later today SCD Pain control Chandrika Escoto MD, PhD.
[2019-03-27] MEDS ORDERED: ALPRAZOLAM 0.25 MG TAB PO PRN (08:00)
--- NOTE | 2019-03-27 08:16 | NUR ---
DR. RODRIGUES AND DR. ZABRINA BARBOSA AT BEDSIDE EXPLAINING INFORMATION TO PATIENT AND SON. SHE WILL HAVE DRAINEGE OF ABDOMINAL HEMATOMA. COAGS ORDERED. LAB CALLED FOR STAT LABS
--- NOTE | 2019-03-27 08:39 | NUR ---
INTERNATIONAL PROJECT MANAGER AT BEDSIDE DRAWING BLOOD WORK
[2019-03-27 09:00] LABS: INR 1.06; PROTHROMBIN TIME 14.3 seconds (11.9-14.5)
[2019-03-27] MEDS ORDERED: AMIODARONE HCL 200 MG TAB PO SCH (09:00)
[2019-03-27] MEDS ORDERED: CINACALCET 30 MG TAB PO SCH (09:00)
[2019-03-27] MEDS ORDERED: LORATADINE 10 MG TAB PO SCH (09:00)
[2019-03-27] MEDS ORDERED: FUROSEMIDE 40 MG TAB PO SCH (09:00)
[2019-03-27] MEDS ORDERED: ISOSORBIDE MONONITRATE 30 MG TAB CR PO SCH (09:00)
[2019-03-27] MEDS ORDERED: MONTELUKAST SODIUM 10 MG TAB PO SCH (09:00)
[2019-03-27] MEDS ORDERED: METOPROLOL TARTRATE 25 MG TAB PO SCH (09:00)
[2019-03-27] MEDS: FAMOTIDINE 20 MG/2 ML VIAL IV SCH ×2 (09:00→16:14)
[2019-03-27 09:01] LABS: PARTIAL THROMBOPLASTIN TIME 34.1 seconds (23.8-35.5)
--- NOTE | 2019-03-27 09:10 | NUR ---
SPOKE WITH AISLINN IN RADIOLOGY DEPT. DR. JANAE GODINEZ WILL COME SPEAK WITH PATIENT FOR CONSENT
--- NOTE | 2019-03-27 09:19 | NUR ---
DR. JANAE GODINEZ AT BEDSIDE GIVING PATIENT INFO ON HER PROCEDURE
[2019-03-27] MEDS: LEVOFLOXACIN 500MG/D5W 100ML 100 ML IV SCH (09:34)
--- NOTE | 2019-03-27 10:06 | NUR ---
REPORT GIVEN TO JESUS Hinton PATIENT GOING TO ROOM 203. ROOM IS NOT CLEAN AT THIS TIME
--- NOTE | 2019-03-27 10:24 | NUR ---
PATIENT DID NOT EAT BREAKFAST, HAS BEEN NPO EXCEPT FOR SMALL SIP OF FLUID TO TAKE METOPROLOL. NO AM MEDS NEWLY OREDERD GIVEN. JESUS Montoya. AWARE AND THAT PATIENT IS ALSO GOING FOR PROCEDURE
--- NOTE | 2019-03-27 10:41 | NUR ---
IR STAFF HERE TO TAKE PATIENT FOR PROCEDURE. FAMILY AWARE SHE IS GOING. JESUS Hinton CALLED AND UPDATED ON STATUS. BLOOD SUGAR RECHECKED. BS 100
--- NOTE | 2019-03-27 12:12 | NUR ---
RCD PT BY BED PT IS ALERT AND ORIENTED VITALS CHECKED PT RESTING ON BED NO SIGNS OF ANY DISTRESS NOTED ADMISSION ASSESSMENT DONE PT HAVE DRAINAGE TUBE ON THE LEFT SIDE THEY PUT THE IR ON TODAY ,SHE HAD BOWEL AND BLADDER MOVEMENT TODAY ,SHE DENIED PAIN ,PT HAVE BRUISE ON THE BACK NO H/O FELL DOWN AT HOME PT IS DIVEHI SPEAKING FAMILY AT BED SIDE INSTRUCTED PT AND FAMILY REGARDING HOSPITAL POLICY AND ROUTINE BED LOW AND LOCKED CALL LIGHT IN REACH
[2019-03-27] MEDS: AMIODARONE HCL 200 MG TAB PO SCH (13:00)
[2019-03-27] MEDS: MONTELUKAST SODIUM 10 MG TAB PO SCH (13:00)
[2019-03-27] MEDS: ISOSORBIDE MONONITRATE 30 MG TAB CR PO SCH (13:00)
[2019-03-27] MEDS: LORATADINE 10 MG TAB PO SCH (13:00)
[2019-03-27] MEDS: CINACALCET 30 MG TAB PO SCH (13:00)
[2019-03-27] MEDS: FUROSEMIDE 40 MG TAB PO SCH (13:00)
[2019-03-27] MEDS: BENZONATATE 100 MG CAP PO SCH ×2 (14:00→20:53)
[2019-03-27] MEDS: GUAIFENESIN/DEXTROMETHORPHAN LIQD 5 ML UDC NG SCH ×2 (14:00→20:53)
--- NOTE | 2019-03-27 14:40 | Diagnostic Imaging Report ---
Date and Time: 03/27/2019 2:30PM Procedure: Ultrasound-guided abdominal drain placement. drying tunnel operator: Doni Quinones M.D. Pre-operative diagnosis: Abdominal hematoma Post-operative diagnosis: Unchanged Conscious Sedation: None Additional Medications: Lidocaine 1% for local anesthesia Fluoroscopy time: None Estimated blood loss: Minimal Specimens: 10 cc old clot aspirated, sent for micrology Implants: 10 Iranian multipurpose drainage catheter Condition at completion of procedure: Stable Disposition: Transported back to the emergency department PROCEDURE Informed consent was obtained and documented in the medical record after discussion of risks and benefits. The patient was placed in the supine position on the examination table and the abdomen was prepped and draped in the standard sterile fashion. A suitable percutaneous approach to the hematoma was identified by sonography and 1% lidocaine was infiltrated into the skin and subcutaneous tissues for local anesthesia. Then under continuous sonographic guidance, an 18-gauge singlewall needle was used to access the hematoma via a lateral approach. A permanent sonographic image was stored in the medical record. A 0.035-in. Amplatz Super Stiff wire was then advanced through the needle and coiled within the hematoma under sonographic guidance. The needle was removed over the wire and the tract was dilated to 10 Iranian and a 10 Iranian multipurpose drainage catheter advanced into the collection and the locking loop formed. The catheter was connected to gravity drainage. The catheter was secured to the skin with silk suture and a sterile dressing was applied. The patient tolerated the procedure well without immediate complication. FINDINGS: Left rectus hematoma. IMPRESSION: Successful placement of 10 Iranian multipurpose drainage catheter in left rectus hematoma. 10 cc clot aspirated, sent for microbiology cultures. Signed by: Doni Quinones MD on 03/27/2019 2:36 PM
--- NOTE | 2019-03-27 14:40 | Diagnostic Imaging Report ---
Date and Time: 03/27/2019 2:30PM Procedure: Ultrasound-guided abdominal drain placement. wafer fab operator: Doni Quinones M.D. Pre-operative diagnosis: Abdominal hematoma Post-operative diagnosis: Unchanged Conscious Sedation: None Additional Medications: Lidocaine 1% for local anesthesia Fluoroscopy time: None Estimated blood loss: Minimal Specimens: 10 cc old clot aspirated, sent for micrology Implants: 10 Northern Irish multipurpose drainage catheter Condition at completion of procedure: Stable Disposition: Transported back to the emergency department PROCEDURE Informed consent was obtained and documented in the medical record after discussion of risks and benefits. The patient was placed in the supine position on the examination table and the abdomen was prepped and draped in the standard sterile fashion. A suitable percutaneous approach to the hematoma was identified by sonography and 1% lidocaine was infiltrated into the skin and subcutaneous tissues for local anesthesia. Then under continuous sonographic guidance, an 18-gauge singlewall needle was used to access the hematoma via a lateral approach. A permanent sonographic image was stored in the medical record. A 0.035-in. Amplatz Super Stiff wire was then advanced through the needle and coiled within the hematoma under sonographic guidance. The needle was removed over the wire and the tract was dilated to 10 Northern Irish and a 10 Northern Irish multipurpose drainage catheter advanced into the collection and the locking loop formed. The catheter was connected to gravity drainage. The catheter was secured to the skin with silk suture and a sterile dressing was applied. The patient tolerated the procedure well without immediate complication. FINDINGS: Left rectus hematoma. IMPRESSION: Successful placement of 10 Northern Irish multipurpose drainage catheter in left rectus hematoma. 10 cc clot aspirated, sent for microbiology cultures. Signed by: Doni Quinones MD on 03/27/2019 2:36 PM
[2019-03-27] MEDS: METOPROLOL TARTRATE 25 MG TAB PO SCH (16:15)
[2019-03-27] MEDS: ACETAMINOPHEN 325 MG TAB PO PRN (16:16)
--- NOTE | 2019-03-27 18:41 | NUR ---
PT RESTING ON BED BED SIDE REPORT GIVEN TO ONCOMING NURSE
--- NOTE | 2019-03-27 19:15 | NUR ---
PATIENT RECEIVED. PATIENT IS RESTING IN BED, AAOX3. RESP EVEN AND UNLABORED. NO ACUTE DISTRESS NOTED. IV FLUID INFUSING. PATIENT DENIED OF ANY PAIN OR DISCOMFORT. LEFT ABDOMINAL DRAINAGE TUBE NOTED, DARK RED DRAINAGE NOTED. FAMILY AT BED SIDE. CALL LIGHT WITHIN REACH. BED LOW/LOCKED. CONTINUE TO MONITOR CLOSELY
[2019-03-27] MEDS: ATORVASTATIN 40 MG TAB PO SCH (20:53)
--- NOTE | 2019-03-27 23:17 | Consultation ---
DATE OF CONSULTATION: 03/27/2019 CHIEF COMPLAINT: Abdominal pain. HISTORY OF ILLNESS: The patient is an 84-year-old female with a history of abdominal pain for several weeks. The patient gave a history of having a left rectus abdominis hematoma of spontaneous occurrence a few weeks ago and was aspirated at another hospital before being discharged. The patient has been experiencing increasing pain in the last few days since her discharge with subjective fevers, no chills, no vomiting, but the patient has decreased appetite significantly. PAST MEDICAL HISTORY: Positive for coronary artery disease, hypertension, atrial fibrillation. PAST SURGICAL HISTORY: Positive for coronary artery bypass graft in 2013, thyroidectomy, cholecystectomy, groin abscess. ALLERGIES: NO DRUG ALLERGIES. SOCIAL HABITS: No history of smoking or alcohol abuse. REVIEW OF SYSTEMS: No chest pain. Mild shortness of breath. PHYSICAL EXAMINATION: VITAL SIGNS: Low-grade temperature. Blood pressure is 140/65, pulse 65. GENERAL: She is awake, alert, in moderate discomfort. HEENT: Sclerae nonicteric. NECK: Supple. LUNGS: Clear. HEART: Irregular rate and rhythm, but no murmurs. ABDOMEN: Guarding tenderness over the left upper quadrant overlying the rectus muscle with evidence of recent drainage of rectus hematoma. EXTREMITIES: No cyanosis or edema. LABORATORY DATA: White cell count 12.6, hemoglobin of 9.7, platelet count of 253. Creatinine 0.8. INR is 1.0. CT of the abdomen show intramuscular hematoma of the left rectus abdominis measuring 4 x 8 cm. ASSESSMENT: Left rectus abdominis hematoma. The patient has undergone a needle aspiration of 10 mL yield of old blood and clots removed. PLAN: Continue IV antibiotics. Diet as tolerated. We will follow the patient closely. MD REGINALDO Bro/EMILIANO /[id number]
[2019-03-28] VITALS (8 sets, daily range): BP systolic 113–146; BP diastolic 58–65
[2019-03-28] MEDS: VANCOMYCIN 1GM/NS 250 ML 250 ML IV SCH ×2 (01:15→14:20)
[2019-03-28] MEDS: LACTATED RINGER'S 1,000 ML IV SCH ×2 (04:34→17:22)
[2019-03-28 05:03] LABS: BASOPHILS % 0.3 % (0.0-1.0); EOSINOPHILS # (AUTO) 0.2 (0.0-0.4); EOSINOPHILS % 2.4 % (0.0-6.0); HEMATOCRIT 24.4 % (34.2-44.1); LYMPHOCYTES # (AUTO) 1.3 (1.0-3.2); LYMPHOCYTES % 15.6 % (18.0-39.1); MEAN CORPUSCULAR HEMOGLOBIN 30.2 pg (28-32); MEAN CORPUSCULAR HGB CONC 32.8 g/dL (31-35); MEAN CORPUSCULAR VOLUME 92.1 fL (81-99); MONOCYTES # (AUTO) 0.8 (0.2-0.8); MONOCYTES % 9.2 % (4.4-11.3); NEUTROPHILS # (AUTO) 6.2 (2.1-6.9); NEUTROPHILS % 72.2 % (38.7-80.0); PLATELET COUNT 192 x10e3/uL (140-360); RED BLOOD COUNT 2.65 x10e6/uL (3.6-5.1); RED CELL DISTRIBUTION WIDTH 14.4 % (11.7-14.4)
[2019-03-28] MEDS: BENZONATATE 100 MG CAP PO SCH ×3 (05:13→21:09)
[2019-03-28] MEDS: GUAIFENESIN/DEXTROMETHORPHAN LIQD 5 ML UDC NG SCH ×3 (05:13→21:09)
[2019-03-28] MEDS: ACETAMINOPHEN 325 MG TAB PO PRN ×2 (05:18→19:43)
[2019-03-28 05:26] LABS: ANION GAP 10.4 mmol/L (8-16); BLOOD UREA NITROGEN 13 mg/dL (7-26); BUN/CREATININE RATIO 15 (6-25); CALCIUM 8.7 mg/dL (8.4-10.2); CARBON DIOXIDE 25 mmol/L (22-29); CHLORIDE 98 mmol/L (98-107); CREATININE, SERUM 0.87 mg/dL (0.57-1.11); EST GLOMERULAR FILTRATION RATE > 60 ML/MIN (60-); GLUCOSE 94 mg/dL (74-118); POTASSIUM 3.4 mmol/L (3.5-5.1); SODIUM 130 mmol/L (136-145)
[2019-03-28] MEDS ORDERED: POTASSIUM CHLORIDE 20MEQ/100ML 100 ML IV STA (06:07)
--- NOTE | 2019-03-28 06:07 | NUR ---
IM- progress note O/N no events REVIEW OF SYSTEMS: no f/c/s/N/V/D/CHUN/vision changes/cp/leg pain/skin rash VITAL SIGNS: Reviewed. PHYSICAL EXAMINATION GENERAL APPEARANCE: A tired-appearing woman resting in bed. HEENT: anicteric CARDIOVASCULAR: Normal S1/S2. LUNGS: moderate breath sounds ABDOMEN: Soft, left abdomen tender; old incision site visible, EXTREMITIES: no edema NEUROLOGICALLY: She is awake, moves all extremities. SKIN: Dry. PSYCHIATRIC: Flat affect. LABS/MEDS: Reviewed. ASSESSMENT Left abdominal hematoma (rectus abdominis and abdominal wall) UTI Hyponatremia Hyperbilirubinemia Anxiety disorder CAD with hx bypass P.A.fib Diastolic congestive heart failure HTN GERD Hypercalcemia- was on cinacalcet PLAN IR for drainage again vs Sx consult; empiric broad spec abx. No AC Abx for UTI; f/u cx F/u Na level later today SCD Pain control 7/4 leukocytosis resolved; Na improving; replace K; cont IV abx. s/p SADIE drain to hematoma; Chandrika Escoto MD, PhD.
--- NOTE | 2019-03-28 06:19 | NUR ---
EMPTY 45ML DARK READ DRAINAGE
[2019-03-28] MEDS: PANTOPRAZOLE SOD 40 MG TABEC PO SCH (07:30)
[2019-03-28] MEDS: LEVOFLOXACIN 500MG/D5W 100ML 100 ML IV SCH (08:13)
[2019-03-28] MEDS: AMIODARONE HCL 200 MG TAB PO SCH (09:00)
[2019-03-28] MEDS: MONTELUKAST SODIUM 10 MG TAB PO SCH (09:00)
[2019-03-28] MEDS: FAMOTIDINE 20 MG/2 ML VIAL IV SCH ×2 (09:00→17:00)
[2019-03-28] MEDS: CINACALCET 30 MG TAB PO SCH (09:00)
[2019-03-28] MEDS: METOPROLOL TARTRATE 25 MG TAB PO SCH ×2 (09:00→17:00)
[2019-03-28] MEDS: ISOSORBIDE MONONITRATE 30 MG TAB CR PO SCH (09:00)
[2019-03-28] MEDS: LORATADINE 10 MG TAB PO SCH (09:00)
[2019-03-28] MEDS: FUROSEMIDE 40 MG TAB PO SCH (09:00)
[2019-03-28 10:30] LABS: HYPOCHROMASIA SLIGHT; PLATELET ESTIMATE ADEQUATE; PLATELET MORPHOLOGY COMMENT NORMAL; RBC MORPHOLOGY COMMENT NORMAL
[2019-03-28 10:31] LABS: ANISOCYTOSIS SLIGHT
--- NOTE | 2019-03-28 14:20 | NUR ---
PAGED DR BARBOSA AND NOTIFIED [facility] 18.1 GOT THE ORDER TO CONTINUE THE SAME
--- NOTE | 2019-03-28 17:48 | NUR ---
PT WENT HOME IN SAFE CONDITION WITH HIS DAUGHTER Addendum: 03/28/19 at 1839 by Jacey Ag RN WRONG PT
--- NOTE | 2019-03-28 18:39 | NUR ---
PT RESTING ON BED BED SIDE REPORT GIVEN TO ONCOMING NURSE
--- NOTE | 2019-03-28 19:10 | NUR ---
PATIENT RECEIVED. PATIENT IS RESTING IN BED, AAOX3. RESP EVEN AND UNLABORED. NO ACUTE DISTRESS NOTED. PATIENT DENIED OF ANY PAIN OR DISCOMFORT. LEFT ABDOMINAL DRAINAGE TUBE NOTED, DARK RED DRAINAGE NOTED. FAMILY AT BED SIDE. CALL LIGHT WITHIN REACH. BED LOW/LOCKED. CONTINUE TO MONITOR CLOSELY
[2019-03-28] MEDS: ATORVASTATIN 40 MG TAB PO SCH (20:07)
[2019-03-29] VITALS (8 sets, daily range): BP systolic 127–161; BP diastolic 59–92
[2019-03-29] MEDS: VANCOMYCIN 1GM/NS 250 ML 250 ML IV SCH ×2 (01:37→13:45)
[2019-03-29] MEDS: BENZONATATE 100 MG CAP PO SCH ×3 (05:02→22:27)
[2019-03-29] MEDS: ACETAMINOPHEN 325 MG TAB PO PRN ×2 (05:02→17:32)
[2019-03-29] MEDS: GUAIFENESIN/DEXTROMETHORPHAN LIQD 5 ML UDC NG SCH ×3 (05:02→22:27)
--- NOTE | 2019-03-29 07:16 | NUR ---
IM- progress note O/N no events REVIEW OF SYSTEMS: no f/c/s/N/V/D/CHUN/vision changes/cp/leg pain/skin rash VITAL SIGNS: Reviewed. PHYSICAL EXAMINATION GENERAL APPEARANCE: A tired-appearing woman resting in bed. HEENT: anicteric CARDIOVASCULAR: Normal S1/S2. LUNGS: moderate breath sounds ABDOMEN: Soft, left abdomen tender; old incision site visible, EXTREMITIES: no edema NEUROLOGICALLY: She is awake, moves all extremities. SKIN: Dry. PSYCHIATRIC: Flat affect. LABS/MEDS: Reviewed. ASSESSMENT Left abdominal hematoma (rectus abdominis and abdominal wall) UTI Hyponatremia Hyperbilirubinemia Anxiety disorder CAD with hx bypass P.A.fib Diastolic congestive heart failure HTN GERD Hypercalcemia- was on cinacalcet PLAN IR for drainage again vs Sx consult; empiric broad spec abx. No AC Abx for UTI; f/u cx F/u Na level later today SCD Pain control / leukocytosis resolved; Na improving; replace K; cont IV abx. s/p SADIE drain to hematoma; 03/29 check labs; may need surgical intervention. follow counts and clinical improvement Chandrika Escoto MD, PhD.
--- NOTE | 2019-03-29 08:16 | NUR ---
paged to notify MRSA abdomen. Awaiting call back
[2019-03-29] MEDS ORDERED: SODIUM CHLORIDE 0.9% 250ML 250 ML ONE (08:45)
--- NOTE | 2019-03-29 09:20 | NUR ---
aware of MRSA of abdomen
[2019-03-29] MEDS: AMIODARONE HCL 200 MG TAB PO SCH (10:00)
[2019-03-29] MEDS: METOPROLOL TARTRATE 25 MG TAB PO SCH ×2 (10:00→17:11)
[2019-03-29] MEDS: MONTELUKAST SODIUM 10 MG TAB PO SCH (10:00)
[2019-03-29] MEDS: LEVOFLOXACIN 500MG/D5W 100ML 100 ML IV SCH (10:00)
[2019-03-29] MEDS: PANTOPRAZOLE SOD 40 MG TABEC PO SCH (10:00)
[2019-03-29] MEDS: FAMOTIDINE 20 MG/2 ML VIAL IV SCH ×2 (10:00→17:10)
[2019-03-29] MEDS: LORATADINE 10 MG TAB PO SCH (10:00)
[2019-03-29] MEDS: ISOSORBIDE MONONITRATE 30 MG TAB CR PO SCH (10:00)
[2019-03-29] MEDS: CINACALCET 30 MG TAB PO SCH (10:00)
[2019-03-29] MEDS: FUROSEMIDE 40 MG TAB PO SCH (10:00)
--- NOTE | 2019-03-29 15:28 | NUR ---
IMM letter delivered and explained to pt. Pt verbalized understanding. Signed copy placed in chart. Greek copy provided to pt and placed in transition of care folder.
--- NOTE | 2019-03-29 18:43 | NUR ---
drain flushed as ordered
--- NOTE | 2019-03-29 19:00 | NUR ---
REPORT GIVEN TO ONCOMING NURSE OF PATIENT'S STATUS. NO S/S OF ACUTE DISTRESS NOTED
--- NOTE | 2019-03-29 19:16 | NUR ---
Patient received lying in bed. AAO x 3. Drainage bag to left abdomen in place with dark reddish-brown liquid. Patient had no c/o pain. Respirations even and non-labored. Fall precautions in place. Patient instructed to call for assistance when needed. Call light within reach.
[2019-03-29] MEDS: ATORVASTATIN 40 MG TAB PO SCH (22:27)
[2019-03-30] VITALS (8 sets, daily range): BP systolic 121–170; BP diastolic 60–72
--- NOTE | 2019-03-30 02:30 | NUR ---
Patient's IV infiltrated on left arm. Old IV removed with tip intact. New IV inserted in left hand 22G.
[2019-03-30] MEDS: VANCOMYCIN 1GM/NS 250 ML 250 ML IV SCH ×3 (02:34→19:22)
[2019-03-30] MEDS: GUAIFENESIN/DEXTROMETHORPHAN LIQD 5 ML UDC NG SCH ×3 (05:40→21:40)
[2019-03-30] MEDS: BENZONATATE 100 MG CAP PO SCH ×3 (05:40→21:40)
--- NOTE | 2019-03-30 07:05 | NUR ---
Walking rounds done. Shift report given to oncoming nurse regarding patient's status.
[2019-03-30] MEDS: LEVOFLOXACIN 500MG/D5W 100ML 100 ML IV SCH (09:28)
[2019-03-30] MEDS: AMIODARONE HCL 200 MG TAB PO SCH (09:28)
[2019-03-30] MEDS: ISOSORBIDE MONONITRATE 30 MG TAB CR PO SCH (09:28)
[2019-03-30] MEDS: PANTOPRAZOLE SOD 40 MG TABEC PO SCH (09:28)
[2019-03-30] MEDS: FAMOTIDINE 20 MG/2 ML VIAL IV SCH ×2 (09:28→16:41)
[2019-03-30] MEDS: FUROSEMIDE 40 MG TAB PO SCH (09:28)
[2019-03-30] MEDS: LORATADINE 10 MG TAB PO SCH (09:28)
[2019-03-30] MEDS: MONTELUKAST SODIUM 10 MG TAB PO SCH (09:29)
[2019-03-30] MEDS: CINACALCET 30 MG TAB PO SCH (09:29)
[2019-03-30] MEDS: METOPROLOL TARTRATE 25 MG TAB PO SCH ×2 (09:29→16:41)
--- NOTE | 2019-03-30 13:33 | NUR ---
IM- progress note O/N no events REVIEW OF SYSTEMS: no f/c/s/N/V/D/CHUN/vision changes/cp/leg pain/skin rash VITAL SIGNS: Reviewed. PHYSICAL EXAMINATION GENERAL APPEARANCE: A tired-appearing woman resting in bed. HEENT: anicteric CARDIOVASCULAR: Normal S1/S2. LUNGS: moderate breath sounds ABDOMEN: Soft, left abdomen tender; old incision site visible, EXTREMITIES: no edema NEUROLOGICALLY: She is awake, moves all extremities. SKIN: Dry. PSYCHIATRIC: Flat affect. LABS/MEDS: Reviewed. ASSESSMENT Left abdominal hematoma (rectus abdominis and abdominal wall) UTI Hyponatremia Hyperbilirubinemia Anxiety disorder CAD with hx bypass P.A.fib Diastolic congestive heart failure HTN GERD Hypercalcemia- was on cinacalcet PLAN IR for drainage again vs Sx consult; empiric broad spec abx. No AC Abx for UTI; f/u cx F/u Na level later today SCD Pain control 7/ leukocytosis resolved; Na improving; replace K; cont IV abx. s/p SADIE drain to hematoma; / check labs; may need surgical intervention. follow counts and clinical improvement 7/6 check labs; E.faecalis UTI and MRSA infected hematoma. Cont levaquin/vanco. Chandrika Escoto MD, PhD.
[2019-03-30 14:12] LABS: BASOPHILS % 0.7 % (0.0-1.0); EOSINOPHILS # (AUTO) 0.1 (0.0-0.4); HEMATOCRIT 27.8 % (34.2-44.1); LYMPHOCYTES % 16.1 % (18.0-39.1); MEAN CORPUSCULAR HEMOGLOBIN 29.9 pg (28-32); MEAN CORPUSCULAR HGB CONC 32.4 g/dL (31-35); MEAN CORPUSCULAR VOLUME 92.4 fL (81-99); MONOCYTES # (AUTO) 0.5 (0.2-0.8); NEUTROPHILS # (AUTO) 4.4 (2.1-6.9); NEUTROPHILS % 72.9 % (38.7-80.0); PLATELET COUNT 301 x10e3/uL (140-360); RED BLOOD COUNT 3.01 x10e6/uL (3.6-5.1); RED CELL DISTRIBUTION WIDTH 14.6 % (11.7-14.4)
[2019-03-30 14:51] LABS: ANION GAP 11.2 mmol/L (8-16); CALCIUM 8.5 mg/dL (8.4-10.2); CREATININE, SERUM 0.98 mg/dL (0.57-1.11); POTASSIUM 3.2 mmol/L (3.5-5.1)
--- NOTE | 2019-03-30 18:45 | NUR ---
Received bedside report from day shift RN. The patient is laying on the bed, side rails up x2, call light within reach, bed height low and wheels lock. The patient is not in distress. Day shift RN emptied the bag and flushed the drainage bag on the left side of the abdomen.
[2019-03-30] MEDS: ATORVASTATIN 40 MG TAB PO SCH (21:40)
[2019-03-30] MEDS: ACETAMINOPHEN 325 MG TAB PO PRN (21:40)
[2019-03-31] VITALS (7 sets, daily range): BP systolic 112–157; BP diastolic 56–87
[2019-03-31] MEDS: GUAIFENESIN/DEXTROMETHORPHAN LIQD 5 ML UDC NG SCH ×3 (06:17→21:38)
[2019-03-31] MEDS: ACETAMINOPHEN 325 MG TAB PO PRN ×3 (06:17→23:12)
[2019-03-31] MEDS: BENZONATATE 100 MG CAP PO SCH ×3 (06:17→21:38)
--- NOTE | 2019-03-31 07:14 | NUR ---
PT ALERT RESP EVEN AND UNLABORED AT THIS TIME, PT HAS NO C/O PAIN WHEN ASKED, PT ABLE TO MAKE NEEDS KNOWN, CALL LIGHT IN REACH.
[2019-03-31] MEDS: LORATADINE 10 MG TAB PO SCH (10:08)
[2019-03-31] MEDS: MONTELUKAST SODIUM 10 MG TAB PO SCH (10:08)
[2019-03-31] MEDS: METOPROLOL TARTRATE 25 MG TAB PO SCH ×2 (10:08→17:02)
[2019-03-31] MEDS: ISOSORBIDE MONONITRATE 30 MG TAB CR PO SCH (10:08)
[2019-03-31] MEDS: CINACALCET 30 MG TAB PO SCH (10:08)
[2019-03-31] MEDS: AMIODARONE HCL 200 MG TAB PO SCH (10:08)
[2019-03-31] MEDS: PANTOPRAZOLE SOD 40 MG TABEC PO SCH (10:08)
[2019-03-31] MEDS: LEVOFLOXACIN 500MG/D5W 100ML 100 ML IV SCH (10:08)
[2019-03-31] MEDS: FUROSEMIDE 40 MG TAB PO SCH (10:08)
[2019-03-31] MEDS: FAMOTIDINE 20 MG/2 ML VIAL IV SCH ×2 (10:08→17:02)
--- NOTE | 2019-03-31 11:17 | NUR ---
IM- progress note O/N no events REVIEW OF SYSTEMS: no f/c/s/N/V/D/CHUN/vision changes/cp/leg pain/skin rash VITAL SIGNS: Reviewed. PHYSICAL EXAMINATION GENERAL APPEARANCE: A tired-appearing woman resting in bed. HEENT: anicteric CARDIOVASCULAR: Normal S1/S2. LUNGS: moderate breath sounds ABDOMEN: Soft, left abdomen tender; old incision site visible, EXTREMITIES: no edema NEUROLOGICALLY: She is awake, moves all extremities. SKIN: Dry. PSYCHIATRIC: Flat affect. LABS/MEDS: Reviewed. ASSESSMENT Left abdominal hematoma (rectus abdominis and abdominal wall) UTI Hyponatremia Hyperbilirubinemia Anxiety disorder CAD with hx bypass P.A.fib Diastolic congestive heart failure HTN GERD Hypercalcemia- was on cinacalcet PLAN IR for drainage again vs Sx consult; empiric broad spec abx. No AC Abx for UTI; f/u cx F/u Na level later today SCD Pain control 03/28 leukocytosis resolved; Na improving; replace K; cont IV abx. s/p SADIE drain to hematoma; 03/29 check labs; may need surgical intervention. follow counts and clinical improvement 03/30 check labs; E.faecalis UTI and MRSA infected hematoma. Cont levaquin/vanco. 03/31 check K and renal fn. f/u vanco level Chandrika Escoto MD, PhD.
[2019-03-31 12:09] LABS: ANION GAP 12.1 mmol/L (8-16); CALCIUM 9.2 mg/dL (8.4-10.2); CREATININE, SERUM 0.95 mg/dL (0.57-1.11); POTASSIUM 3.1 mmol/L (3.5-5.1)
--- NOTE | 2019-03-31 13:20 | NUR ---
DRAIN FLUSHED AT THIS TIME PT TOLERATED WELL.
[2019-03-31] MEDS: VANCOMYCIN 1GM/NS 250 ML 250 ML IV SCH (17:01)
--- NOTE | 2019-03-31 18:45 | NUR ---
Received bedside report from day shift RN. The patient is laying on the bed, side rails up x2, call light within reach, bed height low and wheels lock. The patient is not in distress. Family members at bedside.
--- NOTE | 2019-03-31 19:30 | NUR ---
REPORT GIVEN TO ON COMING NURSE FOR CONTINUED CARE. PT STABLE.
[2019-03-31] MEDS: ATORVASTATIN 40 MG TAB PO SCH (21:38)
[2019-04-01] VITALS (7 sets, daily range): BP systolic 117–157; BP diastolic 56–79
[2019-04-01] MEDS: VANCOMYCIN 1GM/NS 250 ML 250 ML IV SCH ×2 (00:25→12:41)
[2019-04-01] MEDS: GUAIFENESIN/DEXTROMETHORPHAN LIQD 5 ML UDC NG SCH ×3 (05:05→20:22)
[2019-04-01] MEDS: BENZONATATE 100 MG CAP PO SCH ×3 (05:05→20:22)
[2019-04-01] MEDS: ACETAMINOPHEN 325 MG TAB PO PRN ×2 (05:05→20:23)
--- NOTE | 2019-04-01 07:28 | NUR ---
IM- progress note O/N no events REVIEW OF SYSTEMS: no f/c/s/N/V/D/CHUN/vision changes/cp/leg pain/skin rash VITAL SIGNS: Reviewed. PHYSICAL EXAMINATION GENERAL APPEARANCE: A tired-appearing woman resting in bed. HEENT: anicteric CARDIOVASCULAR: Normal S1/S2. LUNGS: moderate breath sounds ABDOMEN: Soft, left abdomen tender; old incision site visible, EXTREMITIES: no edema NEUROLOGICALLY: She is awake, moves all extremities. SKIN: Dry. PSYCHIATRIC: Flat affect. LABS/MEDS: Reviewed. ASSESSMENT Left abdominal hematoma (rectus abdominis and abdominal wall) UTI Hyponatremia Hyperbilirubinemia Anxiety disorder CAD with hx bypass P.A.fib Diastolic congestive heart failure HTN GERD Hypercalcemia- was on cinacalcet PLAN IR for drainage again vs Sx consult; empiric broad spec abx. No AC Abx for UTI; f/u cx F/u Na level later today SCD Pain control 03/28 leukocytosis resolved; Na improving; replace K; cont IV abx. s/p SADIE drain to hematoma; 03/29 check labs; may need surgical intervention. follow counts and clinical improvement 03/30 check labs; E.faecalis UTI and MRSA infected hematoma. Cont levaquin/vanco. 03/31 check K and renal fn. f/u vanco level 04/01 ready for snf; check K Chandrika Escoto MD, PhD.
[2019-04-01] MEDS: LORATADINE 10 MG TAB PO SCH (08:45)
[2019-04-01] MEDS: PANTOPRAZOLE SOD 40 MG TABEC PO SCH (08:45)
[2019-04-01] MEDS: ISOSORBIDE MONONITRATE 30 MG TAB CR PO SCH (08:45)
[2019-04-01] MEDS: FUROSEMIDE 40 MG TAB PO SCH (08:45)
[2019-04-01] MEDS: CINACALCET 30 MG TAB PO SCH (08:45)
[2019-04-01] MEDS: METOPROLOL TARTRATE 25 MG TAB PO SCH ×2 (08:45→17:00)
[2019-04-01] MEDS: AMIODARONE HCL 200 MG TAB PO SCH (08:45)
[2019-04-01] MEDS: MONTELUKAST SODIUM 10 MG TAB PO SCH (08:45)
[2019-04-01] MEDS: FAMOTIDINE 20 MG/2 ML VIAL IV SCH ×2 (09:00→17:00)
[2019-04-01] MEDS: LEVOFLOXACIN 500MG/D5W 100ML 100 ML IV SCH (09:30)
--- NOTE | 2019-04-01 11:02 | NUR ---
CM SPOKE TO PATIENT AT BEDSIDE WITH MARITZA HASSAN REGARDING SKILLED FACILITY PLACEMENT FOR PHYSICAL THERAPY AND IV ABX TREATMENTS. PATIENT DELEGATED HER SON RAYNA MORALES TO MAKE DECISION AND GIVE CONSENT SINCE HE HANDLES HER AFFAIRS. CM CALLED [facility] AND [facility] REGARDING DISCHARGE PLAN. PENDING RETURN CALL FOR CHOICE AND INTIATION OF PENITENTIARY PLACEMENT. PATIENT POA/SON: RAYNA MORALES- [phone]
[2019-04-01] MEDS ORDERED: POTASSIUM CHLORIDE 10MEQ EA PO ONE (12:30)
--- NOTE | 2019-04-01 13:47 | NUR ---
CM SPOKE TO PATIENT POA REGARDING RESIDENTIAL FACILITY. PATIENT SON/ POA REQUESTED [facility]. CHOICE SIGNED AND CLINICALS FAXED. PENDING INSURANCE AUTH FOR APPROVAL. RESIDENTIAL FACILITY: [facility] Address: [facility] [address], [place] [address] FAX: [phone]
--- NOTE | 2019-04-01 18:45 | NUR ---
Received bedside report from day shift RN. The patient is laying on the bed, side rails up x2, call light within reach, bed height low and wheels lock. The patient is not in distress but c/o of discomfort over the abdomen area. Family members at bedside.
[2019-04-01] MEDS: ATORVASTATIN 40 MG TAB PO SCH (20:22)
[2019-04-02] VITALS (9 sets, daily range): BP systolic 121–149; BP diastolic 58–78
[2019-04-02] MEDS: BENZONATATE 100 MG CAP PO SCH ×3 (00:49→20:32)
[2019-04-02] MEDS: GUAIFENESIN/DEXTROMETHORPHAN LIQD 5 ML UDC NG SCH ×3 (00:49→20:32)
[2019-04-02] MEDS: VANCOMYCIN 1GM/NS 250 ML 250 ML IV SCH ×3 (01:19→13:01)
--- NOTE | 2019-04-02 06:34 | NUR ---
D/C summary Principal dx: Left abdominal hematoma (rectus abdominis and abdominal wall) UTI with Enterococcus faecalis MRSA infected hematoma of abdomen Hyponatremia Hyperbilirubinemia Secondry Dx: Anxiety disorder CAD with hx bypass P.A.fib Diastolic congestive heart failure HTN GERD Hypercalcemia- was on cinacalcet PLAN IR for drainage again vs Sx consult; empiric broad spec abx. No AC Abx for UTI; f/u cx F/u Na level later today SCD Pain control 03/28 leukocytosis resolved; Na improving; replace K; cont IV abx. s/p SADIE drain to hematoma; 03/29 check labs; may need surgical intervention. follow counts and clinical improvement 03/30 check labs; E.faecalis UTI and MRSA infected hematoma. Cont levaquin/vanco. 03/31 check K and renal fn. f/u vanco level 04/01 ready for snf; check K 04/02 check labs d/c to snf f/u pcp 1 week stable d/c>35mins Chandrika Escoto MD, PhD.
--- NOTE | 2019-04-02 07:00 | NUR ---
BEDSIDE SHIFT REPORT RECEIVED FROM THE ELECTRIC CELL TENDER RN. PT IS ON NPO. PT DENIES NEEDS AT THIS TIME.
[2019-04-02] MEDS: PANTOPRAZOLE SOD 40 MG TABEC PO SCH (07:30)
[2019-04-02 07:51] LABS: BASOPHILS % 0.5 % (0.0-1.0); EOSINOPHILS # (AUTO) 0.1 (0.0-0.4); EOSINOPHILS % 0.7 % (0.0-6.0); HEMATOCRIT 30.7 % (34.2-44.1); LYMPHOCYTES # (AUTO) 1.4 (1.0-3.2); LYMPHOCYTES % 16.2 % (18.0-39.1); MEAN CORPUSCULAR HEMOGLOBIN 30.3 pg (28-32); MEAN CORPUSCULAR HGB CONC 32.6 g/dL (31-35); MONOCYTES # (AUTO) 0.6 (0.2-0.8); MONOCYTES % 6.5 % (4.4-11.3); NEUTROPHILS # (AUTO) 6.4 (2.1-6.9); NEUTROPHILS % 75.5 % (38.7-80.0); PLATELET COUNT 305 x10e3/uL (140-360); RED CELL DISTRIBUTION WIDTH 14.9 % (11.7-14.4)
[2019-04-02 08:09] LABS: ANION GAP 13.5 mmol/L (8-16); CALCIUM 9.8 mg/dL (8.4-10.2); CREATININE, SERUM 1.26 mg/dL (0.57-1.11); POTASSIUM 3.5 mmol/L (3.5-5.1)
[2019-04-02] MEDS: METOPROLOL TARTRATE 25 MG TAB PO SCH ×2 (09:00→16:18)
--- NOTE | 2019-04-02 09:24 | NUR ---
ST NOTE: Pt is NPO for procedure, will follow up later today to see if pt status has changed and can complete BSE. Handoff to VINCENT Vargas
[2019-04-02] MEDS: FAMOTIDINE 20 MG/2 ML VIAL IV SCH ×2 (09:25→16:24)
[2019-04-02] MEDS: LEVOFLOXACIN 500MG/D5W 100ML 100 ML IV SCH (09:25)
--- NOTE | 2019-04-02 13:00 | NUR ---
PAGED DR. BARBOSA REGARDING PT VANC TROUGH LEVEL. PER THE DR, DISCONTINUE VANCOMYCIN AND RECHECK TROUGH LEVEL.
[2019-04-02] MEDS ORDERED: LIDOCAINE HCL 1% LOCAL INJ 20 ML VIAL ONE (13:11)
--- NOTE | 2019-04-02 13:17 | NUR ---
PT OFF UNIT FOR PROCEDURE IN SAFE CONDITION.
--- NOTE | 2019-04-02 13:44 | NUR ---
PT CHOICE IN CHART FOR [facility], FAXED CLINICALS. RTF COMPLETED AND PASRR PROVIDED IN CHART WITH COPY TO FACILITY.
--- NOTE | 2019-04-02 13:56 | NUR ---
ST NOTE: Pt in OR for procedure at this time and will return in aprox 1 hour, BSE to be completed 04/03/19 due to pt decreased level of alertness after procedure. Handoff to VINCENT Vargas
--- NOTE | 2019-04-02 14:37 | NUR ---
PT BACK TO UNIT AFTER PROCEDURE. PT DENIES NEEDS AT THIS TIME. PER THE PT, SHE IS NOT DIABETIC AND WANTS REGULAR DIET. PAGED DR. BARBOSA REGARDING THE SAME.
--- NOTE | 2019-04-02 15:19 | Diagnostic Imaging Report ---
PROCEDURE: Non-tunneled central venous catheter placement Procedural Personnel Attending physician(s): Doni Quinones MD Fellow physician(s): None Resident physician(s): None Advanced practice provider(s): None Pre-procedure diagnosis: Difficulty obtaining central venous access. Post-procedure diagnosis: Same Indication: No central venous access. Additional clinical history: None Complications: No immediate complications. IMPRESSION: Insertion of right-sided non-tunneled triple-lumen temporary central venous catheter, with tip in the expected location of the cavoatrial junction. Plan: The catheter may be used immediately. PROCEDURE SUMMARY: - Venous access with ultrasound guidance - Non-tunneled central venous catheter insertion with fluoroscopic guidance - Additional procedure(s): None PROCEDURE DETAILS: Pre-procedure Consent: Informed consent for the procedure including risks, benefits and alternatives was obtained and time-out was performed prior to the procedure. Preparation (MIPS): The site was prepared and draped using all elements of maximal sterile barrier technique including sterile gloves, sterile gown, cap, mask, large sterile sheet, sterile ultrasound probe cover, hand hygiene and cutaneous antisepsis with 2% chlorhexidine. Medical reason for site preparation exception (MIPS): Not applicable Anesthesia/sedation Level of anesthesia/sedation: No sedation Access Local anesthesia was administered. The vessel was sonographically evaluated and determined to be patent. Real time ultrasound was used to visualize needle entry into the vessel and a permanent image was stored. Vein accessed: Internal jugular vein Access technique: 18 gauge access needle Catheter placement The access site was dilated and the catheter was placed into the vein over a wire under fluoroscopic guidance. The catheter tip location was fluoroscopically verified and a permanent image was stored.. A sterile dressing was applied. Catheter placed: Arrow triple-lumen temporary nontunneled central venous catheter Catheter size ([place]): 7 Catheter length (cm): 16 Catheter flush: Saline Catheter securement technique: Non-absorbable suture Contrast Contrast agent: None Radiation Dose Fluoroscopy time (minutes): 0.3 Reference air kerma (mGy): 3.57 Kerma area product (Gy-cm2): 1.16 Additional Details Additional description of procedure: None Equipment details: None Specimens removed: None Estimated blood loss (mL): Less than 10 Standardized report: [id number] Attestation Signer name: Doni Quinones MD I attest that I was present for the entire procedure. I reviewed the stored images and agree with the report as written. Signed by: Doni Quinones MD on 04/02/2019 3:16 PM
--- NOTE | 2019-04-02 15:20 | NUR ---
OKAY TO START REGULAR DIET PER CHARGE NURSE.
[2019-04-02] MEDS: ACETAMINOPHEN 325 MG TAB PO PRN ×2 (16:14→22:40)
[2019-04-02] MEDS: LORATADINE 10 MG TAB PO SCH (16:15)
[2019-04-02] MEDS: ISOSORBIDE MONONITRATE 30 MG TAB CR PO SCH (16:15)
[2019-04-02] MEDS: MONTELUKAST SODIUM 10 MG TAB PO SCH (16:16)
[2019-04-02] MEDS: FUROSEMIDE 40 MG TAB PO SCH (16:16)
[2019-04-02] MEDS: CINACALCET 30 MG TAB PO SCH (16:17)
[2019-04-02] MEDS: AMIODARONE HCL 200 MG TAB PO SCH (16:40)
--- NOTE | 2019-04-02 18:59 | NUR ---
LEFT FORE ARM 20G IV REMOVED. TIP INTACT. NO BLEEDING NOTED. PT DENIED FURTHER NEEDS.
--- NOTE | 2019-04-02 19:00 | NUR ---
BEDSIDE SHIFT REPORT GIVEN TO THE PEANUT SEPARATOR RN. PT DENIED FURTHER NEEDS
--- NOTE | 2019-04-02 19:21 | NUR ---
Pt resting comfortably in bed. Report received from VINCENT Vargas. Pt denies pain. Family is present at bedside.
[2019-04-02] MEDS: ATORVASTATIN 40 MG TAB PO SCH (20:30)
[2019-04-03] VITALS: BP 116/60
[2019-04-03 04:00] VITALS: BP 139/65
[2019-04-03] MEDS: GUAIFENESIN/DEXTROMETHORPHAN LIQD 5 ML UDC NG SCH ×2 (06:00→15:19)
--- NOTE | 2019-04-03 07:10 | NUR ---
REPORT GIVEN TO VINCENT URBANO AT THIS TIME.
[2019-04-03] MEDS: PANTOPRAZOLE SOD 40 MG TABEC PO SCH (07:30)
[2019-04-03 07:51] VITALS: BP 140/66
--- NOTE | 2019-04-03 08:10 | NUR ---
Patient alert and responsive, OOB and ambulated with PT, sitting on recliner, c/o some nausea, medicated per orders, continues on Iso precautions and IV abx, will monitor.
[2019-04-03] MEDS: LEVOFLOXACIN 500MG/D5W 100ML 100 ML IV SCH (08:30)
[2019-04-03] MEDS: FAMOTIDINE 20 MG/2 ML VIAL IV SCH (09:00)
[2019-04-03] MEDS: LORATADINE 10 MG TAB PO SCH (09:00)
[2019-04-03] MEDS: ISOSORBIDE MONONITRATE 30 MG TAB CR PO SCH (09:00)
[2019-04-03] MEDS: AMIODARONE HCL 200 MG TAB PO SCH (09:00)
[2019-04-03] MEDS ORDERED: ONDANSETRON HCL INJ 2MG/ML 2ML 2 MG/ML VIAL IV PRN (09:00)
[2019-04-03] MEDS: FUROSEMIDE 40 MG TAB PO SCH (09:21)
[2019-04-03] MEDS: METOPROLOL TARTRATE 25 MG TAB PO SCH ×2 (09:21→16:59)
[2019-04-03] MEDS: BENZONATATE 100 MG CAP PO SCH ×2 (09:22→14:00)
[2019-04-03] MEDS: MONTELUKAST SODIUM 10 MG TAB PO SCH (09:23)
[2019-04-03] MEDS: CINACALCET 30 MG TAB PO SCH (09:23)
[2019-04-03 11:38] VITALS: BP 110/56
[2019-04-03 11:59] VITALS: BP 110/56
--- NOTE | 2019-04-03 15:36 | NUR ---
IMM letter delivered and explained to pt and daughter at bedside. They verbalized understanding. Signed copy placed in chart. Copy to pt's transition of care folder.
--- NOTE | 2019-04-03 15:45 | NUR ---
PT ACCEPTED TO ROOM [address] BARBOSA. INFORMATION PROVIDED TO NURSE TO COMPLETE THE DISCHARGE.
--- NOTE | 2019-04-03 15:50 | NUR ---
Nutrition Intervention Note RD Recommendation(s) for Physician: -Continue current diet as ordered -Rec Ensure BID to increase protein-calorie intake Plan of Care: RD following, monitoring for tolerance and adequacy, ONS rec Nutrition reason for involvement: LOS RD Assessment 04/03 84yo F, who was admitted for abdominal abscess. Visited pt in the room. Pt reported eating very little. Pt complained of nausea but no vomiting episode. LBM 7/10, diarrhea per pt (possibly due to lasix). No complains of chewing or swallowing difficulty. Weight has been stable. Placement pending. RD offered Ensure to increase protein-calorie intake and pt was agreeable to try. Reviewed menu options with pt and noted that pt is Turkmen speaking only. Will continue to monitor and follow. Principal Problems/Diagnoses: Left abdominal hematoma (rectus abdominis and abdominal wall) PMH: anxiety, CAD, Afib, HTN, CHF, GERD GI: abdomen soft, non-tender, flatus present, LBM 7/10 Skin: no pressure wound noted Labs: (04/03) Creatinine 1.26 H Meds: sensipar, lopressor, lasix, protonix Ht: 59in Wt: 145.06lb BMI: 31.4kg/m2 IBW: 98lb +/- 10% Malnutrition Evaluation (04/03/19) The patient does not meet criteria for a specified degree of malnutrition at this time. Will re-evaluate at follow-up as appropriate. Nutrition Prescription (Diet Order): regular diet Estimated Nutritional Needs: Calories: 1078 1225kcal(22-25kcal/kg/d) Weight used: IBW Protein: 73 98g (1.5-2g/kg/d) Weight used: IBW Diet Adequacy: Not meeting calorie needs, Not meeting protein needs Diet Education Needs Assessment: Diet education not indicated; patient on regular diet. Nutrition Care Level: low Nutrition Diagnosis: Inadequate oral intake related to poor appetite as evidenced by pt reported eating very little for the past couple days and complained of nausea. Goal: Patient will meet 75-100% of estimated needs by follow up Progress: Progressing Interventions: General healthful diet, Commercial beverage Monitoring/Evaluation: Total energy intake, Total protein intake, Diet, Liquid supplement, Weight change Signed: Natasha Dugan, , RD, LD
[2019-04-03 16:14] VITALS: BP 121/58
[2019-04-03] MEDS ORDERED: FAMOTIDINE 20 MG TAB PO SCH (16:30)
--- NOTE | 2019-04-03 16:53 | NUR ---
Spoke with Dr. Escoto on reconciling discharge medications and he stated to send patient to SNF only with active meds on profile at the moment and to disregard home med list.
--- NOTE | 2019-04-03 16:58 | NUR ---
Call to Dr. Tena's service to get clearance for discharge as patient still has T-tube for abdl drainage in place. Waiting for call back
--- NOTE | 2019-04-03 17:25 | NUR ---
Called and spoke with DR. Tena and he stated ok to discharge [facility] with [facility]-tube drain and that he will see the patient there. Calling for report now
[2019-04-03] MEDS: ACETAMINOPHEN 325 MG TAB PO PRN (20:00)
--- NOTE | 2019-04-03 20:00 | NUR ---
Discharge instructions given by day nurse. Patient A&Ox4, respirations even & unlabored, no distress noted. R IJ triple lumen left in place, C/D/I. Abdominal drain left in place. Patient escorted via stretcher by EMS. Belongs were given to patient.
== END 2019-04-03 20:12 | DRG 920 ==
LOC: ER 19:49 → ERHOLD 03-27 01:46 → MED/SURG2 03-27 12:40
PROVIDERS: ADMIT Internal Medicine; ATTEND Internal Medicine
PROC: 0W9H30Z Drainage of Retroperitoneum with Drainage Device, Percutaneous Approach (ICD-10-PCS; principal; 2019-03-27)
PROC: 02HV33Z Insertion of Infusion Device into Superior Vena Cava, Percutaneous Approach (ICD-10-PCS; 2019-04-02)
DX: I97.630 Postprocedural hematoma of a circulatory system organ or structure following a cardiac catheterization (principal); I50.32 Chronic diastolic (congestive) heart failure; E87.1 Hypo-osmolality and hyponatremia; N39.0 Urinary tract infection, site not specified; I48.91 Unspecified atrial fibrillation; I11.0 Hypertensive heart disease with heart failure; E83.52 Hypercalcemia; Y83.8 Other surgical procedures as the cause of abnormal reaction of the patient, or of later complication, without mention of misadventure at the time of the procedure; Y71.1 Therapeutic (nonsurgical) and rehabilitative cardiovascular devices associated with adverse incidents; I25.10 Atherosclerotic heart disease of native coronary artery without angina pectoris; Z95.1 Presence of aortocoronary bypass graft; J44.9 Chronic obstructive pulmonary disease, unspecified
CPT/HCPCS: 36415; 36556; 74176; 74470; 75989; 76937; 77001; 80048; 80053; 80202; 81001; 82948; 84132; 85025; 85610; 85730; 87071; 87086; 87186; 87205; 97139; 99284; C1729; C1751; C1769; J0696; J1817; J1956; J2001; J2270; J2405; J3370; J3480; J7030; J7050; J7121

== ENCOUNTER 2019-04-12 19:59 | Emergency (ER) | payer MEDICARE, OTHER ==
[~2019-04-12] VITALS: Ht 124.5 cm; Wt 65.8 kg
[2019-04-12] MEDS ORDERED: DIATRIZOATE MEGL/DIATRIZOA SOD 30 ML BTL PO ONE (20:15)
--- NOTE | 2019-04-12 20:46 | Diagnostic Imaging Report ---
A single frontal view of the chest. HISTORY: Vomiting, central line, check placement COMPARISON: Chest radiograph January 06, 2019 DISCUSSION: Portable technique, limits sensitivity of the exam. Soft tissue attenuation partially limits sensitivity of the exam. Overlying monitoring leads. Tubes/Lines: Unchanged appearance of the left-sided implanted cardiac device. Interval placement of a right approach subclavian venous catheter, the tip projects in the region of the right atrium. Lungs and pleura: Low lung volumes result in bibasilar vascular crowding, accentuation of the pulmonary interstitial markings, central pulmonary vasculature, and the cardiac silhouette. Allowing for these limitations, the findings are as follows: Confluent left basilar opacity obscures the left hemidiaphragm. No definite pleural effusion or pneumothorax is identified. Heart and mediastinum: The cardiac silhouette appears Central pulmonary vasculature appear enlarged. Bones and soft tissues: Multiple median sternotomy wires. IMPRESSION: 1. Status post placement of a right approach central venous catheter, the tip projects in the region of the right atrium. 2. Confluent left basilar opacity, considerations include: pleural effusion, atelectasis, pneumonia, and/or aspiration in the appropriate settings. Recommend short term follow up routine PA and lateral chest radiographs, in 6 to 8 weeks, to evaluate for resolution. Signed by: Dr. Rc Noonan D.O., M.M.M. on 04/12/2019 8:43 PM
[2019-04-12 20:55] LABS: BILIRUBIN,URINE NEGATIVE (NEGATIVE); CLARITY,URINE CLEAR (CLEAR); COLOR,URINE YELLOW (YELLOW); KETONES,URINE NEGATIVE (NEGATIVE); LEUKOCYTE ESTERASE ,URINE TRACE (NEGATIVE); NITRITE,URINE NEGATIVE (NEGATIVE); PROTEIN,URINE DIPSTICK NEGATIVE (NEGATIVE); URINE UROBILINOGEN 0.2 mg/dL (0.2 - 1)
[2019-04-12 21:08] LABS: BACTERIA,URINE MODERATE /HPF; EPITHELIAL CELLS,URINE FEW /LPF; RBC,URINE 0-5 /HPF (0-5)
[2019-04-12 22:08] LABS: BASOPHILS % 0.2 % (0.0-1.0); EOSINOPHILS # (AUTO) 0.1 (0.0-0.4); EOSINOPHILS % 1.2 % (0.0-6.0); HEMATOCRIT 28.9 % (34.2-44.1); HEMOGLOBIN 9.6 g/dL (12.0-16.0); LYMPHOCYTES # (AUTO) 1.3 (1.0-3.2); LYMPHOCYTES % 14.5 % (18.0-39.1); MEAN CORPUSCULAR HEMOGLOBIN 30.7 pg (28-32); MEAN CORPUSCULAR HGB CONC 33.2 g/dL (31-35); MEAN CORPUSCULAR VOLUME 92.3 fL (81-99); MONOCYTES # (AUTO) 0.6 (0.2-0.8); MONOCYTES % 6.9 % (4.4-11.3); NEUTROPHILS # (AUTO) 6.9 (2.1-6.9); NEUTROPHILS % 76.8 % (38.7-80.0); PLATELET COUNT 155 x10e3/uL (140-360); RED BLOOD COUNT 3.13 x10e6/uL (3.6-5.1); RED CELL DISTRIBUTION WIDTH 14.4 % (11.7-14.4)
[2019-04-12 22:26] LABS: ALBUMIN 3.1 g/dL (3.5-5.0); ANION GAP 11.4 mmol/L (8-16); CALCIUM 8.6 mg/dL (8.4-10.2); CREATININE, SERUM 0.99 mg/dL (0.57-1.11); POTASSIUM 3.4 mmol/L (3.5-5.1)
[2019-04-12 22:48] LABS: AMYLASE 77 U/L (25-125); LIPASE 80 U/L (8-78)
[2019-04-12] MEDS: SODIUM CHLORIDE 0.9% 500ML 500 ML IV ONE (23:35)
--- NOTE | 2019-04-12 23:50 | NUR ---
REPORT GIVEN TO VINCENT CHANDLER
[2019-04-12] MEDS ORDERED: IOPAMIDOL 370 MG/ML 200 ML INFUS..BTL INJ ONE (23:56)
[2019-04-12] MEDS ORDERED: SODIUM CHLORIDE 0.9% 50ML 0 ML ONE (23:56)
--- NOTE | 2019-04-13 01:02 | Diagnostic Imaging Report ---
EXAM: CT of the abdomen and pelvis WITH contrast HISTORY: Vomiting, drain in place, intra-abdominal abscess COMPARISON: CT of the abdomen and pelvis March 27, 2019 and March 12, 2019. TECHNIQUE: The abdomen and pelvis were scanned utilizing a multidetector helical scanner. Coronal and sagittal reformats are provided. PROTOCOL: Routine IV CONTRAST: 100 cc of Isovue-370. ORAL CONTRAST: Dilute Gastrografin. RADIATION DOSE: Total DLP: 400.86 mGy*cm Estimated effective dose: (DLP x 0.015 x size factor) Dose modulation, iterative reconstruction, and/or weight based adjustment of the mA/kV was utilized to reduce the radiation dose to as low as reasonably achievable. COMPLICATIONS: None FINDINGS: LOWER THORAX: Persistent elevation of the left hemidiaphragm. Trace left effusion with adjacent atelectasis. HEPATOBILIARY: No mass. No biliary dilation. Metallic clips in the right upper quadrant of the abdomen are compatible with prior cholecystectomy. SPLEEN: No splenomegaly. PANCREAS: No focal masses or ductal dilatation. Diffuse parenchymal atrophy. ADRENALS: No discrete adrenal nodule. KIDNEYS/URETERS: No hydronephrosis, stones, or definite solid mass lesions. Unchanged bilateral hypodensities measuring up to 1 cm, statistically most likely small cysts. PELVIC ORGANS/BLADDER: The uterus is anteflexed. The urinary bladder is partially decompressed, which limits evaluation, but no focal abnormality is identified. GI TRACT: No dilation or wall thickening identified. The appendix is normal. The stomach and distal colon are decompressed, which partially limits evaluation. PERITONEUM / RETROPERITONEUM: No free air or fluid. LYMPH NODES: No pathologically enlarged lymph node. VESSELS: Scattered atherosclerotic vascular calcifications, including the coronary arteries. BONES and JOINTS: Diffusely decreased mineralization of the osseous structures limits bone detail. Stable appearing accentuation of the lumbar lordosis and visualized thoracic kyphosis, associated stable multilevel mild vertebral wedging.. SOFT TISSUES: Interval placement of a percutaneous drainage catheter, the distal coil is centered at the left rectus abdominis collection, marked interval decrease of the collection, the residual hypodensity measures up to 0.6 cm (AP) by 5 cm (ML). Moderate regional edema. Stable fat-containing left inguinal hernia. IMPRESSION: 1. Status post placement of a percutaneous drainage catheter within the left rectus abdominis fluid collection which has markedly decreased in size. 2. Trace left pleural effusion with adjacent atelectasis. 3. Coronary atherosclerosis. 4. Diffuse osseous demineralization. Signed by: Dr. Rc Noonan D.O., M.M.M. on 04/13/2019 12:59 AM
== END 2019-04-13 02:00 ==
LOC: ER 19:59
DX: R11.2 Nausea with vomiting, unspecified (principal); K65.1 Peritoneal abscess; E11.22 Type 2 diabetes mellitus with diabetic chronic kidney disease; I13.0 Hypertensive heart and chronic kidney disease with heart failure and stage 1 through stage 4 chronic kidney disease, or unspecified chronic kidney disease; N18.9 Chronic kidney disease, unspecified; I50.9 Heart failure, unspecified; J44.9 Chronic obstructive pulmonary disease, unspecified; I48.91 Unspecified atrial fibrillation; E03.9 Hypothyroidism, unspecified; M19.90 Unspecified osteoarthritis, unspecified site; K21.9 Gastro-esophageal reflux disease without esophagitis; Z95.1 Presence of aortocoronary bypass graft; Z95.810 Presence of automatic (implantable) cardiac defibrillator; Z79.01 Long term (current) use of anticoagulants
CPT/HCPCS: 36415; 71045; 74177; 80053; 81001; 82150; 83690; 85025; 99284; J7040; Q9967

== ENCOUNTER → 2019-06-26 | Outpatient (CLI) | payer MEDICARE, OTHER ==
--- NOTE | 2019-06-26 12:27 | Diagnostic Imaging Report ---
EXAMINATION: CHEST 2 VIEWS INDICATION: Shortness of breath COMPARISON: Chest radiograph of 04/12/2019 FINDINGS: LINES/TUBES:Left chest pacemaker with leads unchanged. LUNGS:The lungs are moderately inflated. Linear opacity at the left lung base likely represent subsegmental atelectasis. The airspace opacity at the left lung base on the prior chest radiograph of 04/12/2019 has improved. PLEURA:No pleural effusion or pneumothorax. MEDIASTINUM:The cardiomediastinal silhouette appears unchanged in size and shape. BONES/SOFT TISSUES:No acute osseous injury. ABDOMEN:No free air under the diaphragm. Exaggerated thoracic kyphosis. IMPRESSION: Interval resolution of left lung base airspace opacity seen on 04/12/2019. Linear opacities at the left lung base likely represent subsegmental atelectasis. Signed by: Doni Quinones MD on 06/26/2019 12:24 PM
== END ==
LOC: RAD 11:11
PROVIDERS: ATTEND Internal Medicine
DX: R06.09 Other forms of dyspnea (principal)
CPT/HCPCS: 71046

== ENCOUNTER 2021-04-14 23:41 | Emergency (ER) | payer MEDICARE, OTHER ==
[~2021-04-14] VITALS: Ht 162.6 cm; Wt 61.2 kg
[~2021-04-14 23:41] MED LIST changes: +TYLENOL # 31 EA PO
[2021-04-15 00:32] LABS: BASOPHILS % 0.7 % (0.0-1.0); CLARITY,URINE CLEAR (CLEAR); COLOR,URINE YELLOW (YELLOW); EOSINOPHILS % 0.7 % (0.0-6.0); HEMATOCRIT 37.8 % (34.2-44.1); HEMOGLOBIN 12.1 g/dL (12.0-16.0); KETONES,URINE NEGATIVE (NEGATIVE); LEUKOCYTE ESTERASE ,URINE TRACE (NEGATIVE); LYMPHOCYTES % 35.9 % (18.0-39.1); MEAN CORPUSCULAR VOLUME 93.8 fL (81-99); MONOCYTES # (AUTO) 0.5 (0.2-0.8); MONOCYTES % 8.8 % (4.4-11.3); NEUTROPHILS # (AUTO) 2.9 (2.1-6.9); NEUTROPHILS % 53.5 % (38.7-80.0); NITRITE,URINE NEGATIVE (NEGATIVE); PLATELET COUNT 151 x10e3/uL (140-360); PROTEIN,URINE DIPSTICK NEGATIVE (NEGATIVE); RED BLOOD COUNT 4.03 x10e6/uL (3.6-5.1); RED CELL DISTRIBUTION WIDTH 13.8 % (11.7-14.4); URINE UROBILINOGEN 0.2 mg/dL (0.2 - 1)
[2021-04-15 00:37] LABS: BACTERIA,URINE MANY /HPF; EPITHELIAL CELLS,URINE FEW /LPF
[2021-04-15 00:47] LABS: ALBUMIN 4.2 g/dL (3.5-5.0); ALBUMIN/GLOBULIN RATIO 1.4 (0.8-2.0); ANION GAP 11.3 mmol/L (8-16); CALCIUM 10.3 mg/dL (8.4-10.2); CREATININE, SERUM 1.01 mg/dL (0.57-1.11); POTASSIUM 4.3 mmol/L (3.5-5.1)
[2021-04-15 00:49] LABS: CREATINE KINASE MB 0.9 ng/mL (0-5.0)
== END 2021-04-15 02:30 | disposition home or self-care (01) ==
LOC: ER 04-15 00:15
DX: R07.9 Chest pain, unspecified (principal); R51.9 Headache, unspecified; N39.0 Urinary tract infection, site not specified; I10 Essential (primary) hypertension; E11.9 Type 2 diabetes mellitus without complications; Z95.1 Presence of aortocoronary bypass graft; Z95.810 Presence of automatic (implantable) cardiac defibrillator
CPT/HCPCS: 36415; 70450; 71045; 80053; 81001; 82550; 82553; 83880; 84484; 85025; 93005; 99284

== ENCOUNTER 2021-04-26 16:03 | Emergency (ER) | payer MEDICARE, OTHER ==
[~2021-04-26] VITALS: Ht 152.4 cm; Wt 68.0 kg
[2021-04-26] MEDS ORDERED: SODIUM CHLORIDE 0.9% 500ML 500 ML IV STA (16:50)
[2021-04-26 17:41] LABS: BASOPHILS % 0.1 % (0.0-1.0); EOSINOPHILS % 0.1 % (0.0-6.0); HEMATOCRIT 40.5 % (34.2-44.1); HEMOGLOBIN 12.8 g/dL (12.0-16.0); LYMPHOCYTES # (AUTO) 0.9 (1.0-3.2); LYMPHOCYTES % 11.6 % (18.0-39.1); MEAN CORPUSCULAR HEMOGLOBIN 29.9 pg (28-32); MEAN CORPUSCULAR HGB CONC 31.6 g/dL (31-35); MEAN CORPUSCULAR VOLUME 94.6 fL (81-99); MONOCYTES # (AUTO) 0.6 (0.2-0.8); MONOCYTES % 8.1 % (4.4-11.3); NEUTROPHILS # (AUTO) 6.1 (2.1-6.9); NEUTROPHILS % 79.6 % (38.7-80.0); PLATELET COUNT 139 x10e3/uL (140-360); RED BLOOD COUNT 4.28 x10e6/uL (3.6-5.1); RED CELL DISTRIBUTION WIDTH 14.6 % (11.7-14.4)
[2021-04-26 18:02] LABS: CREATINE KINASE MB 2.1 ng/mL (0-5.0)
[2021-04-26 18:39] LABS: ALBUMIN 4.2 g/dL (3.5-5.0); ALBUMIN/GLOBULIN RATIO 1.2 (0.8-2.0); ANION GAP 15.8 mmol/L (8-16); CALCIUM 10.4 mg/dL (8.4-10.2); CREATININE, SERUM 1.04 mg/dL (0.57-1.11); POTASSIUM 3.8 mmol/L (3.5-5.1)
[2021-04-26 18:57] LABS: CLARITY,URINE CLEAR (CLEAR); COLOR,URINE YELLOW (YELLOW)
[2021-04-26 18:58] LABS: KETONES,URINE NEGATIVE (NEGATIVE); LEUKOCYTE ESTERASE ,URINE NEGATIVE (NEGATIVE); NITRITE,URINE NEGATIVE (NEGATIVE); PROTEIN,URINE DIPSTICK NEGATIVE (NEGATIVE); URINE UROBILINOGEN 0.2 mg/dL (0.2 - 1)
[2021-04-26] MEDS ORDERED: SODIUM CHLORIDE 0.9% 50ML 50 ML ONE (19:04)
[2021-04-26] MEDS ORDERED: IOPAMIDOL 370 MG/ML 200 ML INFUS..BTL INJ ONE (19:04)
[2021-04-26 19:09] LABS: EPITHELIAL CELLS,URINE RARE /LPF; WBC,URINE (MAN) 0-5 /HPF (0-5)
[2021-04-26] MEDS ORDERED: CASIRIVIMAB/IMDEVIMAB 10 ML VIAL IV ONE (20:15)
[2021-04-26] MEDS ORDERED: CASIRIVIMAB/IMDEVIMAB 600 ML in SODIUM CHLORIDE 0.9% 100 ML IV ONE (20:30)
[2021-04-26] MEDS ORDERED: ACETAMINOPHEN 325 MG TAB PO ONE (21:00)
[2021-04-26] MEDS ORDERED: ACETAMINOPHEN 325 MG TAB ONE (21:04)
== END 2021-04-26 23:16 | disposition home or self-care (01) ==
LOC: ER 16:11
DX: R50.9 Fever, unspecified (principal); R05 Cough; U07.1 COVID-19; I10 Essential (primary) hypertension; E78.5 Hyperlipidemia, unspecified; I25.10 Atherosclerotic heart disease of native coronary artery without angina pectoris
CPT/HCPCS: 36415; 71045; 71260; 80053; 81001; 82550; 82553; 83880; 84484; 85025; 93005; 99284; J7040; J7050; Q9967; U0002

== ENCOUNTER 2021-12-21 12:34 | Emergency (ER) | payer MEDICARE, OTHER ==
[~2021-12-21] VITALS: Ht 162.6 cm; Wt 68.0 kg
[2021-12-21] MEDS ORDERED: ACETAMINOPHEN 325 MG TAB PO ONE (13:30)
== END 2021-12-21 17:08 | disposition home or self-care (01) ==
LOC: ER 12:45
DX: S00.83XA Contusion of other part of head, initial encounter (principal); S60.221A Contusion of right hand, initial encounter; S70.01XA Contusion of right hip, initial encounter; S80.01XA Contusion of right knee, initial encounter; S16.1XXA Strain of muscle, fascia and tendon at neck level, initial encounter; W18.39XA Other fall on same level, initial encounter; Y93.01 Activity, walking, marching and hiking; Y92.512 Supermarket, store or market as the place of occurrence of the external cause; Z95.810 Presence of automatic (implantable) cardiac defibrillator
CPT/HCPCS: 70450; 72125; 99283

== ENCOUNTER 2022-04-28 18:17 | Emergency (ER) | payer MEDICARE, OTHER ==
[~2022-04-28] VITALS: Ht 162.6 cm; Wt 68.0 kg
[2022-04-28 19:00] LABS: BASOPHILS % 0.3 % (0.0-1.0); EOSINOPHILS % 0.4 % (0.0-6.0); HEMATOCRIT 36.3 % (34.2-44.1); HEMOGLOBIN 11.8 g/dL (12.0-16.0); LYMPHOCYTES # (AUTO) 1.1 (1.0-3.2); LYMPHOCYTES % 15.2 % (18.0-39.1); MEAN CORPUSCULAR HEMOGLOBIN 31.1 pg (28-32); MEAN CORPUSCULAR HGB CONC 32.5 g/dL (31-35); MEAN CORPUSCULAR VOLUME 95.8 fL (81-99); MONOCYTES # (AUTO) 0.5 (0.2-0.8); NEUTROPHILS # (AUTO) 5.6 (2.1-6.9); NEUTROPHILS % 76.8 % (38.7-80.0); PLATELET COUNT 154 x10e3/uL (140-360); RED BLOOD COUNT 3.79 x10e6/uL (3.6-5.1); RED CELL DISTRIBUTION WIDTH 13.2 % (11.7-14.4)
[2022-04-28 19:05] LABS: CLARITY,URINE HAZY (CLEAR); COLOR,URINE STRAW (YELLOW); KETONES,URINE NEGATIVE (NEGATIVE); LEUKOCYTE ESTERASE ,URINE LARGE (NEGATIVE); NITRITE,URINE NEGATIVE (NEGATIVE); PROTEIN,URINE DIPSTICK 1+ (NEGATIVE); URINE UROBILINOGEN 0.2 mg/dL (0.2 - 1)
[2022-04-28 19:14] LABS: ALBUMIN/GLOBULIN RATIO 1.1 (0.8-2.0); ANION GAP 10.5 mmol/L (8-16); CALCIUM 10.3 mg/dL (8.4-10.2); CREATININE, SERUM 1.1 mg/dL (0.57-1.11); POTASSIUM 3.5 mmol/L (3.5-5.1)
[2022-04-28 19:16] LABS: WBC,URINE (MAN) >50 /HPF (0-5)
[2022-04-28 19:17] LABS: BACTERIA,URINE MANY /HPF
[2022-04-28] MEDS ORDERED: SODIUM CHLORIDE 0.9% 1000ML 1,000 ML IV STA (19:45)
[2022-04-28] MEDS ORDERED: IOPAMIDOL 370 MG/ML 100 ML INFUS..BTL INJ ONE (20:12)
[2022-04-28] MEDS ORDERED: CEFTRIAXONE 1 GM VIAL IM STA (21:01)
[2022-04-28] MEDS ORDERED: ONDANSETRON HCL INJ 2MG/ML 2ML 2 MG/ML VIAL IV STA (21:38)
[2022-04-28] MEDS ORDERED: Morphine 4mg INJECTION 4 MG/ML INJ IV STA (21:38)
[2022-04-28] MEDS ORDERED: ULTRAM 50MG50 MG PO (22:00)
== END 2022-04-28 22:45 | disposition home or self-care (01) ==
LOC: ER 18:25
DX: R10.30 Lower abdominal pain, unspecified (principal); D25.9 Leiomyoma of uterus, unspecified; I10 Essential (primary) hypertension; E78.5 Hyperlipidemia, unspecified; I25.10 Atherosclerotic heart disease of native coronary artery without angina pectoris; Z95.1 Presence of aortocoronary bypass graft; Z95.810 Presence of automatic (implantable) cardiac defibrillator
CPT/HCPCS: 36415; 74177; 80053; 81001; 82550; 82553; 83690; 84484; 85025; 93005; 99284; J2270; J2405; J7030; Q9967

== ENCOUNTER 2022-05-12 20:47 | Emergency (ER) | payer MEDICARE, OTHER ==
[~2022-05-12] VITALS: Ht 162.6 cm; Wt 68.0 kg
[~2022-05-12 20:47] MED LIST changes: +ULTRAM 50MG50 MG PO
[2022-05-12] MEDS ORDERED: ONDANSETRON HCL INJ 2MG/ML 2ML 2 MG/ML VIAL IV STA (21:39)
[2022-05-12 22:08] LABS: BASOPHILS % 0.4 % (0.0-1.0); EOSINOPHILS % 0.4 % (0.0-6.0); HEMATOCRIT 38.3 % (34.2-44.1); HEMOGLOBIN 12.8 g/dL (12.0-16.0); LYMPHOCYTES # (AUTO) 1.6 (1.0-3.2); LYMPHOCYTES % 21.9 % (18.0-39.1); MEAN CORPUSCULAR HEMOGLOBIN 30.8 pg (28-32); MEAN CORPUSCULAR HGB CONC 33.4 g/dL (31-35); MEAN CORPUSCULAR VOLUME 92.1 fL (81-99); MONOCYTES # (AUTO) 0.5 (0.2-0.8); MONOCYTES % 7.1 % (4.4-11.3); NEUTROPHILS % 70.1 % (38.7-80.0); PLATELET COUNT 178 x10e3/uL (140-360); RED BLOOD COUNT 4.16 x10e6/uL (3.6-5.1); RED CELL DISTRIBUTION WIDTH 12.4 % (11.7-14.4)
[2022-05-12 22:29] LABS: ALBUMIN 4.2 g/dL (3.5-5.0); ALBUMIN/GLOBULIN RATIO 1.2 (0.8-2.0); ANION GAP 13.7 mmol/L (8-16); CALCIUM 10.8 mg/dL (8.4-10.2); CREATININE, SERUM 1.05 mg/dL (0.57-1.11); POTASSIUM 3.7 mmol/L (3.5-5.1)
[2022-05-12 22:36] LABS: CREATINE KINASE MB 1.4 ng/mL (0-5.0)
[2022-05-12] MEDS ORDERED: SODIUM CHLORIDE 0.9% 500ML 500 ML IV ONE (23:00)
[2022-05-12] MEDS ORDERED: IOPAMIDOL 300MG/ML 100 ML INFUS..BTL IV ONE (23:12)
[2022-05-13 00:30] LABS: CLARITY,URINE CLOUDY (CLEAR); COLOR,URINE YELLOW (YELLOW); KETONES,URINE NEGATIVE (NEGATIVE); LEUKOCYTE ESTERASE ,URINE MODERATE (NEGATIVE); NITRITE,URINE POSITIVE (NEGATIVE); PROTEIN,URINE DIPSTICK NEGATIVE (NEGATIVE); URINE UROBILINOGEN 0.2 mg/dL (0.2 - 1)
[2022-05-13 00:36] LABS: BACTERIA,URINE MODERATE /HPF; EPITHELIAL CELLS,URINE FEW /LPF; RBC,URINE 0-5 /HPF (0-5); WBC,URINE (MAN) 21-50 /HPF (0-5)
== END 2022-05-13 01:12 | disposition home or self-care (01) ==
LOC: ER 21:35
DX: R10.13 Epigastric pain (principal); N39.0 Urinary tract infection, site not specified; R11.0 Nausea; R94.31 Abnormal electrocardiogram [ECG] [EKG]; I10 Essential (primary) hypertension; E78.5 Hyperlipidemia, unspecified; I25.10 Atherosclerotic heart disease of native coronary artery without angina pectoris; Z95.810 Presence of automatic (implantable) cardiac defibrillator
CPT/HCPCS: 36415; 74177; 80053; 81001; 82550; 82553; 83690; 84484; 85025; 93041; 99284; C9113; J2405; J7040; Q9967

== ENCOUNTER 2022-08-04 15:37 | Emergency (ER) | payer MEDICARE, OTHER ==
[~2022-08-04] VITALS: Ht 160 cm; Wt 68.0 kg
[2022-08-04] MEDS ORDERED: AZITHROMYCIN250 MG PO (16:58)
[2022-08-04] MEDS ORDERED: PREDNISONE20 MG PO (16:58)
[2022-08-04] MEDS ORDERED: VENTOLIN HFA18 GM INH (16:58)
[2022-08-04] MEDS ORDERED: BENZONATATE100 MG PO (16:58)
[2022-08-04] MEDS ORDERED: ALBUTEROL/IPRATROPIUM 3 ML NEB NEB ONE (17:00)
[2022-08-04] MEDS ORDERED: PREDNISONE 20 MG TAB PO ONE (17:00)
== END 2022-08-04 17:36 | disposition home or self-care (01) ==
LOC: ER 15:46
DX: R05.9 Cough, unspecified (principal); J40 Bronchitis, not specified as acute or chronic; J06.9 Acute upper respiratory infection, unspecified; Z20.822 Contact with and (suspected) exposure to COVID-19
CPT/HCPCS: 71046; 87400; 99283; J7512; U0002

== ENCOUNTER 2023-02-23 13:00 | Inpatient (IN) | payer MEDICARE, OTHER ==
[~2023-02-23] VITALS: Ht 152.4 cm; Wt 68.9 kg
[~2023-02-23 13:00] MED LIST changes: +AZITHROMYCIN250 MG PO; +VENTOLIN HFA18 GM INH
[2023-02-23] MEDS ORDERED: DILTIAZEM HCL 5 MG/ML 5 ML VIAL IV ONE (13:30)
[2023-02-23] MEDS ORDERED: ASPIRIN 81 MG CHEW TAB PO ONE (13:30)
[2023-02-23] MEDS ORDERED: FUROSEMIDE INJ 10 MG/ML 4 ML VIAL IV ONE (13:30)
[2023-02-23] MEDS ORDERED: SODIUM CHLORIDE FLUSH 10 ML SYR IV PRN (13:30)
[2023-02-23 13:43] LABS: BASOPHILS % 0.6 % (0.0-1.0); EOSINOPHILS % 0.6 % (0.0-6.0); HEMATOCRIT 35.3 % (34.2-44.1); HEMOGLOBIN 11.6 g/dL (12.0-16.0); LYMPHOCYTES # (AUTO) 1.5 (1.0-3.2); LYMPHOCYTES % 30.2 % (18.0-39.1); MEAN CORPUSCULAR HEMOGLOBIN 29.8 pg (28-32); MEAN CORPUSCULAR HGB CONC 32.9 g/dL (31-35); MEAN CORPUSCULAR VOLUME 90.7 fL (81-99); MONOCYTES # (AUTO) 0.5 (0.2-0.8); MONOCYTES % 9.3 % (4.4-11.3); NEUTROPHILS # (AUTO) 2.9 (2.1-6.9); NEUTROPHILS % 59.3 % (38.7-80.0); PLATELET COUNT 166 x10e3/uL (140-360); RED BLOOD COUNT 3.89 x10e6/uL (3.6-5.1); RED CELL DISTRIBUTION WIDTH 13.2 % (11.7-14.4)
[2023-02-23 14:04] LABS: ALBUMIN 4.2 g/dL (3.5-5.0); ALBUMIN/GLOBULIN RATIO 1.5 (0.8-2.0); ANION GAP 11.2 mmol/L (8-16); CALCIUM 10.8 mg/dL (8.4-10.2); CREATININE, SERUM 0.85 mg/dL (0.57-1.11); POTASSIUM 4.2 mmol/L (3.5-5.1)
[2023-02-23] MEDS ORDERED: SODIUM CHLORIDE FLUSH 10 ML SYR INJ PRN (15:00)
[2023-02-23] MEDS ORDERED: ONDANSETRON HCL INJ 2MG/ML 2ML 2 MG/ML VIAL IV PRN (15:00)
[2023-02-23] MEDS ORDERED: Morphine 2mg Syringe 2 MG/ML SYR IV PRN (15:00)
[2023-02-23 16:12] VITALS: PULSE 89; RESP 16; O2SAT 98
[2023-02-23] MEDS: DILTIAZEM HCL 30 MG TAB PO SCH ×2 (18:06→22:39)
[2023-02-23 18:45] VITALS: PULSE 105; RESP 18; O2SAT 99
[2023-02-23 20:30] VITALS: BP 127/100; PULSE 120; RESP 17; TEMP 98; O2SAT 97
[2023-02-23] MEDS ORDERED: NORVASC5 MG PO (21:00)
[2023-02-23] MEDS ORDERED: LEVOTHYROXINE75 MCG PO (21:00)
[2023-02-23] MEDS ORDERED: ACETAMINOPHEN-1 EAC3 PO (21:00)
[2023-02-23] MEDS ORDERED: NEURONTIN100 MG PO (21:00)
[2023-02-23] MEDS ORDERED: K-TAB ER20 MEQ PO (21:00)
[2023-02-23 21:54] VITALS: BP 127/100; PULSE 120; RESP 17; TEMP 98; O2SAT 97
[2023-02-24] VITALS (7 sets, daily range): BP systolic 96–125; BP diastolic 59–82; PULSE 86–120; RESP 17–24; TEMP 97.7–98.6; O2SAT 95–100
[2023-02-24] MEDS: KETOROLAC TROMETHAMINE 30 MG/ML VIAL IV PRN ×2 (00:51→21:58)
[2023-02-24] MEDS: ZOLPIDEM TARTRATE 5 MG TAB PO PRN ×2 (00:53→21:58)
[2023-02-24] MEDS ORDERED: ACETAMINOPHEN 325 MG TAB PO PRN (01:00)
[2023-02-24] MEDS ORDERED: SIMETHICONE 80 MG CHEW PO PRN (01:00)
[2023-02-24] MEDS ORDERED: DEXTROSE 50% SYRINGE 50 ML IV PRN (01:00)
[2023-02-24] MEDS ORDERED: ALBUTEROL/IPRATROPIUM 3 ML NEB NEB PRN (01:00)
[2023-02-24] MEDS ORDERED: LIDOCAINE 4% PATCH TP PRN (01:00)
[2023-02-24] MEDS ORDERED: POTASSIUM CHLORIDE 20 MEQ TAB CR PO PRN (01:00)
[2023-02-24] MEDS ORDERED: BENZONATATE 100 MG CAP PO PRN (01:00)
[2023-02-24] MEDS ORDERED: DIPHENHYDRAMINE HCL 25 MG CAP PO PRN (01:00)
[2023-02-24] MEDS ORDERED: DOCUSATE SODIUM 100 MG CAP PO PRN (01:00)
[2023-02-24] MEDS ORDERED: HYDRALAZINE HCL 20 MG/ML VIAL IV PRN (01:00)
[2023-02-24] MEDS ORDERED: ONDANSETRON HCL INJ 2MG/ML 2ML 2 MG/ML VIAL IV PRN (01:00)
[2023-02-24 05:08] LABS: BASOPHILS % 0.2 % (0.0-1.0); EOSINOPHILS % 0.3 % (0.0-6.0); HEMATOCRIT 34.6 % (34.2-44.1); HEMOGLOBIN 11.3 g/dL (12.0-16.0); LYMPHOCYTES # (AUTO) 1.6 (1.0-3.2); MEAN CORPUSCULAR HEMOGLOBIN 29.6 pg (28-32); MEAN CORPUSCULAR HGB CONC 32.7 g/dL (31-35); MEAN CORPUSCULAR VOLUME 90.6 fL (81-99); MONOCYTES # (AUTO) 0.5 (0.2-0.8); MONOCYTES % 7.5 % (4.4-11.3); NEUTROPHILS # (AUTO) 4.3 (2.1-6.9); NEUTROPHILS % 66.8 % (38.7-80.0); PLATELET COUNT 153 x10e3/uL (140-360); RED BLOOD COUNT 3.82 x10e6/uL (3.6-5.1); RED CELL DISTRIBUTION WIDTH 13.1 % (11.7-14.4)
[2023-02-24 05:30] LABS: ALBUMIN 3.8 g/dL (3.5-5.0); ALBUMIN/GLOBULIN RATIO 1.6 (0.8-2.0); ANION GAP 11.2 mmol/L (8-16); CALCIUM 10.4 mg/dL (8.4-10.2); CREATININE, SERUM 0.99 mg/dL (0.57-1.11); POTASSIUM 4.2 mmol/L (3.5-5.1)
[2023-02-24 06:07] LABS: MAGNESIUM 2.1 MG/DL (1.3-2.1)
[2023-02-24 06:27] LABS: THYROID STIMULATING HORMONE 0.735 uIU/mL (0.350-4.940)
[2023-02-24] MEDS ORDERED: METOPROLOL TARTRATE 25 MG TAB PO SCH ×2 (09:00→21:00)
[2023-02-24] MEDS: RIVAROXABAN 20 MG TABLET PO SCH (09:42)
[2023-02-24] MEDS: PANTOPRAZOLE SOD 40 MG TABEC PO SCH (09:42)
[2023-02-24] MEDS: LORATADINE 10 MG TAB PO SCH (09:42)
[2023-02-24] MEDS ORDERED: IOPAMIDOL 370 MG/ML 100 ML INFUS..BTL INJ ONE ×2 (11:06→12:14)
[2023-02-24] MEDS: DILTIAZEM HCL 30 MG TAB PO SCH ×2 (11:30→11:55)
[2023-02-24] MEDS: FUROSEMIDE INJ 10 MG/ML 2 ML VIAL IV SCH ×2 (11:55→18:05)
[2023-02-24] MEDS: ISOSORBIDE MONONITRATE 30 MG TAB CR PO SCH (11:56)
[2023-02-24] MEDS: LISINOPRIL 2.5 MG TAB PO SCH (11:57)
[2023-02-24] MEDS ORDERED: ASPIRIN 81 MG CHEW TAB PO ONE (16:00)
[2023-02-24] MEDS: METOPROLOL TARTRATE 25 MG TAB PO SCH ×2 (16:30→21:00)
[2023-02-24] MEDS: ATORVASTATIN 20 MG TAB PO SCH (22:01)
[2023-02-25] VITALS (11 sets, daily range): BP systolic 81–121; BP diastolic 54–89; PULSE 59–117; RESP 15–20; TEMP 97.1–98.8; O2SAT 94–99
[2023-02-25 04:35] LABS: BASOPHILS % 0.5 % (0.0-1.0); EOSINOPHILS # (AUTO) 0.1 (0.0-0.4); EOSINOPHILS % 1.6 % (0.0-6.0); HEMATOCRIT 36.3 % (34.2-44.1); HEMOGLOBIN 11.7 g/dL (12.0-16.0); LYMPHOCYTES # (AUTO) 1.7 (1.0-3.2); LYMPHOCYTES % 29.9 % (18.0-39.1); MEAN CORPUSCULAR HEMOGLOBIN 30.2 pg (28-32); MEAN CORPUSCULAR HGB CONC 32.2 g/dL (31-35); MEAN CORPUSCULAR VOLUME 93.8 fL (81-99); MONOCYTES # (AUTO) 0.4 (0.2-0.8); MONOCYTES % 7.3 % (4.4-11.3); NEUTROPHILS # (AUTO) 3.5 (2.1-6.9); NEUTROPHILS % 60.5 % (38.7-80.0); PLATELET COUNT 146 x10e3/uL (140-360); RED BLOOD COUNT 3.87 x10e6/uL (3.6-5.1); RED CELL DISTRIBUTION WIDTH 12.9 % (11.7-14.4)
[2023-02-25 04:53] LABS: ANION GAP 12.7 mmol/L (8-16); CALCIUM 10.5 mg/dL (8.4-10.2); CREATININE, SERUM 1.17 mg/dL (0.57-1.11); POTASSIUM 4.7 mmol/L (3.5-5.1)
[2023-02-25] MEDS: PANTOPRAZOLE SOD 40 MG TABEC PO SCH (10:07)
[2023-02-25] MEDS: LORATADINE 10 MG TAB PO SCH (10:07)
[2023-02-25] MEDS: FUROSEMIDE INJ 10 MG/ML 2 ML VIAL IV SCH ×2 (10:07→17:32)
[2023-02-25] MEDS: METOPROLOL TARTRATE 25 MG TAB PO SCH ×4 (10:08→23:08)
[2023-02-25] MEDS: ISOSORBIDE MONONITRATE 30 MG TAB CR PO SCH (10:08)
[2023-02-25] MEDS: RIVAROXABAN 20 MG TABLET PO SCH (10:09)
[2023-02-25] MEDS: LISINOPRIL 2.5 MG TAB PO SCH (10:09)
[2023-02-25] MEDS ORDERED: AZITHROMYCIN 250 MG TAB PO SCH (11:00)
[2023-02-25] MEDS: IPRATROPIUM BROMIDE 0.02% 2.5 ML NEB NEB SCH ×2 (15:03→18:40)
[2023-02-25] MEDS ORDERED: METOPROLOL TARTRATE INJ 1 MG/ML VIAL IV ONE (18:45)
[2023-02-25] MEDS: AZITHROMYCIN 250 MG TAB PO SCH (23:06)
[2023-02-25] MEDS: ATORVASTATIN 20 MG TAB PO SCH (23:07)
[2023-02-25] MEDS: BALSAM PERU/CASTOR OIL 60 GM OINT...G. TP SCH (23:08)
[2023-02-25] MEDS: MELATONIN 5 MG TABLET PO PRN (23:09)
[2023-02-26] VITALS (13 sets, daily range): BP systolic 89–106; BP diastolic 56–71; PULSE 67–111; RESP 14–20; TEMP 97.1–98.3; O2SAT 93–100
[2023-02-26] MEDS: PANTOPRAZOLE SOD 40 MG TABEC PO SCH (07:52)
[2023-02-26] MEDS: LISINOPRIL 2.5 MG TAB PO SCH (07:52)
[2023-02-26] MEDS: LORATADINE 10 MG TAB PO SCH (07:53)
[2023-02-26] MEDS: METOPROLOL TARTRATE 25 MG TAB PO SCH ×3 (07:53→21:00)
[2023-02-26] MEDS: ISOSORBIDE MONONITRATE 30 MG TAB CR PO SCH (07:53)
[2023-02-26] MEDS: RIVAROXABAN 20 MG TABLET PO SCH (07:53)
[2023-02-26] MEDS: IPRATROPIUM BROMIDE 0.02% 2.5 ML NEB NEB SCH ×3 (08:38→19:31)
[2023-02-26] MEDS ORDERED: SODIUM CHLORIDE 0.9% 250ML 250 ML IV ONE (12:00)
[2023-02-26] MEDS: BUDESONIDE 0.5MG/2 ML NEB INH SCH (19:30)
[2023-02-26] MEDS: AZITHROMYCIN 250 MG TAB PO SCH (21:09)
[2023-02-26] MEDS: ATORVASTATIN 20 MG TAB PO SCH (21:09)
[2023-02-26] MEDS: MELATONIN 5 MG TABLET PO PRN (21:10)
[2023-02-26] MEDS: BALSAM PERU/CASTOR OIL 60 GM OINT...G. TP SCH (21:12)
[2023-02-27] VITALS (9 sets, daily range): BP systolic 103–121; BP diastolic 66–76; PULSE 85–108; RESP 15–19; TEMP 97.4–97.9; O2SAT 96–99
[2023-02-27] MEDS: IPRATROPIUM BROMIDE 0.02% 2.5 ML NEB NEB SCH ×2 (08:36→15:00)
[2023-02-27] MEDS: BUDESONIDE 0.5MG/2 ML NEB INH SCH (08:36)
[2023-02-27] MEDS: LORATADINE 10 MG TAB PO SCH (08:50)
[2023-02-27] MEDS: PANTOPRAZOLE SOD 40 MG TABEC PO SCH (08:50)
[2023-02-27] MEDS: RIVAROXABAN 20 MG TABLET PO SCH (08:50)
[2023-02-27] MEDS: LISINOPRIL 2.5 MG TAB PO SCH (08:51)
[2023-02-27] MEDS: METOPROLOL TARTRATE 25 MG TAB PO SCH ×2 (08:51→14:03)
[2023-02-27] MEDS ORDERED: ONDANSETRON HCL 4 MG ORAL DISINTEGRATING TAB PO PRN (15:45)
== END 2023-02-27 16:34 | disposition home or self-care (01) | DRG 309 ==
LOC: ER 13:08 → ERHOLD 14:58 → MED/SURG 20:05 → OBSVTOIN 02-24 15:21
PROVIDERS: ADMIT Internal Medicine; ATTEND Internal Medicine
DX: I48.20 Chronic atrial fibrillation, unspecified (principal); I50.30 Unspecified diastolic (congestive) heart failure; E03.9 Hypothyroidism, unspecified; I25.10 Atherosclerotic heart disease of native coronary artery without angina pectoris; K21.9 Gastro-esophageal reflux disease without esophagitis; J43.9 Emphysema, unspecified; R91.8 Other nonspecific abnormal finding of lung field; K76.9 Liver disease, unspecified; I11.0 Hypertensive heart disease with heart failure; J42 Unspecified chronic bronchitis; E78.2 Mixed hyperlipidemia; Z20.822 Contact with and (suspected) exposure to COVID-19; Z79.01 Long term (current) use of anticoagulants; Z95.0 Presence of cardiac pacemaker; Z90.49 Acquired absence of other specified parts of digestive tract; Z95.1 Presence of aortocoronary bypass graft; Z87.891 Personal history of nicotine dependence
CPT/HCPCS: 0223U; 36415; 71045; 71250; 74177; 80048; 80053; 80061; 82550; 82553; 83036; 83735; 83880; 84443; 84484; 85025; 93005; 93306; 94640; 94760; 94799; 99252; 99284; G0378; J1885; J1940; J2270; J2405; J7050; Q9967

== ENCOUNTER 2023-03-07 14:30 | Emergency (ER) | payer MEDICARE, OTHER ==
[~2023-03-07] VITALS: Ht 157.5 cm; Wt 67.1 kg
[~2023-03-07 14:30] MED LIST changes: +ACETAMINOPHEN-1 EAC3 PO; +K-TAB ER20 MEQ PO; +LEVOTHYROXINE75 MCG PO; +NEURONTIN100 MG PO; +NORVASC5 MG PO
[2023-03-07] MEDS ORDERED: TRAMADOL HCL 50 MG TAB PO ONE (15:00)
[2023-03-07] MEDS ORDERED: NAPROXEN250 MG PO (16:35)
[2023-03-07 16:53] VITALS: BP 129/84; PULSE 72; RESP 18; TEMP 98.3; O2SAT 99
== END 2023-03-07 16:41 | disposition home or self-care (01) ==
LOC: ER 14:45
DX: S00.83XA Contusion of other part of head, initial encounter (principal); S20.211A Contusion of right front wall of thorax, initial encounter; W01.0XXA Fall on same level from slipping, tripping and stumbling without subsequent striking against object, initial encounter; Y93.01 Activity, walking, marching and hiking; Y92.89 Other specified places as the place of occurrence of the external cause; I10 Essential (primary) hypertension; I50.9 Heart failure, unspecified; E78.5 Hyperlipidemia, unspecified; I48.91 Unspecified atrial fibrillation; E03.9 Hypothyroidism, unspecified; I25.10 Atherosclerotic heart disease of native coronary artery without angina pectoris; Z95.810 Presence of automatic (implantable) cardiac defibrillator
CPT/HCPCS: 70450; 71046; 99283

== ENCOUNTER 2023-03-22 10:48 | Inpatient (IN) | payer MEDICARE, OTHER ==
[~2023-03-22] VITALS: Ht 157.5 cm; Wt 67.1 kg
[~2023-03-22 10:48] MED LIST changes: +NAPROXEN250 MG PO
[2023-03-22 11:55] LABS: BASOPHILS # (AUTO) 0.1 (0.0-0.1); EOSINOPHILS # (AUTO) 0.1 (0.0-0.4); EOSINOPHILS % 0.8 % (0.0-6.0); HEMATOCRIT 37.7 % (34.2-44.1); HEMOGLOBIN 12.3 g/dL (12.0-16.0); LYMPHOCYTES # (AUTO) 1.9 (1.0-3.2); LYMPHOCYTES % 26.1 % (18.0-39.1); MEAN CORPUSCULAR HEMOGLOBIN 30.2 pg (28-32); MEAN CORPUSCULAR HGB CONC 32.6 g/dL (31-35); MEAN CORPUSCULAR VOLUME 92.6 fL (81-99); MONOCYTES # (AUTO) 0.5 (0.2-0.8); MONOCYTES % 7.4 % (4.4-11.3); NEUTROPHILS # (AUTO) 4.6 (2.1-6.9); NEUTROPHILS % 64.4 % (38.7-80.0); PLATELET COUNT 154 x10e3/uL (140-360); RED BLOOD COUNT 4.07 x10e6/uL (3.6-5.1)
[2023-03-22 12:02] LABS: INR 2.01; PROTHROMBIN TIME 23.8 seconds (11.9-14.5)
[2023-03-22 12:07] LABS: CLARITY,URINE CLEAR (CLEAR); COLOR,URINE YELLOW (YELLOW)
[2023-03-22 12:08] LABS: KETONES,URINE NEGATIVE (NEGATIVE); LEUKOCYTE ESTERASE ,URINE SMALL (NEGATIVE); NITRITE,URINE NEGATIVE (NEGATIVE); PROTEIN,URINE DIPSTICK NEGATIVE (NEGATIVE); URINE UROBILINOGEN 0.2 mg/dL (0.2 - 1)
[2023-03-22 12:09] LABS: WBC,URINE (MAN) 21-50 /HPF (0-5)
[2023-03-22 12:10] LABS: BACTERIA,URINE MODERATE /HPF; RBC,URINE 0-5 /HPF (0-5)
[2023-03-22 12:12] LABS: ALBUMIN/GLOBULIN RATIO 1.3 (0.8-2.0); ANION GAP 14.1 mmol/L (8-16); CALCIUM 10.7 mg/dL (8.4-10.2); CREATININE, SERUM 0.91 mg/dL (0.57-1.11); POTASSIUM 4.1 mmol/L (3.5-5.1)
[2023-03-22] MEDS ORDERED: SODIUM CHLORIDE FLUSH 10 ML SYR INJ PRN (13:15)
[2023-03-22] MEDS ORDERED: ONDANSETRON HCL INJ 2MG/ML 2ML 2 MG/ML VIAL IV PRN (13:15)
[2023-03-22] MEDS ORDERED: Morphine 2mg Syringe 2 MG/ML SYR IV PRN (13:15)
[2023-03-22] MEDS ORDERED: FUROSEMIDE INJ 10 MG/ML 4 ML VIAL IV ONE (14:00)
[2023-03-22 14:27] VITALS: PULSE 79; RESP 20; O2SAT 95
[2023-03-22] MEDS ORDERED: DOCUSATE SODIUM 100 MG CAP PO PRN (15:00)
[2023-03-22] MEDS ORDERED: MELATONIN 3 MG TAB PO PRN (15:00)
[2023-03-22] MEDS ORDERED: SIMETHICONE 80 MG CHEW PO PRN (15:00)
[2023-03-22] MEDS ORDERED: ALBUTEROL SULFATE HFA 8GM INHALATION AEROSOL INH PRN (15:00)
[2023-03-22] MEDS ORDERED: METOPROLOL TARTRATE INJ 1 MG/ML VIAL IV PRN (15:15)
[2023-03-22 18:00] VITALS: BP 157/97; PULSE 62; RESP 18; RESP 20; TEMP 97.7; O2SAT 98
[2023-03-22 20:00] VITALS: BP 132/88; PULSE 98; RESP 17; TEMP 97.9; O2SAT 100
[2023-03-22 20:58] VITALS: PULSE 72; RESP 20; O2SAT 98
[2023-03-22 21:00] VITALS: BP 132/88; PULSE 98; RESP 17; TEMP 97.9; O2SAT 100
[2023-03-22] MEDS ORDERED: FUROSEMIDE INJ 10 MG/ML 4 ML VIAL IV SCH (21:00)
[2023-03-22] MEDS: FUROSEMIDE INJ 10 MG/ML 2 ML VIAL IV SCH (21:22)
[2023-03-22] MEDS: GABAPENTIN 100 MG CAP PO SCH (21:22)
[2023-03-22] MEDS: ATORVASTATIN 40 MG TAB PO SCH (21:22)
[2023-03-22] MEDS: ZOLPIDEM TARTRATE 5 MG TAB PO SCH (21:22)
[2023-03-23] VITALS (7 sets, daily range): BP systolic 118–137; BP diastolic 78–94; PULSE 59–124; RESP 16–19; TEMP 97.5–98.4; O2SAT 96–100
[2023-03-23] MEDS: LEVOTHYROXINE SODIUM 75 MCG TAB PO SCH (06:02)
[2023-03-23] MEDS: FUROSEMIDE INJ 10 MG/ML 2 ML VIAL IV SCH ×3 (06:03→21:59)
[2023-03-23 06:16] LABS: BASOPHILS # (AUTO) 0.1 (0.0-0.1); BASOPHILS % 0.7 % (0.0-1.0); EOSINOPHILS % 0.5 % (0.0-6.0); HEMATOCRIT 36.7 % (34.2-44.1); HEMOGLOBIN 12.3 g/dL (12.0-16.0); LYMPHOCYTES # (AUTO) 1.9 (1.0-3.2); LYMPHOCYTES % 24.8 % (18.0-39.1); MEAN CORPUSCULAR HEMOGLOBIN 29.9 pg (28-32); MEAN CORPUSCULAR HGB CONC 33.5 g/dL (31-35); MEAN CORPUSCULAR VOLUME 89.3 fL (81-99); MONOCYTES # (AUTO) 0.6 (0.2-0.8); MONOCYTES % 7.6 % (4.4-11.3); NEUTROPHILS % 66.3 % (38.7-80.0); PLATELET COUNT 151 x10e3/uL (140-360); RED BLOOD COUNT 4.11 x10e6/uL (3.6-5.1); RED CELL DISTRIBUTION WIDTH 12.7 % (11.7-14.4)
[2023-03-23 06:38] LABS: ALBUMIN 3.8 g/dL (3.5-5.0); ALBUMIN/GLOBULIN RATIO 1.3 (0.8-2.0); ANION GAP 12.8 mmol/L (8-16); CREATININE, SERUM 0.88 mg/dL (0.57-1.11); POTASSIUM 3.8 mmol/L (3.5-5.1)
[2023-03-23 08:55] LABS: CHOL/HDL RATIO 2.4 (3.0-3.6)
[2023-03-23] MEDS: PANTOPRAZOLE SOD 40 MG TABEC PO SCH (09:41)
[2023-03-23] MEDS: LORATADINE 10 MG TAB PO SCH (09:41)
[2023-03-23] MEDS: RIVAROXABAN 20 MG TABLET PO SCH (09:41)
[2023-03-23 14:21] LABS: CREATINE KINASE 36 IU/L (29-168)
[2023-03-23] MEDS ORDERED: ONDANSETRON HCL 4 MG ORAL DISINTEGRATING TAB PO PRN (14:30)
[2023-03-23] MEDS ORDERED: DIGOXIN INJ 0.25 MG/ML 2 ML AMP IV ONE (15:15)
[2023-03-23] MEDS ORDERED: METOPROLOL TARTRATE INJ 1 MG/ML VIAL IV ONE (18:40)
[2023-03-23] MEDS: GABAPENTIN 100 MG CAP PO SCH (21:48)
[2023-03-23] MEDS: ATORVASTATIN 40 MG TAB PO SCH (21:49)
[2023-03-23] MEDS: DIGOXIN 0.125 MG TAB PO SCH (21:51)
[2023-03-23] MEDS: ZOLPIDEM TARTRATE 5 MG TAB PO SCH (21:58)
[2023-03-24] VITALS (8 sets, daily range): BP systolic 102–125; BP diastolic 63–96; PULSE 71–119; RESP 16–20; TEMP 97.3–97.7; O2SAT 96–100
[2023-03-24] MEDS: FUROSEMIDE INJ 10 MG/ML 2 ML VIAL IV SCH ×2 (06:00→17:53)
[2023-03-24] MEDS: METOPROLOL TARTRATE 25 MG TAB PO SCH ×2 (06:00)
[2023-03-24] MEDS: LEVOTHYROXINE SODIUM 75 MCG TAB PO SCH (06:00)
[2023-03-24 06:40] LABS: ANION GAP 10.8 mmol/L (8-16); CALCIUM 10.5 mg/dL (8.4-10.2); CREATININE, SERUM 0.96 mg/dL (0.57-1.11); POTASSIUM 3.8 mmol/L (3.5-5.1)
[2023-03-24] MEDS: METOPROLOL TARTRATE 50 MG TAB PO SCH ×4 (09:00→22:31)
[2023-03-24] MEDS: LORATADINE 10 MG TAB PO SCH (09:09)
[2023-03-24] MEDS: RIVAROXABAN 20 MG TABLET PO SCH (09:09)
[2023-03-24] MEDS: DIGOXIN 0.125 MG TAB PO SCH ×2 (09:10→22:30)
[2023-03-24] MEDS: PANTOPRAZOLE SOD 40 MG TABEC PO SCH (09:10)
[2023-03-24] MEDS ORDERED: ACETAMINOPHEN 325 MG TAB PO PRN (11:30)
[2023-03-24] MEDS ORDERED: ALBUTEROL/IPRATROPIUM 3 ML NEB NEB SCH (15:00)
[2023-03-24] MEDS ORDERED: METOPROLOL TARTRATE 25 MG TAB PO SCH (21:00)
[2023-03-24] MEDS: GABAPENTIN 100 MG CAP PO SCH (22:30)
[2023-03-24] MEDS: ZOLPIDEM TARTRATE 5 MG TAB PO SCH (22:30)
[2023-03-24] MEDS: ATORVASTATIN 40 MG TAB PO SCH (22:31)
[2023-03-25] VITALS: BP 113/80; PULSE 64; RESP 18; TEMP 98.3; O2SAT 100
[2023-03-25 04:00] VITALS: BP 109/71; PULSE 71; RESP 18; TEMP 97.4
[2023-03-25] MEDS: LEVOTHYROXINE SODIUM 75 MCG TAB PO SCH (05:16)
[2023-03-25] MEDS ORDERED: METOPROLOL TART50 MG PO (07:58)
[2023-03-25] MEDS ORDERED: DIGOXIN125 MCG PO (07:58)
[2023-03-25 08:14] VITALS: BP 122/84; PULSE 71; RESP 16; TEMP 97.5; O2SAT 97
[2023-03-25] MEDS: DIGOXIN 0.125 MG TAB PO SCH (08:38)
[2023-03-25] MEDS: LORATADINE 10 MG TAB PO SCH (08:38)
[2023-03-25] MEDS: RIVAROXABAN 20 MG TABLET PO SCH (08:38)
[2023-03-25] MEDS: PANTOPRAZOLE SOD 40 MG TABEC PO SCH (08:38)
[2023-03-25] MEDS: METOPROLOL TARTRATE 50 MG TAB PO SCH (08:38)
[2023-03-25] MEDS: FUROSEMIDE INJ 10 MG/ML 2 ML VIAL IV SCH (08:46)
== END 2023-03-25 10:54 | disposition home or self-care (01) | DRG 291 ==
LOC: ER 11:08 → ERHOLD 13:13 → MED/SURG3 17:32
PROVIDERS: ADMIT Internal Medicine; ATTEND Internal Medicine
DX: I11.0 Hypertensive heart disease with heart failure (principal); I50.33 Acute on chronic diastolic (congestive) heart failure; N39.0 Urinary tract infection, site not specified; I48.20 Chronic atrial fibrillation, unspecified; J90 Pleural effusion, not elsewhere classified; J98.11 Atelectasis; E83.52 Hypercalcemia; E03.9 Hypothyroidism, unspecified; J43.9 Emphysema, unspecified; I25.10 Atherosclerotic heart disease of native coronary artery without angina pectoris; E78.5 Hyperlipidemia, unspecified; K21.9 Gastro-esophageal reflux disease without esophagitis; R07.89 Other chest pain; Z95.1 Presence of aortocoronary bypass graft; Z95.810 Presence of automatic (implantable) cardiac defibrillator; Z98.49 Cataract extraction status, unspecified eye; Z59.6 Low income; Z79.890 Hormone replacement therapy; Z79.01 Long term (current) use of anticoagulants; Z99.81 Dependence on supplemental oxygen; Z90.49 Acquired absence of other specified parts of digestive tract; Z20.822 Contact with and (suspected) exposure to COVID-19
CPT/HCPCS: 36415; 71045; 71046; 80048; 80053; 80061; 81001; 82550; 83880; 83970; 84484; 85025; 85610; 85730; 93005; 94799; 99284; J1160; J1940